=== PATIENT | male | born 1945 | race Hispanic/Latino ===

== ENCOUNTER 2016-08-10 09:06 | Inpatient (IN) | payer MEDICARE ==
[2016-08-10 09:44] VITALS: BMI 25.2
[2016-08-10] MEDS ORDERED: Oxycodone/Acetaminophen 5/325 mg Tab PO STA (09:53)
--- NOTE | 2016-08-10 10:01 | ED PDOC ---
Arrival/HPI <Melyssa Germaniy - Last Filed: 08/10/16 16:17> - General Historian: Patient <Valerie Benitez - Last Filed: 08/10/16 16:22> - General Chief Complaint: Abdominal Pain Time Seen by Provider: 08/10/16 09:45 - History of Present Illness Narrative History of Present Illness (Text): 08/10/16 09:58 71-year-old male presents today with epigastric right sided chest pain that has been worsening over the past 6 months. Patient states he was seen by his primary care physician on the and was told to get a CAT scan of the chest. Patient states he couldn't wait any longer for the CAT scan. Patient states he' s been taking Tylenol with codeine for pain with improvement. Patient states he ran out of his medication and he cannot wait any longer for the CAT scan due to the severe pain. Patient states the pain starts epigastric and radiates towards the right side. He denies radiation of pain to the back. Patient states he feels as if he broke his rib. Patient denies any recent trauma or injury. Denies rectal bleeding. Patient states he has had 20+ pound weight loss over the past 3 months. Patient states he has decreased appetite as the pain worsens with eating. Denies nausea or vomiting. No constipation or diarrhea. No other complaints (Valerie Benitez) Past Medical History - Provider Review Nursing Documentation Reviewed: Yes - Travel History Have you recently traveled outside [place] w/in the past 3 mons?: No - Tetanus Immunization Tetanus Immunization: Unknown - Cardiac Hx Congestive Heart Failure: Yes Hx Internal Defibrillator: Yes Hx Mitral Valve Prolapse: Yes (mitral valve replaced) Hx Pacemaker: Yes (LEFT CHEST WALL) - Pulmonary Hx Respiratory Disorders: No - Neurological HX Cerebrovascular Accident: Yes - HEENT Hx HEENT Disorder: Yes (WEARS RX GLASSES) Hx Deafness: Yes (bilateral hearing aids) - Renal Hx Renal Disorder: No - Endocrine/Metabolic Hx Endocrine Disorders: No - Hematological/Oncological Hx Anemia: Yes - Integumentary Hx Dermatological Disorder: No - Musculoskeletal/Rheumatological Hx Musculoskeletal Disorders: No Hx Falls: No - Gastrointestinal Hx Gastrointestinal Disorders: No - Genitourinary/Gynecological Hx Genitourinary Disorders: Yes (OVERACTIVE BLADDER) - Psychiatric Hx Depression: No Hx Emotional Abuse: No Hx Physical Abuse: No Hx Substance Use: No - Surgical History Hx Coronary Stent: Yes (9) Hx Open Heart Surgery: Yes Hx Vascular Surgery: Yes (mitral) - Anesthesia Hx Anesthesia: Yes Hx Anesthesia Reactions: No Hx Malignant Hyperthermia: No - Suicidal Assessment Feels Threatened In Home Enviroment: No <Valerie Benitez - Last Filed: 08/10/16 16:22> Family/Social History - Physician Review Nursing Documentation Reviewed: Yes Family/Social History: Unknown Family HX Smoking Status: Former Smoker Hx Alcohol Use: No Hx Substance Use: No Hx Substance Use Treatment: No <Valerie Benitez - Last Filed: 08/10/16 16:22> Allergies/Home Meds <Baljinder German - Last Filed: 08/10/16 16:17> <Valerie Benitez - Last Filed: 08/10/16 16:22> Allergies/Adverse Reactions: Allergies No Known Allergies Allergy (Verified 08/10/16 09:44) Home Medications: Home Meds Medication Instructions Recorded Confirmed Carvedilol [Coreg] 25 mg PO BID 03/12/13 08/10/16 Nortriptyline [Nortriptyline] 25 mg HS 03/12/13 08/10/16 [id number] Meq Bid 20 meq PO DAILY 03/12/13 08/10/16 Apixaban [Eliquis] 5 mg PO BID 09/22/13 08/10/16 Digoxin [Digitek] 125 mcg PO HS 08/10/16 08/10/16 Furosemide [Lasix] 40 mg PO DAILY 08/10/16 08/10/16 Losartan [Cozaar] 50 mg PO DAILY 08/10/16 08/10/16 Pravastatin Sodium [Pravachol] 40 mg PO HS 08/10/16 08/10/16 Review of Systems - Review of Systems Constitutional: absent: Fatigue, Fevers ENT: absent: Sinus Congestion Respiratory: absent: SOB, Cough Cardiovascular: Chest Pain. absent: Palpitations Gastrointestinal: Abdominal Pain, Appetite Changes. absent: Constipation, Diarrhea, Nausea, Vomiting Genitourinary Male: absent: Dysuria, Frequency Musculoskeletal: absent: Back Pain, Neck Pain Skin: absent: Rash, Pruritis Neurological: absent: Headache, Dizziness Psychiatric: absent: Anxiety, Depression <Valerie Benitez - Last Filed: 08/10/16 16:22> Physical Exam Vital Signs Reviewed: Yes Temperature: Afebrile Blood Pressure: Normal Pulse: Regular Respiratory Rate: Normal Appearance: Positive for: Well-Appearing, Non-Toxic, Uncomfortable Pain Distress: None Mental Status: Positive for: Alert and Oriented X 3 - Systems Exam Head: Present: Atraumatic Mouth: Present: Moist Mucous Membranes Neck: Present: Normal Range of Motion Respiratory/Chest: Present: Clear to Auscultation, Good Air Exchange, Tender to Palpation (minimal tenderness over right anterior and lateral ribs. ). No: Respiratory Distress, Accessory Muscle Use Cardiovascular: Present: Regular Rate and Rhythm Abdomen: Present: Tenderness (+ epigastric tenderness, + ruq tenderness. no lower abdominal tenderness. ), Normal Bowel Sounds, Guarding. No: Distention, Rebound, McBurney's Point Tender Upper Extremity: Present: Normal ROM Lower Extremity: Present: Edema (+ minimal lower ) Neurological: Present: GCS=15, Speech Normal Skin: Present: Warm, Dry, Normal Color. No: Rashes Psychiatric: Present: Alert, Oriented x 3 <Valerie Benitez T - Last Filed: 08/10/16 16:22> Vital Signs Temp Pulse Resp BP Pulse Ox 08/10/16 13:43 64 18 141/68 96 08/10/16 12:07 61 18 143/71 96 08/10/16 10:57 63 18 145/75 96 08/10/16 09:46 97.4 F L 61 22 149/77 96 Medical Decision Making <Baljinder German - Last Filed: 08/10/16 16:17> <Valerie Benitez - Last Filed: 08/10/16 16:22> ED Course and Treatment: 08/10/16 10:07 pt with chest pain and right-sided abdominal pain 6 months. Patient presents with referral for CT of the chest noncontrast. cbc; wbc; 11.5 cmp; bun; 22 ast, alt and alk phos; elevated amylase: wnl lipase: wnl BNP; 2730 trop: 0.09; unchanged from prior. cxr: wnl CT; Moderate emphysematous changes predominant in the upper lobes. No CT evidence of acute pathology or suspicious mass in the lungs. Cardiomegaly. [id number] enlarged main pulmonary artery. Interval appearance of small ascites in the abdomen and pelvis since the previous exam of uncertain etiology. Distended gallbladder contains gallstones without definite CT evidence of acute cholecystitis. Colonic diverticulosis without evidence of diverticulitis. Mild splenomegaly measures 13.3 centimeter. Mildly enlarged retroperitoneal and para-aortic lymph nodes. pt reassessment; pt feeling better after percocet; discussed results with patient in depth; pt to be admitted. case discussed with ; will admit with surgery consult for abdominal pain with case discussed with dr. riley; impression; abdominal pain, distended gallbladder. Admit med/surg with surgery consult (Valerie Benitez) - Lab Interpretations Lab Results: 08/10/16 10:00 08/10/16 10:00 Lab Results 08/10/16 10:00: WBC 11.5 H, RBC 4.69, Hgb 15.2, Hct 44.6, MCV 95.1, MCH 32.4, MCHC 34.1, RDW 14.8 H, Plt Count 202, MPV 12.4 H, Gran % 82.0 H, Lymph % (Auto) 8.9 L, Orange % (Auto) 5.0, Eos % (Auto) 3.8, Baso % (Auto) 0.3, Gran # 9.40 H, Lymph # 1.0 L, Orange # 0.6, Eos # 0.4, Baso # 0.03, Sodium 142, Potassium 4.1, Chloride 104, Carbon Dioxide 28, Anion Gap 14, BUN 22 H, Creatinine 0.9, Est GFR ( Amer) > 60, Est GFR (Non-Af Amer) > 60, Random Glucose 93, Calcium 8.9, Total Bilirubin 0.9, AST 132 H, ALT 88 H, Alkaline Phosphatase 219 H, Lactate Dehydrogenase 465, Total Creatine Kinase 36, Troponin I 0.09, NT-Pro-B Natriuret Pep 2730 H, Total Protein 6.6, Albumin 3.2, Globulin 3.4, Albumin/ Globulin Ratio 0.9 L, Amylase 55, Lipase 238 - RAD Interpretation Radiology Orders: 08/10/16 09:52 CHEST PORTABLE [RAD] Stat 08/10/16 09:55 CHEST,ABD,PEL W/IV CONT ONLY [CT] Stat - Medication Orders Current Medication Orders: Discontinued Medications Iohexol (Omnipaque 350 100 Ml) Confirm Administered Dose 350 mg .ROUTE .STK-MED ONE Stop: 08/10/16 10:38 Oxycodone/Acetaminophen (Percocet 5/325 Mg Tab) 1 tab PO STAT STA Stop: 08/10/16 09:54 Last Admin: 08/10/16 10:17 Dose: 1 TAB - PA / [employer] / Resident Statement /DO has reviewed & agrees with the documentation as recorded. <Baljinder German - Last Filed: 08/10/16 16:17> Disposition/Present on Arrival <Baljinder German - Last Filed: 08/10/16 16:17> - Present on Arrival Any Indicators Present on Arrival: No History of DVT/PE: No History of Uncontrolled Diabetes: No Urinary Catheter: No History of Decub. Ulcer: No History Surgical Site Infection Following: None - Disposition Have Diagnosis and Disposition been Completed?: Yes Disposition Time: 12:30 Patient Plan: Admission <Valerie Benitez - Last Filed: 08/10/16 16:22> - Disposition Diagnosis: Abdominal pain, Gallstones Disposition: HOSPITALIZED Patient Problems: Current Active Problems Problem Status Diagnosed Abdominal pain Acute Gallstones Acute Condition: FAIR
[2016-08-10 10:07] LABS: ADD MANUAL DIFF? NO
[2016-08-10 10:20] LABS: ALB/GLOB RATIO 0.9 (1.1-1.8); ALKALINE PHOSPHATASE 219 U/L (38-133); ALT/SGPT 88 U/L (7-56); AMYLASE 55 U/L (35-125); AST/SGOT 132 U/L (15-59); BILIRUBIN,TOTAL 0.9 mg/dL (0.2-1.3); BLOOD UREA NITROGEN 22 mg/dL (7-21); CALCIUM 8.9 mg/dL (8.4-10.5); CARBON DIOXIDE 28 mmol/L (21-33); CHLORIDE 104 mmol/L (98-107); GFR AFRICAN-AMERICAN > 60; GLUCOSE,RANDOM 93 mg/dL (70-110); LIPASE 238 U/L (23-300); POTASSIUM 4.1 mmol/L (3.6-5.0); SODIUM 142 mmol/L (132-148); TOTAL PROTEIN 6.6 g/dL (5.8-8.3)
[2016-08-10 10:31] LABS: TROPONIN I 0.09 ng/mL
[2016-08-10 10:34] LABS: BASO # 0.03 K/mm3 (0.0-2.0); BASO % 0.3 % (0.0-3.0); EOS # 0.4 (0.0-0.7); EOS % 3.8 % (1.5-5.0); HEMATOCRIT 44.6 % (42.0-52.0); LYMPH % 8.9 % (22.0-35.0); MEAN CELL VOLUME 95.1 fL (80.0-105.0); MEAN CORPUSCULAR HEMOGLOBIN 32.4 pg (25.0-35.0); MEAN CORPUSCULAR HGB CONC 34.1 g/dl (31.0-37.0); MEAN PLATELET VOLUME 12.4 fl (7.0-11.0); MONO # 0.6 (0.1-0.6); PLATELET COUNT 202 10^3/uL (120.0-450.0); RED CELL DISTRIBUTION WIDTH 14.8 % (11.5-14.5); WHITE BLOOD COUNT 11.5 10^3/ul (4.5-11.0)
--- NOTE | 2016-08-10 10:34 | RAD ---
HISTORY: epigastric pain/chest pain COMPARISON: 09/11/2013 FINDINGS: LUNGS: No active pulmonary disease. PLEURA: No significant pleural effusion identified, no pneumothorax apparent. CARDIOVASCULAR: AICD. Cardiac valvular prosthesis. OSSEOUS STRUCTURES: No significant abnormalities. VISUALIZED UPPER ABDOMEN: Normal. OTHER FINDINGS: None. IMPRESSION: No active disease.
[2016-08-10] MEDS ORDERED: Iohexol 350 MG/100 ML VIAL ONE (10:37)
--- NOTE | 2016-08-10 12:23 | CT ---
PROCEDURE: CT Chest, Abdomen and Pelvis with intravenous contrast HISTORY: ruq abd pain COMPARISON: Comparison is made to the previous CT of the abdomen and pelvis dated 09/11/2013. TECHNIQUE: IV dose administered: 100 mL Omnipaque 350 Radiation dose: Total exam DLP = 507.95 mGy-cm. FINDINGS: CT CHEST WITH CONTRAST: LUNGS: Moderate to mildly severe diffuse emphysema predominant in the upper lobes. Again seen are pleural thickening and or pleural base linear opacity at the left lower chest. MEDIASTINUM: The main pulmonary artery is moderately enlarged. The thoracic aorta is ectatic and tortuous. Postsurgical changes are again seen in the mediastinal suggestive of prior cardiac surgery. Pacemaker wires seen extending to the heart. The heart is moderately enlarged. LYMPH NODES: Mildly enlarged 1.5 centimeter precarinal lymph node is seen. PLEURA: Trace left pleural effusion is seen. BONES: Unremarkable. OTHER FINDINGS: None. CT ABDOMEN AND PELVIS: LIVER: Again seen is low-attenuation lesion at the right liver lobe likely represent benign cyst or hemangioma. Also again seen are small sub centimeter right liver lobe low-attenuation lesion. The portal vein is patent. Mild periportal edema is also noted. GALLBLADDER AND BILE DUCTS: The gallbladder is mildly distended contains gallstone. PANCREAS: Unremarkable. No gross lesion or ductal dilatation. SPLEEN: Spleen is mildly enlarged measures 13.3 centimeter P ADRENALS: Unremarkable. No mass. KIDNEYS AND URETERS: The kidneys enhance symmetrically. Again seen is small focal defect in the left renal cortex likely due to old infarct or injury. VASCULATURE: Unremarkable. No aortic aneurysm. BOWEL: Descending and sigmoid colon diverticulosis are again seen without evidence of diverticulitis. No evidence of small bowel obstruction. APPENDIX: No evidence of appendicitis. PERITONEUM: Interval appearance of small ascites in the abdomen and pelvis since the previous exam. LYMPH NODES: There are prominent retroperitoneal and para-aortic lymph nodes seen at the mid and lower abdomen appear larger compared to the previous exam. BLADDER: Mild urinary bladder wall thickening is seen. REPRODUCTIVE: Prostate is mildly enlarged. BONES: No acute fracture. OTHER FINDINGS: None. IMPRESSION: Moderate emphysematous changes predominant in the upper lobes. No CT evidence of acute pathology or suspicious mass in the lungs. Cardiomegaly. [id number] enlarged main pulmonary artery. Interval appearance of small ascites in the abdomen and pelvis since the previous exam of uncertain etiology. Distended gallbladder contains gallstones without definite CT evidence of acute cholecystitis. Colonic diverticulosis without evidence of diverticulitis. Mild splenomegaly measures 13.3 centimeter. Mildly enlarged retroperitoneal and para-aortic lymph nodes.
--- NOTE | 2016-08-10 12:51 | CARD ---
APPROVED REPORT EKG Measurement Heart [id number] AL 144P [id number] <Conclusion> AV sequential or dual chamber electronic pacemaker
--- NOTE | 2016-08-10 15:29 | CP.PCM.CON ---
History of Present Illness - History of Present Illness History of Present Illness: SURGERY CONSULT NOTE FOR DR. WHEELER 71M presents to [facility] with abdominal pain. Patient states pain started two months ago and has been increasing in intensity since. Patient states the pain is located in the epigastric region and radiates to the right upper quadrant. Originally thought the pain was due to a broken rib and was self treating with pain medications at home which have now stopped working. Pain gets worse with food. He denies fevers, chills, nausea, vomiting, diarrhea and constipation. He has not had this pain before in the past. 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 Social: Denies tobacco, alcohol and illicit drugs Allergies: NKDA Past Patient History - Tetanus Immunizations Tetanus Immunization: Unknown - Past Social History Smoking Status: Former Smoker - CARDIAC Hx Congestive Heart Failure: Yes Hx Internal Defibrillator: Yes Hx Mitral Valve Prolapse: Yes (mitral valve replaced) Hx Pacemaker: Yes (LEFT CHEST WALL) - PULMONARY Hx Respiratory Disorders: No - NEUROLOGICAL HX Cerebrovascular Accident: Yes - HEENT Hx HEENT Problems: Yes (WEARS RX GLASSES) Hx Deafness: Yes (bilateral hearing aids) - RENAL Hx Chronic Kidney Disease: No - ENDOCRINE/METABOLIC Hx Endocrine Disorders: No - HEMATOLOGICAL/ONCOLOGICAL Hx Anemia: Yes - INTEGUMENTARY Hx Dermatological Problems: No - MUSCULOSKELETAL/RHEUMATOLOGICAL Hx Musculoskeletal Disorders: No Hx Falls: No - GASTROINTESTINAL Hx Gastrointestinal Disorders: No - GENITOURINARY/GYNECOLOGICAL Hx Genitourinary Disorders: Yes (OVERACTIVE BLADDER) - PSYCHIATRIC Hx Depression: No Hx Emotional Abuse: No Hx Physical Abuse: No Hx Substance Use: No - SURGICAL HISTORY Hx Coronary Stent: Yes (9) Hx Open Heart Surgery: Yes Hx Vascular Surgery: Yes (mitral) - ANESTHESIA Hx Anesthesia: Yes Hx Anesthesia Reactions: No Hx Malignant Hyperthermia: No Meds Allergies/Adverse Reactions: Allergies Allergy/AdvReac Type Severity Reaction Status Date / Time No Known Allergies Allergy Verified 08/10/16 09:44 Physical Exam - Constitutional Appears: Non-toxic, No Acute Distress - Head Exam Head Exam: ATRAUMATIC - ENT Exam ENT Exam: Mucous Membranes Moist - Respiratory Exam Respiratory Exam: Clear to Auscultation Bilateral, NORMAL BREATHING PATTERN - Cardiovascular Exam Cardiovascular Exam: REGULAR RHYTHM, +S1, +S2 - GI/Abdominal Exam GI & Abdominal Exam: Soft, Tenderness. absent: Distended, Firm, Guarding, Rebound, Rigid Additional comments: epigastric pain, RUQ pain, positive chan's sign - Extremities Exam Extremities exam: Positive for: normal inspection. Negative for: tenderness - Neurological Exam Neurological exam: Alert, Oriented x3 - Psychiatric Exam Psychiatric exam: Normal Affect, Normal Mood - Skin Skin Exam: Dry, Intact, Normal Color, Warm Results - Vital Signs Recent Vital Signs: Last Vital Signs Temp 97.4 F L 08/10/16 09:46 Pulse 64 08/10/16 13:43 Resp 18 08/10/16 13:43 BP 141/68 08/10/16 13:43 Pulse Ox 96 08/10/16 13:43 - Labs Result Diagrams: 08/10/16 10:00 08/10/16 10:00 Assessment & Plan - Assessment and Plan (Free Text) Assessment: 71M presents with RUQ pain likely 2/2 cholelithiasis/biliary colic CT: Distended gallbladder, cholelithiasis, no evidence of cholecystitis Plan: - NPO, IVF, Abx - Pain control, anti-emetic, anti-pyretics PRN - F/u US results - F/u HIDA Discussed with Dr. Seble Ellis, PGY1
[2016-08-10] MEDS ORDERED: Sodium Chloride 0.9% 1,000 ML IV SCH (17:15)
[2016-08-10] MEDS: cefTRIAXone 1 gm 100 ML IVPB SCH (19:17)
[2016-08-10] MEDS ORDERED: Pneumococcal 23-Valent Vaccine IM ONE (22:54)
[2016-08-10] MEDS ORDERED: Influenza Vaccine 45 MCG/0.5 ml IM ONE (22:54)
[2016-08-11] MEDS ORDERED: Digoxin 125 mcg (0.125 mg) Tab PO STA (00:51)
--- NOTE | 2016-08-11 00:59 | CP.PCM.PN ---
Subjective - Date & Time of Evaluation Date of Evaluation: 08/11/16 Time of Evaluation: 00:55 - Subjective Subjective: S:Seen at bedside. Has no acute symptoms. Wants home meds that he did not have all day yesterday. Pertinent medical record was reviewed. O: Last Vital Signs 3 Temp 97.5 F L 08/10/16 22:32 Pulse 58 L 08/10/16 22:32 Resp 18 08/10/16 22:32 BP 125/75 08/10/16 22:32 Pulse Ox 94 L 08/10/16 16:00 Awake, alert, not in distress. LUNGS:Normal breathing pattern. A:Abdominal pain-epigastric. HTN. P:Stat dose of Amiodarone,Cozzar, Digitek and Coreg each was ordered. Objective - Vital Signs/Intake and Output Vital Signs (last 24 hours): Temp Pulse Resp BP Pulse Ox 97.5 F L 58 L 18 125/75 94 L 08/10/16 22:32 08/10/16 22:32 08/10/16 22:32 08/10/16 22:32 08/10/16 16:00 Intake and Output: 08/10/16 08/11/16 18:59 06:59 Intake Total 240 Balance 240 - Medications Medications: Current Medications Acetaminophen (Tylenol 325mg Tab) 650 mg PO Q6H PRN PRN Reason: Fever >100.4 F Carvedilol (Coreg) 25 mg PO STAT STA Stop: 08/11/16 00:51 Digoxin (Lanoxin) 0.125 mg PO STAT STA Stop: 08/11/16 00:52 Ceftriaxone Sodium (Rocephin 1 Gram Ivpb) 100 mls @ 100 mls/hr IVPB DAILY [facility] PRN Reason: Protocol Last Admin: 08/10/16 19:17 Dose: 100 mls/hr Sodium Chloride (Sodium Chloride 0.9%) 1,000 mls @ 100 mls/hr IV .Q10H [facility] Last Admin: 08/10/16 19:17 Dose: 100 mls/hr Ketorolac Tromethamine (Toradol) 5 mg IVP Q6 PRN PRN Reason: Pain, moderate (4-7) Ondansetron HCl (Zofran Inj) 4 mg IVP Q6H PRN PRN Reason: Nausea/Vomiting
--- NOTE | 2016-08-11 07:12 | CP.PCM.PN ---
Subjective - Date & Time of Evaluation Date of Evaluation: 08/11/16 Time of Evaluation: 06:40 - Subjective Subjective: Pt seen and evaluated at the bedside. Pt denies abdominal pain, n/v/fever/ chills. Objective - Vital Signs/Intake and Output Vital Signs (last 24 hours): Temp Pulse Resp BP Pulse Ox 97.5 F L 60 18 126/78 94 L 08/10/16 22:32 08/11/16 01:07 08/10/16 22:32 08/11/16 01:07 08/10/16 16:00 Intake and Output: 08/11/16 08/11/16 06:59 18:59 Intake Total 1680 Balance 1680 - Medications Medications: Current Medications Acetaminophen (Tylenol 325mg Tab) 650 mg PO Q6H PRN PRN Reason: Fever >100.4 F Amiodarone HCl (Cordarone) 200 mg PO BID [facility] Apixaban (Eliquis) 5 mg PO BID [facility] PRN Reason: Protocol Carvedilol (Coreg) 25 mg PO BID [facility] Digoxin (Lanoxin) 0.125 mg PO 1400 [facility] Ceftriaxone Sodium (Rocephin 1 Gram Ivpb) 100 mls @ 100 mls/hr IVPB DAILY [facility] PRN Reason: Protocol Last Admin: 08/10/16 19:17 Dose: 100 mls/hr Sodium Chloride (Sodium Chloride 0.9%) 1,000 mls @ 100 mls/hr IV .Q10H [facility] Last Admin: 08/10/16 19:17 Dose: 100 mls/hr Ketorolac Tromethamine (Toradol) 5 mg IVP Q6 PRN PRN Reason: Pain, moderate (4-7) Losartan Potassium (Cozaar) 50 mg PO DAILY [facility] Nortriptyline HCl (Pamelor) 25 mg PO HS [facility] Ondansetron HCl (Zofran Inj) 4 mg IVP Q6H PRN PRN Reason: Nausea/Vomiting - Additional Findings Additional findings: - Constitutional Appears: Non-toxic, No Acute Distress - Head Exam Head Exam: ATRAUMATIC - ENT Exam ENT Exam: Mucous Membranes Moist - Respiratory Exam Respiratory Exam: Clear to Auscultation Bilateral, NORMAL BREATHING PATTERN - Cardiovascular Exam Cardiovascular Exam: REGULAR RHYTHM, +S1, +S2 - GI/Abdominal Exam GI & Abdominal Exam: Soft, Tenderness of epigastric region. absent: Distended, Firm, Guarding, Rebound, Rigid Additional comments: epigastric pain - Extremities Exam Extremities exam: Positive for: normal inspection. Negative for: tenderness - Neurological Exam Neurological exam: Alert, Oriented x3 - Psychiatric Exam Psychiatric exam: Normal Affect, Normal Mood - Skin Skin Exam: Dry, Intact, Normal Color, Warm Assessment and Plan - Assessment and Plan (Free Text) Plan: 71M presents with RUQ pain likely 2/2 cholelithiasis/biliary colic CT: Distended gallbladder, cholelithiasis, no evidence of cholecystitis Plan: - HHD, IVF, Abx -Tentative cholecystectomy on - Pain control, anti-emetic, anti-pyretics PRN - US ABD: gallbladder sludge and gallstones w/o ultrasound evidence of acute cholecystitis - HIDA: gallbladder at 15 minutes, CBD at 5 minutes Further recs as per Dr. Artem Dozier, PGY1
--- NOTE | 2016-08-11 07:35 | US ---
HISTORY: RUQ pain, possible cholecystitis on CT COMPARISON: Comparison is made to the previous CT dated 08/10/2016 TECHNIQUE: Sonographic evaluation of the abdomen. FINDINGS: LIVER: Measures 15.6 cm. Mild heterogeneous increased echogenicity of the liver parenchyma. No mass. No intrahepatic bile duct dilatation. GALLBLADDER: There are small gallstones seen. There is also small amount of sludge. No evidence of significant gallbladder wall thickening. COMMON BILE DUCT: Measures 5.7 mm. No stones. No dilatation. PANCREAS: Unremarkable as visualized. No mass. No ductal dilatation. RIGHT KIDNEY: Measures 11 x 3.98 x 5.7cm. Normal echogenicity. No calculus, mass, or hydronephrosis. LEFT KIDNEY: Measures 12.4 x 4.8 x 5.1cm. Normal echogenicity. No calculus, mass, or hydronephrosis. SPLEEN: Spleen is mildly enlarged measures 13.3 centimeter. AORTA: No aneurysmal dilatation. IVC: Unremarkable. OTHER FINDINGS: There is a trace ascites in the abdomen. IMPRESSION: Gallbladder sludge and gallstones without definite ultrasound evidence of acute cholecystitis. Mild splenomegaly measures 13.3 centimeter. Trace ascites in the upper abdomen. Mildly echogenic liver suggestive of fatty liver.
[2016-08-11 08:14] LABS: HEMATOCRIT 40.2 % (42.0-52.0); MEAN CORPUSCULAR HEMOGLOBIN 32.2 pg (25.0-35.0); MEAN CORPUSCULAR HGB CONC 33.8 g/dl (31.0-37.0); MEAN PLATELET VOLUME 11.9 fl (7.0-11.0); RED CELL DISTRIBUTION WIDTH 15.1 % (11.5-14.5); WHITE BLOOD COUNT 9.6 10^3/ul (4.5-11.0)
[2016-08-11 08:45] LABS: ALB/GLOB RATIO 0.9 (1.1-1.8); ALKALINE PHOSPHATASE 190 U/L (38-133); ALT/SGPT 82 U/L (7-56); AST/SGOT 120 U/L (15-59); BILIRUBIN,TOTAL 1.1 mg/dL (0.2-1.3); BLOOD UREA NITROGEN 14 mg/dL (7-21); CALCIUM 8.5 mg/dL (8.4-10.5); CARBON DIOXIDE 29 mmol/L (21-33); CHLORIDE 104 mmol/L (98-107); GFR AFRICAN-AMERICAN > 60; GLUCOSE,RANDOM 81 mg/dL (70-110); POTASSIUM 4.3 mmol/L (3.6-5.0); SODIUM 140 mmol/L (132-148); TOTAL PROTEIN 5.7 g/dL (5.8-8.3)
[2016-08-11] MEDS: cefTRIAXone 1 gm 100 ML IVPB SCH (09:52)
[2016-08-11] MEDS ORDERED: Sodium Chloride 0.9% 1,000 ML IV SCH (10:00)
[2016-08-11] MEDS: Enoxaparin 60 mg Syringe SC SCH ×2 (10:45→21:06)
--- NOTE | 2016-08-11 10:58 | PN ---
DATE: 08/11/2016 The patient was seen at the request of the patient and family. Will discuss with Dr. Dong. Will discuss with Dr. Pruett and Dr. Moon. Francisco Mcgill MD cc: [phone] TT: 08/11/2016 10:58:09 Confirmation # [id number] Dictation # [id number] cn
--- NOTE | 2016-08-11 14:01 | NM ---
PROCEDURE: Nuclear Medicine Hepatobiliary Scan HISTORY: RUQ pain COMPARISON: August 11, 2016. Abdominal ultrasound. Summary of findings on the comparison examination: Gallbladder sludge and gallstones without definite ultrasound evidence of acute cholecystitis. TECHNIQUE: 5.2 mCi of technetium 99m Mebrofenin was administered intravenously. Planar images of the abdomen were obtained at 5 min intervals to 60 mins. Delayed images were also obtained. FINDINGS: LIVER: Timely and homogenous uptake. COMMON BILE DUCT: identified at 5 mins. GALLBLADDER: identified at 15 mins. SMALL BOWEL: Identified at 15 mins. IMPRESSION: Normal Hepatobiliary Scan. The cystic duct is patent.
[2016-08-11 14:17] LABS: INR 1.31 (0.93-1.08); PARTIAL THROMBOPLASTIN TIME 33.1 Seconds (23.7-30.8)
[2016-08-11] MEDS: Digoxin 125 mcg (0.125 mg) Tab PO SCH (14:34)
--- NOTE | 2016-08-11 21:21 | HP ---
CHIEF COMPLAINT AND HISTORY OF PRESENT ILLNESS: This is a 71-year-old male who is [facility] complaining of epigastric pain. He said that the pain has been worsening over the past 6 camryn hs. He had seen his primary care physician and was waiting to get a CAT scan of his chest. The patie nt said he has been taking Tylenol with codeine with some improvement. He had run out of his medicat ions. The patient says he has been losing weight as well. He has lost about 20 pounds. He denies a ny bleeding. He denies any nausea or vomiting. He has no constipation. He has no fever or chills, no headaches. He says he has been trying to eat a good appetite, but has been losing weight. He has no fevers or chills. REVIEW OF SYSTEMS: All other review of symptoms are within normal limits except as mentioned. ALLERGIES: No known drug allergies. PAST MEDICAL HISTORY: Coronary artery disease, hypertension, dyslipidemia. PAST SURGICAL HISTORY: AICD, CABG, giant cell tumor of right elbow. SOCIAL HISTORY: Denies smoking, drinking alcohol. ALLERGIES: No known drug allergies. MEDICATIONS: No active medications. PHYSICAL EXAMINATION: VITAL SIGNS: He has a temperature of 97.7, pulse of 60, blood pressure 137/71, respirations 18, O2 saturation 92%. Height is 5 feet 4, weight is 147 pounds, BMI is 25.2. GENERAL: Patient lying in bed, flat, and in no apparent distress. HEAD AND NECK EXAM: Atraumatic, normocephalic. Conjunctivae are pink. Throat clear and mouth with moist mucosa. Oropharynx benign. EYES: Extraocular movements are intact. PERRLA. NECK: Supple. No JVD, thyromegaly, or adenopathy. No bruits. HEART: S1 and S2 regular rate and rhythm. No murmurs, rubs, or gallops. LUNGS: Clear to auscultation bilaterally. No wheezing rales or rhonchi appreciated. No retraction s on exam. ABDOMEN: Soft, nontender, nondistended. Bowel sounds are positive in all quadrants. No rebound. No hepatosplenomegaly. EXTREMITIES: No cyanosis, clubbing, or edema. NEURO: No facial asymmetry, tongue is midline, no uvula deviation. Power is 5/5 in upper extremity and 5/5 in lower extremity. Sensation is normal in upper extremity and lower extremity. PSYCH: Awake, alert, oriented x3. No anxiety or depression symptoms. Good insight. Normal affec t. : No CVA tenderness VASCULAR: 2+ pulses in carotid and pedal pulses. SKIN: No erythema or abnormal nodules noted. SPINE: Normal curvature. LYMPHADENOPATHY: No anterior cervical or posterior cervical adenopathy. No inguinal adenopathy. LABORATORY DATA: CT of the abdomen and pelvis shows enlarged liver. There are low attenuation lesio ns that are present. There are moderate emphysematous changes in the upper lobes, distended gallblad sidney, gallstones without evidence of acute cholecystitis, mild splenomegaly. Chest x-ray shows no act patrice disease. EKG shows a heart rate of 60, it is AV paced. Ultrasound done shows gallbladder sludge and gallstones without evidence of acute cholecystitis. The re is a fatty liver. Biliary HIDA scan shows normal hepatobiliary scan. The cystic duct is patent. ASSESSMENT: 1. Abdominal pain. 2. Hepatomegaly. 3. Splenomegaly. 4. Liver lesions, possibly benign cyst versus hemangioma. 5. Weight loss. PLAN: The patient is currently comfortable. He is currently on amiodarone. This will be continued. The patient is on Coreg. This will be continued for his coronary disease. He is on losartan for h is blood pressure. He is on Lovenox for anticoagulation because his Eliquis has been on hold for pos sible surgical intervention. The patient is on digoxin. He is receiving Rocephin for antibiotic. H e is on IV fluids with normal saline. I will discontinue the patient's IV fluids at this point becau se he is eating. The patient is on Tylenol as needed. He is on Zofran. I did speak to Dr. Mcgill from surgery who is on the case and also Dr. Smith about the case. He may need endoscopy to look at those liver lesions closely. Silvino Dong MD cc: [id number] TT: 08/11/2016 21:20:55 dina
[2016-08-11] MEDS: Oxycodone/Acetaminophen 5/325 mg Tab PO PRN (23:32)
--- NOTE | 2016-08-12 08:28 | CON ---
DATE: 08/11/2016 This patient was seen and evaluated earlier, discussed with Dr. Dong. This 71-year-old patient w ith a past medical history of coronary artery disease, hypertension, dyslipidemia, status post AICD p lacement presented to the hospital with complaints of intermittent episodes of progressive pain in th e epigastric area. At times, he feels the pain radiate to the right side. Complains of pain ____ af ter p.o. intake. No fever, no vomiting. History of weight loss, more than 10 pounds with a period o f 3-4 months. OTHER PAST MEDICAL HISTORY: Significant as above, history of colonic polyp, gastric ulceration, GI b leeding in the past. PAST SURGICAL HISTORY: Significant for excision of the tumor right elbow, CABG. SOCIAL HISTORY: Denied smoking, no alcohol. ALLERGIES: No known drug allergy. REVIEW OF SYSTEMS: Positive as above. All the 10-point systems reviewed. PHYSICAL EXAMINATION: GENERAL: The patient is lying on the bed, not in acute distress. VITAL SIGNS: Temperature is 97.7, pulse 66, blood pressure 137/71. HEENT: Atraumatic, anicteric. NECK: Supple. HEART: S1, S2 heard. LUNGS: Bilateral air entry present. EXTREMITIES: No cyanosis, no clubbing, mild edema present. NEUROLOGIC: Moves all the extremities. LABORATORY DATA: Hemoglobin 13.6, hematocrit 40.2, WBCs 9.6, platelets 189. BUN 14, creatinine 0.8. LFTs showed albumin 2.7, AST 120, ALT 82, alkaline phosphatase 190. The CT scan of the abdomen and pelvis was reviewed, which showed gallstones, small ascites and hepato megaly. Ultrasound scan of the abdomen showed multiple small gallstones. No wall thickening, CBD me asured 5.7 mm, normal, pancreas normal. Subsequent CT was also reviewed. IMPRESSION: This 71-year-old patient admitted with progressive weight loss of nearly close to 20 jairo nds in the last 3 months, history of chronic abdominal pain, has abdominal pain in the epigastric are a, has a history of loss of appetite, abdominal symptoms. PHYSICAL EXAMINATION: GENERAL: The patient is lying on the bed, not in acute distress. ABDOMEN: Soft. There is no mass palpable, no tenderness. VITAL SIGNS: Temperature is 97.7, blood pressure 131/71, pulse 60, respirations ____, O2 saturation is ____. IMPRESSION: This 79-year-old patient initially presented because of the worsening of the epigastric abdominal discomfort, history of loss of weight. Would recommend hepatomegaly. A small liver lesion is noticed. This CAT scan was compared with the one done ____. REVIEW OF SYSTEMS: A 10-point system reviewed, negative. PHYSICAL EXAMINATION: VITAL SIGNS: Temperature 97.7, blood pressure 137/71, pulse 60, respiration is 18. HEENT: Atraumatic, anicteric. NECK: Supple. HEART: S1, S2 heard. LUNGS: Bilateral air entry present. ABDOMEN: Soft. There is no tenderness. EXTREMITIES: No cyanosis, no clubbing. ____. LABORATORY DATA: LFTs mildly elevated, AST is 120, ALT is 62 and alkaline phosphatase 190, shows mil d improvement compared to the abdominal x-ray done yesterday, of the ultrasound ____. The CAT scan w as also reviewed. Hepatic lesion appears to be stable. IMPRESSION: A 71-year-old patient admitted with significant weight loss of nearly 20 pounds, worseni ng of the abdominal pain, especially epigastric pain, history of coronary artery disease. The patien t does have a large ____. The patient had HIDA scan done, which was negative, history of gallstones. Would recommend upper gastrointestinal endoscopy to rule out any peptic ulcer disease, rule out neopl chago. Discussed with Dr. Dong. The patient is scheduled for the procedure in a.m. Kiana Smith MD cc: [id number] TT: 08/12/2016 08:23:07 Confirmation # [id number] Dictation # [id number]
--- NOTE | 2016-08-12 08:31 | CP.PCM.PN ---
Subjective - Date & Time of Evaluation Date of Evaluation: 08/12/16 Time of Evaluation: 07:40 - Subjective Subjective: Pt seen and evaluated at the bedside. Pt denies N/V overnight. Afebrile. Abdominal pain has been improved today. Objective - Vital Signs/Intake and Output Vital Signs (last 24 hours): Temp Pulse Resp BP Pulse Ox 97.7 F 66 18 137/71 92 L 08/11/16 16:32 08/11/16 17:26 08/11/16 16:32 08/11/16 17:26 08/11/16 16:32 Intake and Output: 08/12/16 08/12/16 06:59 18:59 Intake Total 840 Balance 840 - Medications Medications: Current Medications Acetaminophen (Tylenol 325mg Tab) 650 mg PO Q6H PRN PRN Reason: Fever >100.4 F Amiodarone HCl (Cordarone) 200 mg PO BID [facility] Last Admin: 08/11/16 17:25 Dose: 200 mg Carvedilol (Coreg) 25 mg PO BID [facility] Last Admin: 08/11/16 17:26 Dose: 25 mg Digoxin (Lanoxin) 0.125 mg PO 1400 [facility] Last Admin: 08/11/16 14:34 Dose: Not Given Enoxaparin Sodium (Lovenox) 60 mg SC Q12H [facility] PRN Reason: Protocol Last Admin: 08/11/16 21:06 Dose: 60 mg Ceftriaxone Sodium (Rocephin 1 Gram Ivpb) 100 mls @ 100 mls/hr IVPB DAILY [facility] PRN Reason: Protocol Last Admin: 08/11/16 09:52 Dose: 100 mls/hr Ketorolac Tromethamine (Toradol) 5 mg IVP Q6 PRN PRN Reason: Pain, moderate (4-7) Last Admin: 08/11/16 20:59 Dose: 5 mg Losartan Potassium (Cozaar) 50 mg PO DAILY [facility] Last Admin: 08/11/16 09:52 Dose: Not Given Nortriptyline HCl (Pamelor) 25 mg PO HS [facility] Last Admin: 08/11/16 22:26 Dose: Not Given Ondansetron HCl (Zofran Inj) 4 mg IVP Q6H PRN PRN Reason: Nausea/Vomiting Oxycodone/Acetaminophen (Percocet 5/325 Mg Tab) 1 tab PO Q4H PRN PRN Reason: Pain, moderate (4-7) Stop: 08/14/16 22:42 Last Admin: 08/11/16 23:32 Dose: 1 tab - Labs Labs: 08/11/16 08:00 08/11/16 08:00 PT 14.1 Seconds (9.9-11.8) H 08/11/16 14:01 INR 1.31 (0.93-1.08) H 08/11/16 14:01 APTT 33.1 Seconds (23.7-30.8) H 08/11/16 14:01 - Additional Findings Additional findings: - Constitutional Appears: Non-toxic, No Acute Distress - Head Exam Head Exam: ATRAUMATIC - ENT Exam ENT Exam: Mucous Membranes Moist - Respiratory Exam Respiratory Exam: Clear to Auscultation Bilateral, NORMAL BREATHING PATTERN - Cardiovascular Exam Cardiovascular Exam: REGULAR RHYTHM, +S1, +S2 - GI/Abdominal Exam GI & Abdominal Exam: Soft, Tenderness of epigastric region. absent: Distended, Firm, Guarding, Rebound, Rigid - Extremities Exam Extremities exam: Positive for: normal inspection. Negative for: tenderness - Neurological Exam Neurological exam: Alert, Oriented x3 - Psychiatric Exam Psychiatric exam: Normal Affect, Normal Mood - Skin Skin Exam: Dry, Intact, Normal Color, Warm Assessment and Plan - Assessment and Plan (Free Text) Plan: 71M presents with RUQ pain likely 2/2 cholelithiasis/biliary colic CT: Distended gallbladder, cholelithiasis, no evidence of cholecystitis US ABD: gallbladder sludge and gallstones w/o ultrasound evidence of acute cholecystitis HIDA: gallbladder at 15 minutes, CBD at 5 minutes Cardiac consultation: Plan: - IVF, Abx -Tentative OR on , NPO - Pain control, anti-emetic, anti-pyretics PRN Further recs as per Dr. Artem Dozier, PGY1
--- NOTE | 2016-08-12 08:46 | PN ---
DATE: 08/12/2016 SUBJECTIVE: The patient says he was having abdominal pain yesterday after he had a meal. He has no complaints of any chest pain or shortness of breath, no headaches. PHYSICAL EXAMINATION: VITAL SIGNS: Temperature is 97.7, pulse of 66, blood pressure is 137/71, respirations 18. GENERAL: The patient comfortable, in no acute distress. HEENT: Anicteric sclerae. Moist mucosa. NECK: No JVD or adenopathy. CARDIAC: S1/S2. No murmurs. No rubs. Regular. RESPIRATORY: Clear to auscultation bilaterally. No wheezes, rales, or rhonchi. Good air entry. ABDOMEN: Bowel sounds are positive, soft, nontender, and nondistended. EXTREMITIES: No edema. Has 1+ pulses. LABORATORY DATA: White count of 9.6, hemoglobin 13.6, creatinine 0.8. The patient's HIDA scan that was done is a normal hepatobiliary scan, the cystic duct is normal. ASSESSMENT: 1. Abdominal pain. 2. Hepatosplenomegaly. 3. Liver lesions, probably benign cyst versus hemangioma. 4. Weight loss. 5. Coronary artery disease, status post coronary artery bypass graft. 6. Cholelithiasis. 7. Atrial fibrillation, on anticoagulation. PLAN: The patient is currently on amiodarone, so he will continue. He is on Coreg. The patient is receiving losartan for high blood pressure. His is on Lovenox. Awaiting decision about surgery. Th e patient is on . The patient is on Tylenol. He is currently on a liquid diet. I did speak to Dr. Smith regarding the case yesterday. I am not sure if the patient has an acute need for surgi xochitl intervention. He may be having abdominal discomfort after eating secondary to the hepatosplenome mary. I am not sure of the etiology of hepatosplenomegaly. I will await further input from the [facility]. Silvino Dong MD cc: [id number] TT: 08/12/2016 08:46:13 Confirmation # [id number] Dictation # [id number] mn
[2016-08-12] MEDS: cefTRIAXone 1 gm 100 ML IVPB SCH (10:09)
[2016-08-12] MEDS: Enoxaparin 60 mg Syringe SC SCH (10:13)
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
[2016-08-12] MEDS: Digoxin 125 mcg (0.125 mg) Tab PO SCH (12:59)
[2016-08-12] MEDS ORDERED: Propofol 10 mg/ml Inj (20 ML) ONE ×3 (18:07→18:49)
[2016-08-12] MEDS ORDERED: Lidocaine 2% Inj (20ml) ONE (18:07)
[2016-08-12] MEDS ORDERED: Lactated Ringer's 1,000 ML IV SCH (18:30)
[2016-08-12] MEDS ORDERED: Sodium Chloride 0.9% 1,000 ML IV SCH (23:15)
[2016-08-13 07:19] LABS: ADD MANUAL DIFF? NO
[2016-08-13 07:25] LABS: BASO # 0.02 K/mm3 (0.0-2.0); BASO % 0.2 % (0.0-3.0); EOS # 0.3 (0.0-0.7); EOS % 2.8 % (1.5-5.0); GRAN # 9.53 (1.4-6.5); GRAN % 81.5 % (50.0-68.0); HEMATOCRIT 43.9 % (42.0-52.0); LYMPH # 1.2 (1.2-3.4); LYMPH % 9.8 % (22.0-35.0); MEAN CORPUSCULAR HEMOGLOBIN 31.4 pg (25.0-35.0); MEAN PLATELET VOLUME 12.1 fl (7.0-11.0); MONO # 0.7 (0.1-0.6); MONO % 5.7 % (1.0-6.0); PLATELET COUNT 214 10^3/uL (120.0-450.0); RED CELL DISTRIBUTION WIDTH 15.2 % (11.5-14.5); WHITE BLOOD COUNT 11.7 10^3/ul (4.5-11.0)
[2016-08-13 07:36] LABS: INR 1.25 (0.93-1.08); PARTIAL THROMBOPLASTIN TIME 32.5 Seconds (23.7-30.8)
--- NOTE | 2016-08-13 07:40 | CP.PCM.PN ---
Subjective - Date & Time of Evaluation Date of Evaluation: 08/13/16 Time of Evaluation: 06:40 - Subjective Subjective: General Surgery Dr. Mcgill Pt S&E @bedside. pt upset that surgery today was cancelled. denies F/C, N/ V. Objective - Vital Signs/Intake and Output Vital Signs (last 24 hours): Temp Pulse Resp BP Pulse Ox 98.1 F 63 20 128/76 98 08/12/16 18:50 08/12/16 18:50 08/12/16 18:50 08/12/16 18:50 08/12/16 18:50 Intake and Output: 08/13/16 08/13/16 06:59 18:59 Intake Total 0 Balance 0 - Medications Medications: Current Medications Acetaminophen (Tylenol 325mg Tab) 650 mg PO Q6H PRN PRN Reason: Fever >100.4 F Amiodarone HCl (Cordarone) 200 mg PO BID [facility] Last Admin: 08/12/16 10:10 Dose: 200 mg Carvedilol (Coreg) 25 mg PO BID [facility] Last Admin: 08/12/16 10:10 Dose: 25 mg Digoxin (Lanoxin) 0.125 mg PO 1400 [facility] Last Admin: 08/12/16 12:59 Dose: 0.125 mg Enoxaparin Sodium (Lovenox) 60 mg SC Q12H [facility] PRN Reason: Protocol Last Admin: 08/12/16 10:13 Dose: 60 mg Sodium Chloride (Sodium Chloride 0.9%) 1,000 mls @ 100 mls/hr IV .Q10H [facility] Ketorolac Tromethamine (Toradol) 5 mg IVP Q6 PRN PRN Reason: Pain, moderate (4-7) Last Admin: 08/11/16 20:59 Dose: 5 mg Losartan Potassium (Cozaar) 50 mg PO DAILY [facility] Last Admin: 08/12/16 10:10 Dose: 50 mg Nortriptyline HCl (Pamelor) 25 mg PO HS [facility] Last Admin: 08/12/16 21:56 Dose: 25 mg Ondansetron HCl (Zofran Inj) 4 mg IVP Q6H PRN PRN Reason: Nausea/Vomiting Oxycodone/Acetaminophen (Percocet 5/325 Mg Tab) 1 tab PO Q4H PRN PRN Reason: Pain, moderate (4-7) Stop: 03/24/17 22:42 Last Admin: 08/11/16 23:32 Dose: 1 tab - Labs Labs: 08/13/16 06:45 labs pending - Constitutional Appears: Non-toxic, No Acute Distress - Head Exam Head Exam: NORMAL INSPECTION - Eye Exam Eye Exam: Normal appearance - ENT Exam ENT Exam: Mucous Membranes Moist - Respiratory Exam Respiratory Exam: NORMAL BREATHING PATTERN. absent: Accessory Muscle Use, Respiratory Distress - GI/Abdominal Exam GI & Abdominal Exam: Soft. absent: Distended, Guarding, Rebound - Neurological Exam Neurological Exam: Alert, Awake, Oriented x3 - Psychiatric Exam Psychiatric exam: Normal Affect, Normal Mood - Skin Skin Exam: Dry, Intact, Normal Color, Warm Assessment and Plan - Assessment and Plan (Free Text) Assessment: 71 y/o M presents w/ RUQ pain likely 2/2 cholelithiasis/biliary colic - OR cancelled - per Cards pt moderate risk for surgery; limit IVF - cont Abx - Pain control, anti-emetic, anti-pyretics PRN Pt discussed w/ Dr. Artem Hoskins DO PGY1
[2016-08-13 08:15] LABS: ALB/GLOB RATIO 0.9 (1.1-1.8); ALKALINE PHOSPHATASE 212 U/L (38-133); ALT/SGPT 79 U/L (7-56); AST/SGOT 120 U/L (15-59); BILIRUBIN,TOTAL 1.2 mg/dL (0.2-1.3); BLOOD UREA NITROGEN 10 mg/dL (7-21); CARBON DIOXIDE 30 mmol/L (21-33); CHLORIDE 103 mmol/L (98-107); GFR AFRICAN-AMERICAN > 60; GLUCOSE,RANDOM 79 mg/dL (70-110); POTASSIUM 4.8 mmol/L (3.6-5.0); SODIUM 140 mmol/L (132-148); TOTAL PROTEIN 6.4 g/dL (5.8-8.3)
[2016-08-13] MEDS ORDERED: Sodium Chloride 0.9% 1,000 ML IV SCH ×2 (08:30→23:22)
--- NOTE | 2016-08-13 08:30 | CP.PCM.PN ---
Subjective - Date & Time of Evaluation Date of Evaluation: 08/13/16 Time of Evaluation: 08:00 - Subjective Subjective: Stable on 5R. + abd. sxs. No CP or SOB. Surgery has been cancelled today. V/S noted. PE Lungs: clear Cor.: S1S2 Abd.: soft Ext.: no edema Neuro.: alert Objective - Vital Signs/Intake and Output Vital Signs (last 24 hours): Temp Pulse Resp BP Pulse Ox 98.1 F 63 20 128/76 98 08/12/16 18:50 08/12/16 18:50 08/12/16 18:50 08/12/16 18:50 08/12/16 18:50 Intake and Output: 08/13/16 08/13/16 06:59 18:59 Intake Total 0 Balance 0 - Medications Medications: Current Medications Acetaminophen (Tylenol 325mg Tab) 650 mg PO Q6H PRN PRN Reason: Fever >100.4 F Amiodarone HCl (Cordarone) 200 mg PO BID [facility] Last Admin: 08/12/16 10:10 Dose: 200 mg Carvedilol (Coreg) 25 mg PO BID [facility] Last Admin: 08/12/16 10:10 Dose: 25 mg Digoxin (Lanoxin) 0.125 mg PO 1400 [facility] Last Admin: 08/12/16 12:59 Dose: 0.125 mg Enoxaparin Sodium (Lovenox) 60 mg SC Q12H [facility] PRN Reason: Protocol Last Admin: 08/12/16 10:13 Dose: 60 mg Sodium Chloride (Sodium Chloride 0.9%) 1,000 mls @ 100 mls/hr IV .Q10H [facility] Ketorolac Tromethamine (Toradol) 5 mg IVP Q6 PRN PRN Reason: Pain, moderate (4-7) Last Admin: 08/11/16 20:59 Dose: 5 mg Losartan Potassium (Cozaar) 50 mg PO DAILY [facility] Last Admin: 08/12/16 10:10 Dose: 50 mg Nortriptyline HCl (Pamelor) 25 mg PO HS [facility] Last Admin: 08/12/16 21:56 Dose: 25 mg Ondansetron HCl (Zofran Inj) 4 mg IVP Q6H PRN PRN Reason: Nausea/Vomiting Oxycodone/Acetaminophen (Percocet 5/325 Mg Tab) 1 tab PO Q4H PRN PRN Reason: Pain, moderate (4-7) Stop: 08/14/16 22:42 Last Admin: 08/11/16 23:32 Dose: 1 tab - Labs Labs: 08/13/16 06:45 08/13/16 06:45 PT 13.5 Seconds (9.9-11.8) H 08/13/16 06:45 INR 1.25 (0.93-1.08) H 08/13/16 06:45 APTT 32.5 Seconds (23.7-30.8) H 08/13/16 06:45 Assessment and Plan - Assessment and Plan (Free Text) Plan: Assessment: Abd. pain/acute cholecystitis CAD/CABG/PCIs Severe LVD, EF ~ 15% ICD COPD Plan: As per GI and surgery and Dr. Dong.. Moderate/severe cardiac risk. Cautious with IVF, high risk for CHF Will follow.
--- NOTE | 2016-08-13 08:58 | PN ---
DATE: 08/13/2016 SUBJECTIVE: The patient has no complaints of any chest pain, no shortness of breath, no headaches. PHYSICAL EXAMINATION: VITAL SIGNS: Temperature is 98.1, pulse of 63, blood pressure is 128/76, respirations 20. GENERAL: The patient comfortable, in no acute distress. HEENT: Anicteric sclerae. Moist mucosa. NECK: No JVD or adenopathy. CARDIAC: S1/S2. No murmurs. No rubs. Regular. RESPIRATORY: Clear to auscultation bilaterally. No wheezes, rales, or rhonchi. Good air entry. ABDOMEN: Bowel sounds are positive, soft, nontender, and nondistended. EXTREMITIES: No edema. Has 1+ pulses. LABORATORIES: White count of 9.6, hemoglobin 13.6. Creatinine 0.8. ASSESSMENT: 1. Abdominal pain. 2. Hepatosplenomegaly. 3. Liver lesions, cysts/hemangioma. 4. Weight loss. 5. Coronary artery disease, status post coronary artery bypass graft. 6. Cholelithiasis. 7. Atrial fibrillation, on anticoagulation. PLAN: The patient had an endoscopy yesterday. I did speak to Dr. Smith. The patient was found t o have esophagitis, antral erosion. He is being followed by Dr. Montero as well from cardiology. T he patient is getting further evaluation by surgery for possible cholecystectomy. He has an enlarged spleen and liver. I am not sure of the etiology. I will get evaluation by . The patient is o n Lovenox for anticoagulation. He is on IV fluids. The patient is on losartan for his hypertension. The patient is on Rocephin for antibiotics. I did speak to Dr. Smith yesterday. The patient is currently n.p.o. Silvino Dong MD cc: [id number] TT: 08/13/2016 08:58:12 Confirmation # [id number] Dictation # [id number] en
[2016-08-13] MEDS: Digoxin 125 mcg (0.125 mg) Tab PO SCH (15:29)
[2016-08-13] MEDS: Oxycodone/Acetaminophen 5/325 mg Tab PO PRN ×2 (15:30→22:43)
[2016-08-13] MEDS ORDERED: Enoxaparin 40 mg Syringe SC SCH (23:30)
[2016-08-14 07:47] LABS: ADD MANUAL DIFF? NO
[2016-08-14 07:50] LABS: BASO # 0.02 K/mm3 (0.0-2.0); BASO % 0.2 % (0.0-3.0); EOS # 0.5 (0.0-0.7); EOS % 4.2 % (1.5-5.0); GRAN # 9.14 (1.4-6.5); HEMATOCRIT 43.3 % (42.0-52.0); LYMPH # 1.1 (1.2-3.4); LYMPH % 9.4 % (22.0-35.0); MEAN CORPUSCULAR HEMOGLOBIN 31.8 pg (25.0-35.0); MEAN CORPUSCULAR HGB CONC 33.5 g/dl (31.0-37.0); MEAN PLATELET VOLUME 11.9 fl (7.0-11.0); MONO # 0.6 (0.1-0.6); MONO % 5.2 % (1.0-6.0); PLATELET COUNT 191 10^3/uL (120.0-450.0); RED CELL DISTRIBUTION WIDTH 15.1 % (11.5-14.5); WHITE BLOOD COUNT 11.3 10^3/ul (4.5-11.0)
--- NOTE | 2016-08-14 08:03 | CP.PCM.PN ---
Subjective - Date & Time of Evaluation Date of Evaluation: 08/14/16 Time of Evaluation: 08:00 - Subjective Subjective: Stable on 5R. + abd. pain, mild today. A liver bx. is planned. V/S noted. PE Lungs: clear Cor.: S1S2 Abd.: soft Ext.: no edema Neuro.: alert Labs noted Objective - Vital Signs/Intake and Output Vital Signs (last 24 hours): Temp Pulse Resp BP Pulse Ox 97.5 F L 60 18 113/67 94 L 08/13/16 16:00 08/13/16 17:22 08/13/16 16:00 08/13/16 17:22 08/13/16 16:00 Intake and Output: 08/14/16 08/14/16 06:59 18:59 Intake Total 1480 Balance 1480 - Medications Medications: Current Medications Acetaminophen (Tylenol 325mg Tab) 650 mg PO Q6H PRN PRN Reason: Fever >100.4 F Amiodarone HCl (Cordarone) 200 mg PO BID [facility] Last Admin: 08/13/16 17:21 Dose: 200 mg Carvedilol (Coreg) 25 mg PO BID [facility] Last Admin: 08/13/16 17:22 Dose: 25 mg Digoxin (Lanoxin) 0.125 mg PO 1400 [facility] Last Admin: 08/13/16 15:29 Dose: 0.125 mg Enoxaparin Sodium (Lovenox) 40 mg SC Q12H [facility] PRN Reason: Protocol Last Admin: 08/14/16 03:31 Dose: Not Given Famotidine (Pepcid) 20 mg PO DAILY [facility] Sodium Chloride (Sodium Chloride 0.9%) 1,000 mls @ 75 mls/hr IV .[id number] [facility] Losartan Potassium (Cozaar) 50 mg PO DAILY [facility] Last Admin: 08/13/16 09:02 Dose: 50 mg Nortriptyline HCl (Pamelor) 25 mg PO HS [facility] Last Admin: 08/13/16 21:33 Dose: 25 mg Ondansetron HCl (Zofran Inj) 4 mg IVP Q6H PRN PRN Reason: Nausea/Vomiting Oxycodone/Acetaminophen (Percocet 5/325 Mg Tab) 1 tab PO Q4H PRN PRN Reason: Pain, moderate (4-7) Stop: 08/14/16 22:42 Last Admin: 08/13/16 22:43 Dose: 1 tab - Labs Labs: 08/13/16 06:45 08/13/16 06:45 PT 13.5 Seconds (9.9-11.8) H 08/13/16 06:45 INR 1.25 (0.93-1.08) H 08/13/16 06:45 APTT 32.5 Seconds (23.7-30.8) H 08/13/16 06:45 Assessment and Plan - Assessment and Plan (Free Text) Plan: Assessment: Abd. pain/gall stones CAD/CABG/PCIs Severe LVD, EF ~ 15% ICD COPD Plan: As per GI and surgery and Dr. Dong. Moderate/severe cardiac risk. Cautious with IVF, high risk for CHF Patient on amiodarone: related to elevated liver enzymes? Will follow.
--- NOTE | 2016-08-14 08:31 | CON ---
DATE: 08/13/2016 This is the patient's hospital consult on the medical floor. For Dr. Mendez. CHIEF COMPLAINT: Abdominal pain. HISTORY OF PRESENT ILLNESS: The patient is a 71-year-old male, seen sitting up in bed with his daugh ters at the bedside, admitted via the Emergency Room for evaluation of progressive abdominal pain to the mid epigastrium for approximately 3-4 months with weight loss, approximately 10 pounds over that period of time. He is presently resting comfortably, in no acute distress. ALLERGIES: No known allergies. MEDICATIONS: The patient has been taking medications until he ran out of his medications, he reports , with his medications to include Eliquis, losartan, Coreg, amiodarone, digoxin. 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 FAMILY HISTORY AND SOCIAL HISTORY: The patient was a former smoker who quit. Denies significant alc ohol use. Otherwise, noncontributory. Two daughters at the bedside. REVIEW OF SYSTEMS: Essentially negative to questioning except as above. OBJECTIVE AND PHYSICAL EXAMINATION: VITAL SIGNS: Temperature 97.5, pulse 60, respirations 18, blood pressure 113/67, pulse ox 94%. HEENT: Unremarkable. NECK: Supple. HEART: Regular rate with a pacer and defibrillator. LUNGS: Clear. ABDOMEN: Soft with minimal tenderness to gentle palpation of midepigastrium. EXTREMITIES: No edema. SKIN: Warm, dry and clear. NEUROLOGIC: Awake, alert and oriented with decreased hearing. SKIN: Otherwise, warm, dry and clear. LABORATORIES: Were done, white blood cell count of 11.7, hemoglobin of 14.5, hematocrit of 43.9, brina telet count of 214,000 with a chem metabolic panel within normal limits except for an AST of 120, ALT of 79, alkaline phosphatase of 212, amylase 55, lipase 238. Otherwise, normal chem metabolic panel. T-bili of 1.2. His INR was 1.25. The patient did have a chest x-ray done on 08/10, which was read as no active disease. He had an EKG done on 08/10, which was read as AV sequential dual chamber electronic pacer. Other testing for this patient included an ultrasound of his abdomen done on 08/10/2016, which was arielle d as gallbladder sludge, gallstones without definite ultrasound of his acute cholecystitis, mild sple nomegaly measuring 13.3 cm, trace ascites of the upper abdomen, mild echogenic liver suggestive of fa tty liver. His CT scan of the abdomen and pelvis was done on 08/10. It was read as moderate emphysem atous changes predominately to the upper lobes. No CT evidence of acute pathology of suspicious mass in the lungs, cardiomegaly, mild to moderately enlarged main pulmonary artery, interval appearance o f small ascites in the abdomen and pelvis since previous exam, distended gallbladder, it contains gal lstones without definite CT evidence of acute cholecystitis, colonic diverticulosis without evidence of diverticulitis, mild splenomegaly, mildly enlarged retroperitoneal and para-aortic lymph nodes. H e had a nuclear scan done on 08/11, HIDA scan, which was read as normal hepatobiliary scan, cystic maryann t is patent. The patient then had endoscopy done by Dr. Smith. EGD showed antral erosions, esoph agitis, rule out Wisdom's esophagus. ASSESSMENT: Abdominal pain, peptic ulcers, antral erosions, esophagitis, rule out Wisdom's esophagu s, severe cardiomyopathy, status post pacer/defibrillator with poor ejection fraction as per patient, splenomegaly, emphysema, abnormal liver function tests, retroperitoneal and para-aortic lymph node e nlargement, ascites. After conversation with Dr. Mendez, we will continue the present medical regimen as per Dr. Dong , Dr. Smith, Dr. Mcgill and Dr. Crum with continuation of his present medical regimen with Love nox continuing versus Eliquis in the interim with analgesics given for his pain. We will discontinue Toradol as the patient has peptic ulcer disease, with workup to be done including flow cytometric an alysis, serum protein electrophoresis, serum immunoelectrophoresis, smear review, with consult with Faye Bush regarding possible tissue biopsy evaluation with consideration of gastrointestinal pro phylaxis for his antral erosions and esophagitis with consideration for an H2 aron as a proton pum p inhibitor may not be indicated due to his cardiology issues. The patient is currently n.p.o. His diet was advanced to a liquid diet. In the interim, he continues his medications. However, his IV i s normal saline at 40 mL an hour. We will increase this to 75 mL until his clear liquids are tolerat ed and add an H2 aron in the interim. We will monitor clinically and with labs. Titi Aguilar MD cc: [id number] TT: 08/14/2016 08:30:27 Confirmation # [id number] Dictation # [id number] en
[2016-08-14 08:38] LABS: ALB/GLOB RATIO 0.9 (1.1-1.8); ALKALINE PHOSPHATASE 262 U/L (38-133); ALT/SGPT 109 U/L (7-56); AST/SGOT 176 U/L (15-59); BILIRUBIN,TOTAL 1.2 mg/dL (0.2-1.3); BLOOD UREA NITROGEN 12 mg/dL (7-21); CALCIUM 8.7 mg/dL (8.4-10.5); CARBON DIOXIDE 33 mmol/L (21-33); CHLORIDE 102 mmol/L (98-107); GFR AFRICAN-AMERICAN > 60; GLUCOSE,RANDOM 83 mg/dL (70-110); POTASSIUM 4.5 mmol/L (3.6-5.0); SODIUM 140 mmol/L (132-148); TOTAL PROTEIN 6.3 g/dL (5.8-8.3)
--- NOTE | 2016-08-14 09:11 | CP.PCM.PN ---
Subjective - Date & Time of Evaluation Date of Evaluation: 08/14/16 Time of Evaluation: 06:15 - Subjective Subjective: General Surgery Dr. Mcgill Pt S&E @bedside. NAEO. some RUQ pain w/ CLD though improved since admission. denies N/V, F/C. Objective - Vital Signs/Intake and Output Vital Signs (last 24 hours): Temp Pulse Resp BP Pulse Ox 97.5 F L 60 18 113/67 94 L 08/13/16 16:00 08/13/16 17:22 08/13/16 16:00 08/13/16 17:22 08/13/16 16:00 Intake and Output: 08/14/16 08/14/16 06:59 18:59 Intake Total 1480 Balance 1480 - Medications Medications: Current Medications Acetaminophen (Tylenol 325mg Tab) 650 mg PO Q6H PRN PRN Reason: Fever >100.4 F Amiodarone HCl (Cordarone) 200 mg PO BID [facility] Last Admin: 08/13/16 17:21 Dose: 200 mg Carvedilol (Coreg) 25 mg PO BID [facility] Last Admin: 08/13/16 17:22 Dose: 25 mg Digoxin (Lanoxin) 0.125 mg PO 1400 [facility] Last Admin: 08/13/16 15:29 Dose: 0.125 mg Enoxaparin Sodium (Lovenox) 40 mg SC Q12H [facility] PRN Reason: Protocol Last Admin: 08/14/16 03:31 Dose: Not Given Famotidine (Pepcid) 20 mg PO DAILY [facility] Sodium Chloride (Sodium Chloride 0.9%) 1,000 mls @ 75 mls/hr IV .[id number] [facility] Losartan Potassium (Cozaar) 50 mg PO DAILY [facility] Last Admin: 08/13/16 09:02 Dose: 50 mg Nortriptyline HCl (Pamelor) 25 mg PO HS [facility] Last Admin: 08/13/16 21:33 Dose: 25 mg Ondansetron HCl (Zofran Inj) 4 mg IVP Q6H PRN PRN Reason: Nausea/Vomiting Oxycodone/Acetaminophen (Percocet 5/325 Mg Tab) 1 tab PO Q4H PRN PRN Reason: Pain, moderate (4-7) Stop: 08/14/16 22:42 Last Admin: 08/13/16 22:43 Dose: 1 tab - Labs Labs: 08/14/16 07:30 - Constitutional Appears: Non-toxic, No Acute Distress - Head Exam Head Exam: NORMAL INSPECTION - Eye Exam Eye Exam: Normal appearance - ENT Exam ENT Exam: Mucous Membranes Moist - Respiratory Exam Respiratory Exam: NORMAL BREATHING PATTERN. absent: Accessory Muscle Use, Respiratory Distress - GI/Abdominal Exam GI & Abdominal Exam: Soft, Tenderness (minimal TTP RUQ). absent: Distended, Guarding, Rebound - Neurological Exam Neurological Exam: Alert, Awake, Oriented x3 - Psychiatric Exam Psychiatric exam: Normal Affect, Normal Mood - Skin Skin Exam: Dry, Intact, Normal Color, Warm Assessment and Plan - Assessment and Plan (Free Text) Assessment: 71 y/o M presents w/ RUQ pain likely 2/2 cholelithiasis/biliary colic - per Cards, pt moderate/severe risk for surgery; limit IVF - cont Abx - Pain control, anti-emetic, anti-pyretics PRN - f/u GI recs Pt discussed w/ Dr. Artem Hoskins DO PGY1
--- NOTE | 2016-08-14 09:40 | PN ---
DATE: 08/14/2016 SUBJECTIVE: The patient has no complaints of any chest pain, no shortness of breath, no headaches. PHYSICAL EXAMINATION: VITAL SIGNS: Temperature is 97.5, pulse is 60, blood pressure is 113/67, respirations 18. GENERAL: The patient comfortable, in no acute distress. HEENT: Anicteric sclerae. Moist mucosa. NECK: No JVD or adenopathy. CARDIAC: S1/S2. No murmurs. No rubs. Regular. RESPIRATORY: Clear to auscultation bilaterally. No wheezes, rales, or rhonchi. Good air entry. ABDOMEN: Bowel sounds are positive, soft, nontender, and nondistended. EXTREMITIES: No edema. Has 1+ pulses. LABORATORY DATA: White count 11.7, hemoglobin 14.5. Creatinine 0.8. ASSESSMENT: 1. Abdominal pain. 2. Hepatosplenomegaly. 3. Liver lesions, secondary to cyst/hemangioma. 4. Weight loss. 5. Coronary artery disease. 6. Cholelithiasis. 7. Atrial fibrillation, on anticoagulation. 8. Status post coronary artery bypass graft. PLAN: I did speak to Dr. Mendez yesterday about the patient's history. He is seeing the patient fo r hepatosplenomegaly. The patient is on amiodarone. He is going to continue with his losartan. He is on Lovenox, dosage was changed by Dr. Aguilar. The patient is on Pamelor. He is going to con tinue. He is on IV fluids. The patient is on oxygen. He is getting a liquid diet. He is being fol lowed by surgery as well. His liver functions and alkaline phosphatase remain elevated. Silvino Dong MD cc: [id number] TT: 08/14/2016 09:39:20 Confirmation # [id number] Dictation # [id number] en
[2016-08-14] MEDS ORDERED: Midazolam 2 MG/2 ML VIAL ONE (11:50)
--- NOTE | 2016-08-14 13:38 | CT ---
PROCEDURE: CT-guided bone marrow aspiration and biopsy HISTORY: Hepatic splenomegaly. Lymphadenopathy. Needs bone marrow evaluation. PHYSICIAN(S): Burton Bush MD. TECHNIQUE: The relative risks and indications of the procedure were explained to the patient and his daughter and consent obtained. The patient was placed prone on the CT scanner and preliminary images through the pelvis obtained. Conscious sedation and monitoring were provided throughout the procedure by a nurse. The left posterior superior iliac spine was selected for biopsy.. The areas prepped and draped in usual sterile fashion. 1% Xylocaine was used to anesthetize the skin and soft tissues. An Arrow bone biopsy needle was advanced through the cortex posteriorly and a bone marrow aspiration performed. Next a 4 cm core biopsy was performed with the drill attachment The patient tolerated the procedure well. IMPRESSION: 1. CT-guided bone marrow aspiration and biopsy as described above.
--- NOTE | 2016-08-14 15:11 | PN ---
DATE: 08/14/2016 Hospital visit on the medical floor. SUBJECTIVE: The patient is a 71-year-old male seen in the CT scan Department with his daughter, mayo chung bone marrow biopsy by Dr. Mendez as the patient was evaluated by Dr. Burton Bush with his retro peritoneal changes, unable to be biopsied as per Dr. Bush. He is otherwise resting comfortably, rep orting he has continued discomfort to his midepigastrium, 4/10 pain there with an H2 aron started earlier today. He is otherwise known to have had evaluation for possible cholecystectomy, however th is was on hold, with antral erosions and esophagitis diagnosed on EGD. He also has significant cardi ac issues with a pacer defibrillator with poor ejection fraction with splenomegaly recently noted and retroperitoneal enlargement of his nodes with minimal amount of ascites. He is otherwise for bone marrow biopsy today. PHYSICAL EXAMINATION: VITAL SIGNS: Temperature 97.9, pulse 60, respirations 16, blood pressure 127/65, pulse ox 99%. HEENT: Unremarkable. NECK: Supple. HEART: Regular rate, occasional ectopic beat with pacer defibrillator noted. LUNGS: Clear. ABDOMEN: Minimal tenderness to gentle palpation in the mid epigastrium. SKIN: Warm, dry and clear. NEUROLOGIC: Awake, alert, and oriented x 3 with decreased hearing. LABORATORY DATA: The patient's labs were done. White blood cell count 11.3, hemoglobin 14.5, hemato crit 43.3, platelet count of 191,000 with a chem metabolic panel within normal range except for abnor mal liver function tests with an AST of 176, ALT of 109, alkaline phosphatase of 262. His INR was done yesterday at 1.25, as the patient was on Eliquis prior to holding it in favor of Fabricio enox. ASSESSMENT AND PLAN: Abdominal pain, esophagitis, gastric erosions, abnormal LFTs, mild splenomegaly , weight loss, severe arteriosclerotic cardiovascular disease with pacer defibrillator, status post c oronary artery bypass graft. With this, the patient's Lovenox was restarted after being held due to possible procedure. With this, the patient also had other testing including flow cytometric analysis, smear review with o ther testing pending. He will also have his bone marrow biopsy pending as per Dr. Mendez's recommen dations with famotidine begun with consideration for PPI if not contraindicated due to his amiodarone and other cardiac meds. With this, the patient's labs will be monitored and he will be monitored cl inically as indicated. Titi Aguilar MD cc: [id number] TT: 08/14/2016 15:10:18 Confirmation # [id number] Dictation # [id number] rn
[2016-08-14] MEDS: Enoxaparin 40 mg Syringe SC SCH (15:53)
[2016-08-14] MEDS: Digoxin 125 mcg (0.125 mg) Tab PO SCH (15:54)
[2016-08-14] MEDS: Oxycodone/Acetaminophen 5/325 mg Tab PO PRN (22:07)
[2016-08-15 03:50] LABS: TOTAL PROTEIN, SERUM 5.7 g/dL (6.1-8.1)
[2016-08-15] MEDS: Enoxaparin 40 mg Syringe SC SCH ×2 (04:43→16:00)
[2016-08-15 08:06] LABS: ADD MANUAL DIFF? NO
[2016-08-15 08:33] LABS: ALB/GLOB RATIO 0.9 (1.1-1.8); ALKALINE PHOSPHATASE 225 U/L (38-133); ALT/SGPT 88 U/L (7-56); AST/SGOT 131 U/L (15-59); BILIRUBIN,TOTAL 1.1 mg/dL (0.2-1.3); BLOOD UREA NITROGEN 10 mg/dL (7-21); CALCIUM 8.6 mg/dL (8.4-10.5); CARBON DIOXIDE 32 mmol/L (21-33); CHLORIDE 100 mmol/L (95-110); GFR AFRICAN-AMERICAN > 60; GLUCOSE,RANDOM 78 mg/dL (70-110); POTASSIUM 4.3 mmol/L (3.6-5.0); SODIUM 137 mmol/L (132-148); TOTAL PROTEIN 5.6 g/dL (5.8-8.3)
[2016-08-15 08:41] LABS: BASO # 0.02 K/mm3 (0.0-2.0); BASO % 0.2 % (0.0-3.0); EOS # 0.4 (0.0-0.7); EOS % 3.6 % (1.5-5.0); GRAN # 8.21 (1.4-6.5); GRAN % 81.3 % (50.0-68.0); LYMPH % 9.5 % (22.0-35.0); MEAN CELL VOLUME 94.9 fL (80.0-105.0); MEAN CORPUSCULAR HEMOGLOBIN 32.2 pg (25.0-35.0); MEAN CORPUSCULAR HGB CONC 33.9 g/dl (31.0-37.0); MEAN PLATELET VOLUME 12.7 fl (7.0-11.0); MONO # 0.6 (0.1-0.6); MONO % 5.4 % (1.0-6.0); PLATELET COUNT 175 10^3/uL (120.0-450.0); RED CELL DISTRIBUTION WIDTH 15.4 % (11.5-14.5); WHITE BLOOD COUNT 10.1 10^3/ul (4.5-11.0)
--- NOTE | 2016-08-15 09:38 | PN ---
DATE: 08/15/2016 SUBJECTIVE: The patient is seen lying in bed on 5R. He is anxious to go home. A bone marrow biopsy was performed yesterday. Results are pending. His abdominal pain is improved, but persists. CURRENT MEDICATIONS: Include amiodarone 200 mg b.i.d., carvedilol 25 mg b.i.d., Cozaar 50 mg daily, digoxin 0.125 mg daily, subcutaneous Lovenox, nortriptyline 25 mg at bedtime, Pepcid 20 mg daily. OBJECTIVE: GENERAL: He is a thin, middle-aged man. He is comfortable at rest. VITAL SIGNS: Blood pressure is 130/90 with a pulse of 60, respirations are 16. He is afebrile. HEENT: No JVD. CHEST: Clear to auscultation and percussion. HEART: Soft tones noted with a systolic murmur at the left sternal border. ABDOMEN: Soft with mild diffuse tenderness. Bowel sounds are present. EXTREMITIES: No edema. DIAGNOSTIC DATA: Potassium 4.3, BUN and creatinine 10 and 0.7. White count, 10.1, hemoglobin and he matocrit 13.9 and 41.0, platelet count of 175,000. AST and ALT 131 and 88, with alkaline phosphatase of 225. IMPRESSION: 1. Abdominal pain, etiology unclear. 2. Coronary artery disease, status post remote percutaneous coronary intervention and bypass surgery , clinically stable. 3. Severe left ventricular dysfunction. 4. History of ventricular tachycardia status post implantable cardioverter-defibrillator implant. 5. History of chronic obstructive pulmonary disease. 6. Status post bone marrow biopsy, results pending. RECOMMENDATIONS: 1. His current cardiac medications will be continued for now. If his liver enzymes rise further, am iodarone may need to be discontinued, although he has had episodes of ventricular tachycardia requiri ng frequent cardioversion when on a lower dose of amiodarone. 2. We await the results of his bone marrow biopsy. 3. Any surgical intervention poses at least moderate risk given his severe LV dysfunction; however, he does appear stable and optimized to proceed if needed. We will continue to follow and make furthe r recommendations as appropriate. Ankit Montero MD cc: [id number] TT: 08/15/2016 09:37:37 Confirmation # [id number] Dictation # [id number] jn
--- NOTE | 2016-08-15 11:53 | CP.PCM.PN ---
Subjective - Date & Time of Evaluation Date of Evaluation: 08/15/16 Time of Evaluation: 11:49 - Subjective Subjective: SURGERY NOTE FOR DR. BRINK 71M seen and examined at bedside. Complains to have same pain, denies nausea, vomiting, diarrhea. Objective - Vital Signs/Intake and Output Vital Signs (last 24 hours): Temp Pulse Resp BP Pulse Ox 98.5 F 60 20 138/92 H 94 L 08/15/16 08:00 08/15/16 10:16 08/15/16 08:00 08/15/16 10:16 08/15/16 08:00 Intake and Output: 08/15/16 08/15/16 06:59 18:59 Intake Total 600 Balance 600 - Medications Medications: Current Medications Acetaminophen (Tylenol 325mg Tab) 650 mg PO Q6H PRN PRN Reason: Fever >100.4 F Amiodarone HCl (Cordarone) 200 mg PO BID [facility] Last Admin: 08/15/16 10:15 Dose: 200 mg Carvedilol (Coreg) 25 mg PO BID [facility] Last Admin: 08/15/16 10:16 Dose: 25 mg Digoxin (Lanoxin) 0.125 mg PO 1400 [facility] Last Admin: 08/14/16 15:54 Dose: 0.125 mg Enoxaparin Sodium (Lovenox) 40 mg SC Q12H [facility] PRN Reason: Protocol Last Admin: 08/15/16 04:43 Dose: 40 mg Famotidine (Pepcid) 20 mg PO DAILY [facility] Last Admin: 08/15/16 10:15 Dose: 20 mg Losartan Potassium (Cozaar) 50 mg PO DAILY [facility] Last Admin: 08/15/16 10:16 Dose: 50 mg Nortriptyline HCl (Pamelor) 25 mg PO HS [facility] Last Admin: 08/14/16 22:07 Dose: 25 mg Ondansetron HCl (Zofran Inj) 4 mg IVP Q6H PRN PRN Reason: Nausea/Vomiting Oxycodone/Acetaminophen (Percocet 5/325 Mg Tab) 1 tab PO Q4H PRN PRN Reason: Pain, moderate (4-7) Stop: 08/17/16 22:45 - Labs Labs: 08/15/16 08:03 08/15/16 08:03 PT 13.5 Seconds (9.9-11.8) H 08/13/16 06:45 INR 1.25 (0.93-1.08) H 08/13/16 06:45 APTT 32.5 Seconds (23.7-30.8) H 08/13/16 06:45 - Constitutional Appears: Non-toxic, No Acute Distress - Head Exam Head Exam: ATRAUMATIC - Respiratory Exam Respiratory Exam: Clear to Ausculation Bilateral, NORMAL BREATHING PATTERN - Cardiovascular Exam Cardiovascular Exam: REGULAR RHYTHM, +S1, +S2 - GI/Abdominal Exam GI & Abdominal Exam: Soft, Tenderness (RUQ, positive murphys sign). absent: Distended, Firm, Guarding, Rigid, Rebound Additional comments: liver palpable 4 finger breaths below ribs - Neurological Exam Neurological Exam: Alert, Awake - Skin Skin Exam: Dry, Intact, Normal Color, Warm Assessment and Plan - Assessment and Plan (Free Text) Assessment: 71 y/o M presents w/ RUQ pain likely 2/2 cholelithiasis/biliary colic - per Cards, pt moderate/severe risk for surgery; limit IVF - cont Abx - Pain control, anti-emetic, anti-pyretics PRN - f/u GI recs - no surgery at this time. Further recs discuss with Dr. Artem Ellis, PGY1
[2016-08-15] MEDS: Oxycodone/Acetaminophen 5/325 mg Tab PO PRN (12:22)
[2016-08-15] MEDS ORDERED: Morphine 2 mg/ml ISec IVP PRN (12:56)
[2016-08-15] MEDS ORDERED: Potassium Chl 10 mEq in D5-1/2 1,000 ML IV SCH (13:30)
--- NOTE | 2016-08-15 14:16 | PN ---
DATE: 08/15/2016 This is the patient's hospital visit on the medical floor. For Dr. Mendez. SUBJECTIVE: The patient is a 71-year-old male with abdominal pain, reporting it has now worsened wit h the pain in the mid midepigastrium, radiation minimally to the right side, 4/10 going up to 8/10, a t times with Percocet helping his pain. He notices it more after he has his liquid diet. With this, he was recently scoped and evaluated by surgical team for possible gallbladder issues with the patie nt known to have significant cardiac problems with poor ejection fraction, on amiodarone, pacer and d efibrillator. With this, he was evaluated for bone marrow biopsy done with the patient now reporting that the discomfort is subsiding after Percocet was given. OBJECTIVE PHYSICAL EXAMINATION: VITAL SIGNS: Temperature 98.5, pulse 60, respirations 20, blood pressure 138/92 and pulse ox 94%. HEENT: Unremarkable. NECK: Supple. HEART: Regular rate, I-II/ systolic ejection murmur noted. LUNGS: Clear. ABDOMEN: Soft. Minimal tenderness to gentle palpation in the mid epigastrium. EXTREMITIES: No edema. SKIN: Warm, dry and clear. NEUROLOGIC: Awake, alert, and oriented x 3 with decreased hearing. LABORATORY DATA: The patient's labs were done. White blood cell count of 10.1, hemoglobin of 13.9, hematocrit 41.0, platelet count of 175,000 with a chem metabolic panel showing an AST of 131, ALT of 88, alk phos of 225 with a T-bili of 1.1. His INR 1.25 two days ago. ASSESSMENT: Abdominal pain, esophagitis, gastric erosions, abnormal liver function tests, mild splen omegaly, weight loss, severe atherosclerotic cardiovascular disease with pacer, defibrillator, status post coronary artery bypass graft. PLAN: After conversation with Dr. Montero and Dr. Mendez, we will continue his present medical reg imen; however, we will discontinue the Pepcid in favor of Protonix and Carafate with continuation of his present medical regimen with low flow IV fluids of 40 mL an hour for 1 L with morphine sulfate 2 mg IV q. 4 hours for his severe pain. Percocet may continue for his moderate pain and his diet will be strict clear liquids. We will monitor clinically and with labs. Other testing is pending along w ith bone marrow biopsy that was sent as his retroperitoneal nodes were not amenable to biopsy as per Dr. Burton Bush. We will also, as per Dr. Burton Bush's recommendation, check an ultrasound of the a bdomen, celiac, SMA, IOANA for mesenteric ischemic changes to be ruled out. We will also continue Love nox 40 mg subQ versus Eliquis for the time being. Titi Aguilar MD cc: [id number] TT: 08/15/2016 14:15:21 Confirmation # [id number] Dictation # [id number] tn
[2016-08-15] MEDS: Digoxin 125 mcg (0.125 mg) Tab PO SCH (14:55)
[2016-08-15] MEDS: Sucralfate 1 gm/10 ml Oral Susp UD PO SCH ×2 (14:55→18:09)
--- NOTE | 2016-08-15 17:38 | PN ---
DATE: 08/15/2016 SUBJECTIVE: The patient is a 71-year-old. He states he has been losing weight. He has been having abdominal discomfort and he was told he had liver and spleen enlargement. He underwent a bone marrow biopsy, result is not available yet. PHYSICAL EXAMINATION: GENERAL: He seems to be comfortable on liquid diet. VITAL SIGNS: He is afebrile, pulse 60, respirations 20, blood pressure 130/92. LUNGS: Bilateral fair airflow, no rhonchi or crackle. HEART: S1, S2 audible. ABDOMEN: Soft, slightly distended. NEUROLOGIC: He is awake and alert, communicative, moves all extremities. EXTREMITIES: Bilateral leg, no edema. LABORATORY EXAMINATION: WBC is 10.1, hemoglobin 13.9, hematocrit 41, platelet of 175. Chemistry: S odium 137, potassium 4.3, chloride 100, CO2 32, BUN 10, creatinine 0.7, blood sugar 78, AST 131, ALT 88. Alkaline phosphatase is 225. ASSESSMENT: 1. Abdominal pain, etiology unclear, probably secondary to liver capsule distention. 2. Hepatosplenomegaly. Rule out hematological etiology, bone marrow is pending. 3. Significant weight loss. 4. Coronary artery disease, status post angioplasty. 5. Cholelithiasis. PLAN: Currently, the patient is on amiodarone because of her atrial fibrillation. He is on Coreg an d digoxin. He is getting Lovenox, an analgesic as needed. He is getting IV fluid and Protonix. He does not have any nausea. We will advance his diet to full liquids and see the response. Reevaluat e patient in a.m. Princess Lyles MD cc: [phone] TT: 08/15/2016 17:37:32 Confirmation # [id number] Dictation # [id number] ln
[2016-08-15] MEDS: Pantoprazole 40 mg EC Tab PO SCH (18:09)
[2016-08-16] MEDS: Oxycodone/Acetaminophen 5/325 mg Tab PO PRN (00:20)
[2016-08-16] MEDS: Enoxaparin 40 mg Syringe SC SCH ×2 (04:39→17:18)
--- NOTE | 2016-08-16 06:21 | CP.PCM.PN ---
Subjective - Date & Time of Evaluation Date of Evaluation: 08/16/16 Time of Evaluation: 06:19 - Subjective Subjective: SURGERY NOTE FOR DR. BRINK 71M seen and examined at bedside. CLARISSA. Patient tolerating diet, states pain is the same. Objective - Vital Signs/Intake and Output Vital Signs (last 24 hours): Temp Pulse Resp BP Pulse Ox 98.5 F 60 20 112/70 94 L 08/15/16 08:00 08/15/16 18:15 08/15/16 08:00 08/15/16 18:15 08/15/16 08:00 Intake and Output: 08/15/16 08/16/16 18:59 06:59 Intake Total 1020 Balance 1020 - Medications Medications: Current Medications Acetaminophen (Tylenol 325mg Tab) 650 mg PO Q6H PRN PRN Reason: Fever >100.4 F Amiodarone HCl (Cordarone) 200 mg PO BID [facility] Last Admin: 08/15/16 18:15 Dose: 200 mg Carvedilol (Coreg) 25 mg PO BID [facility] Last Admin: 08/15/16 18:13 Dose: 25 mg Digoxin (Lanoxin) 0.125 mg PO 1400 [facility] Last Admin: 08/15/16 14:55 Dose: 0.125 mg Enoxaparin Sodium (Lovenox) 40 mg SC Q12H [facility] PRN Reason: Protocol Last Admin: 08/16/16 04:39 Dose: 40 mg Potassium Chloride/Dextrose/Sod Cl (Potassium Chl 10 Meq In D5-1/2ns) 1,000 mls @ 40 mls/hr IV .Q24H [facility] Stop: 08/16/16 10:00 Last Admin: 08/15/16 22:29 Dose: Not Given Losartan Potassium (Cozaar) 50 mg PO DAILY [facility] Last Admin: 08/15/16 10:16 Dose: 50 mg Morphine Sulfate (Morphine) 2 mg IVP Q4H PRN PRN Reason: Pain, severe (8-10) Nortriptyline HCl (Pamelor) 25 mg PO HS [facility] Last Admin: 08/15/16 22:33 Dose: 25 mg Ondansetron HCl (Zofran Inj) 4 mg IVP Q6H PRN PRN Reason: Nausea/Vomiting Oxycodone/Acetaminophen (Percocet 5/325 Mg Tab) 1 tab PO Q4H PRN PRN Reason: Pain, moderate (4-7) Stop: 08/17/16 22:45 Last Admin: 08/16/16 00:20 Dose: 1 tab Pantoprazole Sodium (Protonix Ec Tab) 40 mg PO ACB [facility] Last Admin: 08/15/16 18:09 Dose: 40 mg Sucralfate (Carafate Oral Susp) 1 gm PO ACBD [facility] Last Admin: 08/15/16 18:09 Dose: Not Given - Labs Labs: 08/15/16 08:03 08/15/16 08:03 PT 13.5 Seconds (9.9-11.8) H 08/13/16 06:45 INR 1.25 (0.93-1.08) H 08/13/16 06:45 APTT 32.5 Seconds (23.7-30.8) H 08/13/16 06:45 - Constitutional Appears: Non-toxic, No Acute Distress - Head Exam Head Exam: ATRAUMATIC - Respiratory Exam Respiratory Exam: Clear to Ausculation Bilateral, NORMAL BREATHING PATTERN - Cardiovascular Exam Cardiovascular Exam: REGULAR RHYTHM, +S1, +S2 - GI/Abdominal Exam GI & Abdominal Exam: Soft, Tenderness (RUQ tenderness). absent: Distended, Firm , Guarding, Rigid, Rebound - Neurological Exam Neurological Exam: Alert, Awake Assessment and Plan - Assessment and Plan (Free Text) Assessment: 71 y/o M presents w/ RUQ pain likely due to Hepatomegaly as per GI. Pt has cholelithiasis also. - cont Abx - Pain control, anti-emetic, anti-pyretics PRN - GI recommendations - no surgery at this time. Further recs discuss with Dr. Artem Ellis, PGY1
[2016-08-16 07:32] LABS: ADD MANUAL DIFF? NO
[2016-08-16 07:34] LABS: BASO # 0.03 K/mm3 (0.0-2.0); BASO % 0.2 % (0.0-3.0); EOS # 0.4 (0.0-0.7); EOS % 3.2 % (1.5-5.0); GRAN # 10.49 (1.4-6.5); GRAN % 81.1 % (50.0-68.0); HEMATOCRIT 46.7 % (42.0-52.0); LYMPH # 1.4 (1.2-3.4); LYMPH % 11.1 % (22.0-35.0); MEAN CELL VOLUME 95.3 fL (80.0-105.0); MEAN CORPUSCULAR HEMOGLOBIN 32.4 pg (25.0-35.0); MEAN PLATELET VOLUME 12.1 fl (7.0-11.0); MONO # 0.6 (0.1-0.6); MONO % 4.4 % (1.0-6.0); PLATELET COUNT 243 10^3/uL (120.0-450.0); RED CELL DISTRIBUTION WIDTH 15.4 % (11.5-14.5); WHITE BLOOD COUNT 12.9 10^3/ul (4.5-11.0)
[2016-08-16 08:09] LABS: ALB/GLOB RATIO 0.9 (1.1-1.8); ALKALINE PHOSPHATASE 298 U/L (38-133); ALT/SGPT 105 U/L (7-56); AST/SGOT 156 U/L (15-59); BILIRUBIN,TOTAL 1.3 mg/dL (0.2-1.3); BLOOD UREA NITROGEN 10 mg/dL (7-21); CALCIUM 9.5 mg/dL (8.4-10.5); CARBON DIOXIDE 30 mmol/L (21-33); CHLORIDE 98 mmol/L (98-107); GFR AFRICAN-AMERICAN > 60; GLUCOSE,RANDOM 90 mg/dL (70-110); POTASSIUM 4.2 mmol/L (3.6-5.0); SODIUM 138 mmol/L (132-148); TOTAL PROTEIN 6.9 g/dL (5.8-8.3)
[2016-08-16] MEDS: Sucralfate 1 gm/10 ml Oral Susp UD PO SCH (09:56)
[2016-08-16] MEDS: Pantoprazole 40 mg EC Tab PO SCH (09:58)
--- NOTE | 2016-08-16 11:14 | PN ---
DATE: 08/16/2016 SUBJECTIVE: The patient is seen lying in bed, on telemetry. He is feeling somewhat better. His t was advanced. He now states that his pain appears localized to a fairly superficial region involvi ng his right lower anterior rib, 11th and 12th rib. He denies any nausea or vomiting. He remains af ebrile. CURRENT MEDICATIONS: Include Carafate, amiodarone 200 mg daily, carvedilol 25 mg b.i.d., Cozaar 50 m g daily, digoxin 0.125 mg daily, subcutaneous Lovenox, morphine p.r.n., Percocet, Protonix. OBJECTIVE: GENERAL: He is a middle-aged man who appears comfortable at rest. VITAL SIGNS: His blood pressure is 130/76 with a pulse of 60, respirations are 16. He is afebrile. HEENT: No JVD. CHEST: A few scattered rhonchi. HEART: PMI displaced laterally with soft tones noted. ABDOMEN: Soft with mild right upper quadrant tenderness. Bowel sounds are present. EXTREMITIES: No edema. DIAGNOSTIC DATA: Potassium 4.2, BUN and creatinine are 10 and 0.8. White count 12.9, hemoglobin and hematocrit are 15.9 and 46.7, platelet count 243,000. AST and ALT 156 and 105 with an alkaline phos phatase of 298. IMPRESSION: 1. Abdominal discomfort, exact etiology not clearly delineated. 2. Coronary artery disease, status post remote percutaneous coronary intervention and bypass surgery , clinically stable at the present time. 3. Chronic systolic heart failure with severe left ventricular dysfunction, compensated at present. 4. History of ventricular tachycardia, status post implantable cardioverter-defibrillator implant. 5. History of chronic obstructive pulmonary disease. RECOMMENDATIONS: 1. For now, his cardiac medications will be continued. 2. If his transaminases continue to rise, consideration may need to be given to withholding his amio darone therapy. 3. Bone marrow biopsy was performed on Wednesday and results are pending. We will continue to follow along and make further recommendations as appropriate. Ankit Montero MD cc: [id number] TT: 08/16/2016 11:13:24 Confirmation # [id number] Dictation # [id number] en
[2016-08-16] MEDS: Digoxin 125 mcg (0.125 mg) Tab PO SCH (14:32)
--- NOTE | 2016-08-16 15:36 | PN ---
DATE: 08/16/2016 SUBJECTIVE: The patient is a 71-year-old, seen and examined; lying in bed, still has right upper anders drant discomfort. He was started on food; he is tolerating. No nausea, vomiting, no diarrhea. PHYSICAL EXAMINATION: VITAL SIGNS: He is afebrile, pulse 60, respirations 20, blood pressure 130/75. LUNGS: Bilateral fair airflow, no rhonchi or crackle. HEART: S1, S2 audible. ABDOMEN: Slightly distended, but no palpable discomfort except right upper quadrant, no rebound or g uarding. NEUROLOGIC: He is awake and alert, communicative, ambulatory. LABORATORY EXAMINATION: WBC is 12.9, hemoglobin 15.9, hematocrit 46.7, platelet of 243. Chemistry: Sodium 138, potassium 4.2, chloride 98, CO2 30, BUN 10, creatinine 0.8, blood sugar of 90, AST 156, ALT 105, and alk phos is 298. ASSESSMENT AND PLAN: 1. Abdominal pain, etiology still undetermined. 2. Hepatosplenomegaly, probably underlying hematological disorder. 3. Significant weight loss. 4. History of coronary artery disease, status post angioplasty. 5. Cholelithiasis. 6. Tachycardic arrhythmia status post pacemaker placement. 7. Abnormal liver function tests. 8. Paroxysmal afib on amiodarone at home. He was on Eliquis that has been on hold for now, probably plan was to have a cholecystectomy done, bu t he is off of anticoagulant for now until a decision is made. Awaiting for a bone marrow biopsy to make further recommendations. Princess Lyles MD cc: [phone] TT: 08/16/2016 15:36:06 Confirmation # [id number] Dictation # [id number] an
[2016-08-16] MEDS: oxyCODONE 5 mg Immediate Release Tab PO PRN (15:46)
--- NOTE | 2016-08-16 16:35 | PN ---
DATE: 08/16/2016 ADDENDUM The patient is a 71-year-old who was complaining of right upper quadrant pain. Workup so far shows c holelithiasis. Today he had spike on his LFTs. His diet was advanced yesterday. I had a discussion with Dr. Smith. He thinks this is because of amiodarone toxicity. Also, he has cardiomyopathy a nd could be right heart failure giving him hepatic congestion. Will cut down his amiodarone to 200 q. daily if it is okay with Dr. Montero or, if his arrhythmia ca n be controlled without amiodarone, he will reach out to Dr. Montero and make that decision. His Pe rcocet has also been changed to oxycodone and to cut down on Tylenol usage. Will follow up his CMP i n the a.m. Dr. Chan also requested to see patient to rule out Jimmy-Cruz infection so serolo gy has been ordered. That will be followed later on. Princess Lyles MD cc: [phone] TT: 08/16/2016 16:34:57 Confirmation # [id number] Dictation # [id number] belle
[2016-08-16 19:00] LABS: URINE BILIRUBIN SMALL (NEGATIVE); URINE BLOOD NEGATIVE (NEGATIVE); URINE GLUCOSE (UA) NEGATIVE (NEGATIVE); URINE KETONE NEGATIVE (NEGATIVE); URINE LEUKOCYTE ESTERASE NEGATIVE Leu/uL (NEGATIVE); URINE UROBILINOGEN >=8.0 E.U./dL (<1 E.U./dL)
[2016-08-16 19:02] LABS: URINE APPEARANCE CLEAR (CLEAR); URINE COLOR YELLOW (YELLOW); URINE PROTEIN NEGATIVE mg/dL (<30 mg/dL)
--- NOTE | 2016-08-16 19:48 | PN ---
DATE: 08/16/2016 Hospital visit on the medical floor. For Dr. Mendez. SUBJECTIVE: The patient is a 71-year-old male with abdominal pain for approximately 6 months' time, getting worse the past 2 months with the pain to the midepigastrium, minimum radiation to the right s gabriela, continues to be at least 4/10 with Percocet now changed to oxycodone alone as per Dr. Smith t o eliminate the acetaminophen component. With this, the patient's diet was changed by Dr. Lyles ye with the patient reporting that the pain after eating has subsided. IV fluids were not given yesterday due to miscommunication. With the patient now seen sitting up in bed with his at the bedside, known to have significant elevations of his LFTs along with significant cardiac history of pacer with defibrillator. He reports that he feels like his liver is swollen and it is pressing agai nst his ribs. With this, the patient did have testing done, bone marrow biopsy results pending, with ultrasound of the abdomen ordered for. He reports that after eating, the pain was not as significan t this time. OBJECTIVE: PHYSICAL EXAMINATION: VITAL SIGNS: Temperature 97, pulse 62, respirations 20, blood pressure 115/70, pulse ox 95%. HEENT: Unremarkable with a hearing aid in. NECK: Supple. HEART: Regular rate, I/ systolic ejection murmur with pacer and defibrillator noted. LUNGS: Rare rhonchi. ABDOMEN: Soft. Minimal tenderness to gentle palpation of the midepigastrium with radiation to the r ight upper quadrant. EXTREMITIES: No edema. SKIN: Warm, dry and clear. NEUROLOGIC: Awake and alert. LABORATORY DATA: The patient's labs were done. White blood cell count of 12.9; hemoglobin 15.9; hem atocrit of 46.7; platelet count of 243,000 with a normal MCV of 95. His chem metabolic panel shows a n AST of 156, ALT of 105, alk phos 298, with an albumin ratio of 0.9, otherwise normal chem metabolic panel. ASSESSMENT: Abdominal pain, abnormal LFTs, history of ventricular tachycardia, ASCVD, status post pa cer and defibrillator, status post CABG, history of COPD, antral erosions, esophagitis, cardiomyopath y, splenomegaly, retroperitoneal periaortic lymph node enlargement, trace ascites. PLAN: The patient is to continue present medical regimen with Tylenol discontinued. Morphine 2 mg I V q.4 hours for severe pain will be given. Brown Sourer with Dr. Smith and Dr. Chan was jessie walker with ultrasound pending, with bone marrow biopsy results pending. The LDH will be checked tomorr ow with consideration for polycythemia vera versus Budd-Chiari syndrome versus mesenteric ischemic ch anges. He continues on his amiodarone, Coreg, Cozaar, Lanoxin, Pamelor. We will continue his oxycod one p.r.n., Zofran p.r.n., Protonix 20 mg once a day, Lovenox versus Eliquis, and lactulose 10 mg amilcar ly as per Dr. Smith with morphine for severe pain if necessary. We will monitor clinically and wi th labs. Check an INR in the morning. Titi Aguilar MD cc: [phone] TT: 08/16/2016 19:48:29 Confirmation # [id number] Dictation # [id number] mn
--- NOTE | 2016-08-16 21:20 | PN ---
DATE: 08/16/2016 SUBJECTIVE: This patient was seen and evaluated earlier. Discussed with Dr. Titi Aguilar and al so with Dr. Lyles. Later on also discussed with Dr. Chan. This 71-year-old patient was admitted with worsening of abdominal pain mainly in the epigastric area. He said it started more than 2 months ago and it progressively got worse to the point it was severe . Initially, he was found to have a gallstone thought to be related to the gallstone related pain. Subsequently, the imaging studies, followup and the clinical course were more suggestive of this bein g related to the large hepatomegaly, and the patient did have a small liver lesions present; most of them are present even on the previous imaging studies that were done in 2013. The real concern is th e large hepatomegaly and also mild splenomegaly lymphadenopathy. The patient was evaluated by the hydraulic repairer and had a bone marrow biopsy done by Dr. Burton Bush. The patient's liver enzymes continue to show a significant increase. The patient's alkaline phosphat ase has gone up from 219-298 and AST has also gone up to 156 from 132. ALT has gone up also from 88 to 105. The patient has been followed by the rn plastics, had poor LV function, . The ejection fractio n is about 15%, status post AICD placement. The patient did have a shock from the AICD about a few m onths ago and had been started on amiodarone in view of that. The likely cause for the differential diagnosis for the large hepatomegaly should include hematologic hepatic congestion to be considered. Also, part of the elevated liver enzymes to be consider would be amiodarone-induced hepatitis. I would recommend: 1. The patient to discontinue the Percocet and will start the patient on oxycodone 2. Will start the patient on a small dose of lactulose in view of this chronic pain medication to pr event bleeding or constipation. 3. Will discuss with the rn plastics regarding reducing or lowering the dose of amiodarone or disco ntinuing. 4. The patient did have an upper GI endoscopy that showed a small ulceration, has been on pantoprazo le 40 mg. Will cut down the dose to 20 mg. Also, we can discontinue the Carafate as this can also c ause constipation and the erosions are smaller and does not need to have dual therapy. 5. Gallstones; the pain symptoms are less likely related to the presentation now. 6. History of colonic polyp. Last colonoscopy 2013, . Would benefit from a colonoscopic evalu ation, but in view of the above condition, the patient needs to be optimized his acute presenta tions now before considering any elective workups. Thank you very much for allowing us to participate in the care of the patient. We will continue to c losely follow up his care and suggest further management based on the clinical course. Kiana Smith MD cc: [phone] TT: 08/16/2016 21:19:49 Confirmation # [id number] Dictation # [id number] dn
--- NOTE | 2016-08-17 00:11 | CON ---
DATE: 08/16/2016 The patient seen earlier today in 568, bed 2. CHIEF COMPLAINT: Abdominal pain times several days. HISTORY OF PRESENT ILLNESS: This is a 71-year-old male with past medical history significant for cor onary artery disease, V-tach, chronic obstructive lung disease, hypertension, who has had a history o f PCI and coronary bypass graft and defibrillator and hard of hearing and who was admitted on 08/10 w ith a diagnosis of abdominal pain, infectious disease consultation requested for rule out infectious etiology. REVIEW OF SYSTEMS: Reveals the patient had low grade fevers. No chills. Abdominal pain is diffuse and associated with nausea and discomfort. No vomiting at this point. No bright red blood per rectu m, no diarrhea or constipation. No dysuria or frequency and no headaches now, but he states he has h eadaches and he has had 25 pound weight loss in the last 3 months and he has back pain, has been sick for several months. His abdominal pain has been going on for several months, or better than 6 month s. PAST MEDICAL HISTORY: Significant for coronary artery disease, V-tach, chronic obstructive lung dise ase, hypertension, hard of hearing. PAST SURGICAL HISTORY: Significant for coronary artery bypass graft and a PCI and defibrillator. ALLERGIES: The patient has no known allergies. MEDICATIONS AT HOME: Included the patient to be on amiodarone and Pravachol, Cozaar, digoxin, Lasix, nortriptyline, Coreg and Eliquis. PHYSICAL EXAMINATION: GENERAL: The patient is in bed with a temperature of 97, blood pressure is 130/70, respiratory rate of 20, heart rate of 60. HEENT: Reveals temporal wasting. NECK: Supple. LUNGS: Have decreased breath sounds. HEART: Normal S1, S2. ABDOMEN: Soft, nontender. There is mild tenderness in the left lower quadrant. No rebound, no guar ding, no masses. LABORATORY EXAMINATION: Reveals a white count of 12,900, hemoglobin is 15.9 with an MCV of 95. The patient has platelets of 243 with 81% granulocytosis. Coagulation reveals an INR of and PT is 13, APTT is 32. Chemistries reveal a BUN of 10, creatinine of 0.8. AST is 156, ALT of 105 and alkal ine phosphatase of 298. Immunology is pending. Microbiology is not done. The patient had a CAT sca n of the abdomen and CAT scan of the chest which revealed extremely large liver and spleen and gallbl adder mildly distended and the portal vein is reported to be patent, mildly enlarged retroperitoneal and periaortic lymph nodes. The patient's CAT scan of the chest is diffuse emphysema prominent in th e upper lobes and pleural thickening, no adenopathy in the chest. The patient also had a HIDA scan w hich was negative, a normal HIDA scan. The cystic duct is patent. The patient had an upper endoscop y. The patient also had a bone marrow biopsy and esophagogastroduodenoscopy which shows antral erosi ons and esophagitis. 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 Must rule ou t polycythemia vera associated with JACK2 mutations. must rule out Budd-Chiari, hepatic vein or vein thrombosis or portal vein thrombosis. Currently, the patient is off of antibiotics. We will order b lood cultures, urine cultures, urinalysis. We will order an HIV and RPR, FTA-ABS, Jimmy-Cruz virus workup, JAK2 mutation and has been ordered by Dr. Aguilar and I doubt this to be amiodarone-rela denise. We will order abdominal Dopplers to rule out Budd-Chiari and pending initial cultures and triston p and specifically waiting for bone marrow results to rule out polycythemia very in this patient who is chronically ill with a 25-pound weight loss in the last 3 months. Will keep the patient off of an tibiotics. No acute infectious process at this time. Ismael Chan MD cc: [phone] TT: 08/17/2016 00:10:38 Confirmation # [id number] Dictation # [id number] mn
[2016-08-17] MEDS: Enoxaparin 40 mg Syringe SC SCH ×2 (05:44→18:05)
[2016-08-17 07:16] LABS: ADD MANUAL DIFF? NO
[2016-08-17 07:21] LABS: BASO # 0.02 K/mm3 (0.0-2.0); BASO % 0.2 % (0.0-3.0); EOS # 0.3 (0.0-0.7); EOS % 2.9 % (1.5-5.0); GRAN # 9.83 (1.4-6.5); HEMATOCRIT 44.5 % (42.0-52.0); LYMPH % 8.8 % (22.0-35.0); MEAN CELL VOLUME 94.7 fL (80.0-105.0); MEAN CORPUSCULAR HEMOGLOBIN 32.1 pg (25.0-35.0); MEAN CORPUSCULAR HGB CONC 33.9 g/dl (31.0-37.0); MEAN PLATELET VOLUME 12.1 fl (7.0-11.0); MONO # 0.6 (0.1-0.6); MONO % 5.1 % (1.0-6.0); PLATELET COUNT 195 10^3/uL (120.0-450.0); RED CELL DISTRIBUTION WIDTH 15.3 % (11.5-14.5); WHITE BLOOD COUNT 11.8 10^3/ul (4.5-11.0)
[2016-08-17 07:32] LABS: INR 1.26 (0.93-1.08)
--- NOTE | 2016-08-17 08:16 | PN ---
DATE: 08/17/2016 SUBJECTIVE: The patient has no complaints of any chest pain, no shortness of breath, no headaches. PHYSICAL EXAMINATION: VITAL SIGNS: Temperature 98, pulse is 62, blood pressure is 115/70, respirations 18. GENERAL: The patient comfortable, in no acute distress. HEENT: Anicteric sclerae. Moist mucosa. NECK: No JVD or adenopathy. CARDIAC: S1/S2. No murmurs. No rubs. Regular. RESPIRATORY: Clear to auscultation bilaterally. No wheezes, rales, or rhonchi. Good air entry. ABDOMEN: Bowel sounds are positive, soft, nontender, and nondistended. EXTREMITIES: No edema. Has 1+ pulses. ASSESSMENT: 1. Abdominal pain. 2. Hepatosplenomegaly. 3. Liver lesions, secondary to cyst/hemangioma. 4. Weight loss. 5. Coronary artery disease. 6. Cholelithiasis. 7. Atrial fibrillation, on anticoagulation. 8. Status post coronary artery bypass graft. PLAN: The patient had a bone marrow biopsy done. He is being followed by Dr. Mendez's group. The patient has transaminitis. It could be related to the patient's amiodarone. The amiodarone is at 20 0 mg b.i.d. Cardiology is following. The patient is on carvedilol. He is going to continue with amandeep beartan. He is receiving Lovenox for deep venous thrombosis prophylaxis. The patient is on Pamelor. He is getting an ultrasound done to rule out portal vein lesions. The patient is currently off anti biotics. He is on a heart healthy diet. Silvino Dong MD cc: [id number] TT: 08/17/2016 08:16:08 Confirmation # [id number] Dictation # [id number] en
--- NOTE | 2016-08-17 08:16 | CP.PCM.PN ---
Subjective - Date & Time of Evaluation Date of Evaluation: 08/17/16 Time of Evaluation: 08:00 - Subjective Subjective: Stable on 5R. Still DIPAK pain. He got opxycodone yesterday with good relief. S/P BM bx.-results pending. V/S noted. PE Lungs: clear Cor.: S1S2 Abd.: soft Ext.: no edema Neuro.: alert Labs noted. Objective - Vital Signs/Intake and Output Vital Signs (last 24 hours): Temp Pulse Resp BP Pulse Ox 97.7 F 60 20 133/70 99 08/17/16 07:30 08/17/16 07:30 08/17/16 07:30 08/17/16 07:30 08/17/16 07:30 Intake and Output: 08/17/16 08/17/16 06:59 18:59 Intake Total 900 Balance 900 - Medications Medications: Current Medications Amiodarone HCl (Cordarone) 200 mg PO BID [facility] Last Admin: 08/16/16 18:01 Dose: 200 mg Carvedilol (Coreg) 25 mg PO BID [facility] Last Admin: 08/16/16 18:00 Dose: 25 mg Digoxin (Lanoxin) 0.125 mg PO 1400 [facility] Last Admin: 08/16/16 14:32 Dose: 0.125 mg Enoxaparin Sodium (Lovenox) 40 mg SC Q12H [facility] PRN Reason: Protocol Stop: 08/21/16 18:01 Last Admin: 08/17/16 05:44 Dose: 40 mg Lactulose (Enulose) 10 gm PO DAILY [facility] Losartan Potassium (Cozaar) 50 mg PO DAILY [facility] Last Admin: 08/16/16 09:56 Dose: 50 mg Morphine Sulfate (Morphine) 2 mg IVP Q4H PRN PRN Reason: Pain, severe (8-10) Nortriptyline HCl (Pamelor) 25 mg PO HS [facility] Last Admin: 08/16/16 21:46 Dose: 25 mg Ondansetron HCl (Zofran Inj) 4 mg IVP Q6H PRN PRN Reason: Nausea/Vomiting Oxycodone HCl (Oxycodone Immediate Release Tab) 5 mg PO Q4H PRN PRN Reason: Pain, moderate (4-7) Last Admin: 08/16/16 15:46 Dose: 5 mg Pantoprazole Sodium (Protonix Ec Tab) 20 mg PO ACB CLEO - Labs Labs: 08/17/16 06:45 08/16/16 07:20 PT 13.6 Seconds (9.9-11.8) H 08/17/16 06:45 INR 1.26 (0.93-1.08) H 08/17/16 06:45 APTT 32.5 Seconds (23.7-30.8) H 08/13/16 06:45 Assessment and Plan - Assessment and Plan (Free Text) Plan: Assessment: Abd. pain/gall stones Abn. LFTs CAD/CABG/PCIs Severe LVD, EF ~ 15% ICD/H/O VT/Shock COPD Plan: As per GI and surgery and Dr. Dong. Patient on amiodarone: related to elevated liver enzymes? Will d/w EP: discontinue amio.? Will follow.
[2016-08-17 08:21] LABS: ALB/GLOB RATIO 0.9 (1.1-1.8); ALKALINE PHOSPHATASE 291 U/L (38-133); ALT/SGPT 98 U/L (7-56); AST/SGOT 137 U/L (15-59); BILIRUBIN,TOTAL 1.4 mg/dL (0.2-1.3); BLOOD UREA NITROGEN 10 mg/dL (7-21); CALCIUM 8.9 mg/dL (8.4-10.5); CARBON DIOXIDE 29 mmol/L (21-33); CHLORIDE 99 mmol/L (95-110); GFR AFRICAN-AMERICAN > 60; GLUCOSE,RANDOM 97 mg/dL (70-110); POTASSIUM 4.6 mmol/L (3.6-5.0); SODIUM 137 mmol/L (132-148); TOTAL PROTEIN 6.6 g/dL (5.8-8.3)
[2016-08-17] MEDS: oxyCODONE 5 mg Immediate Release Tab PO PRN ×2 (08:52→18:05)
--- NOTE | 2016-08-17 10:00 | CP.PCM.PN ---
Subjective - Date & Time of Evaluation Date of Evaluation: 08/17/16 Time of Evaluation: 07:00 - Subjective Subjective: Surgery Note for Dr Mcgill: Pt seen and examined at [facility]. NO acute events overnight. Pt co/o mild abd pain but well controlled at this time. Denies any n/v/d/c. Denies any headaches , dizziness, sob, cp, palpitations, urinary or bm changes. Objective - Vital Signs/Intake and Output Vital Signs (last 24 hours): Temp Pulse Resp BP Pulse Ox 97.7 F 60 20 133/70 99 08/17/16 07:30 08/17/16 07:30 08/17/16 07:30 08/17/16 07:30 08/17/16 07:30 Intake and Output: 08/17/16 08/17/16 06:59 18:59 Intake Total 900 Balance 900 - Medications Medications: Current Medications Amiodarone HCl (Cordarone) 200 mg PO BID [facility] Last Admin: 08/16/16 18:01 Dose: 200 mg Carvedilol (Coreg) 25 mg PO BID [facility] Last Admin: 08/16/16 18:00 Dose: 25 mg Digoxin (Lanoxin) 0.125 mg PO 1400 [facility] Last Admin: 08/16/16 14:32 Dose: 0.125 mg Enoxaparin Sodium (Lovenox) 40 mg SC Q12H [facility] PRN Reason: Protocol Stop: 08/21/16 18:01 Last Admin: 08/17/16 05:44 Dose: 40 mg Lactulose (Enulose) 10 gm PO DAILY [facility] Losartan Potassium (Cozaar) 50 mg PO DAILY [facility] Last Admin: 08/16/16 09:56 Dose: 50 mg Morphine Sulfate (Morphine) 2 mg IVP Q4H PRN PRN Reason: Pain, severe (8-10) Nortriptyline HCl (Pamelor) 25 mg PO HS [facility] Last Admin: 08/16/16 21:46 Dose: 25 mg Ondansetron HCl (Zofran Inj) 4 mg IVP Q6H PRN PRN Reason: Nausea/Vomiting Oxycodone HCl (Oxycodone Immediate Release Tab) 5 mg PO Q4H PRN PRN Reason: Pain, moderate (4-7) Last Admin: 08/17/16 08:52 Dose: 5 mg Pantoprazole Sodium (Protonix Ec Tab) 20 mg PO ACB CLEO - Labs Labs: 08/17/16 06:45 08/17/16 06:45 PT 13.6 Seconds (9.9-11.8) H 08/17/16 06:45 INR 1.26 (0.93-1.08) H 08/17/16 06:45 APTT 32.5 Seconds (23.7-30.8) H 08/13/16 06:45 - Constitutional Appears: No Acute Distress - ENT Exam ENT Exam: Mucous Membranes Moist - Respiratory Exam Respiratory Exam: Clear to Ausculation Bilateral, NORMAL BREATHING PATTERN. absent: Wheezes - Cardiovascular Exam Cardiovascular Exam: REGULAR RHYTHM, RRR, +S1, +S2. absent: Murmur - GI/Abdominal Exam GI & Abdominal Exam: Soft, Tenderness, Normal Bowel Sounds. absent: Distended Additional comments: RUQ - Extremities Exam Extremities Exam: absent: Joint Swelling, Pedal Edema - Neurological Exam Neurological Exam: Alert, Awake, Oriented x3 Assessment and Plan - Assessment and Plan (Free Text) Assessment: 71 y/o M presents w/ RUQ pain likely due to Hepatomegaly as per GI. Pt has cholelithiasis also. - No surgery at this time - F/u GI recommendations - F/u abd US - Cont pain control - Anti-emetic and anti-pyretics PRN - Medical management as per primary Further recs discuss with Dr. Artem Jeffers IM Resident PGY-1
[2016-08-17] MEDS: Digoxin 125 mcg (0.125 mg) Tab PO SCH (13:51)
[2016-08-17] MEDS: Pantoprazole 40 mg EC Tab PO SCH (13:52)
[2016-08-17 14:18] LABS: EPSTEIN-BARR VCA AB IGM <0.91 (<0.91)
--- NOTE | 2016-08-17 15:23 | US ---
PROCEDURE: Portal vein duplex ultrasound. CLINICAL HISTORY: Abnormal liver function tests. Possible cirrhosis. Evaluate for portal vein thrombosis. PHYSICIAN(S): Burton Bush M.D. FINDINGS: The extrahepatic portal vein is patent with hepatopetal flow. No sonographic evidence for thrombus or obstruction is seen. The 3 hepatic veins are visualized centrally and patent. The hepatic artery is is hypertrophied and patent. The spleen is slightly enlarged. There is no fluid in the upper abdomen. IMPRESSION: 1. Patent portal vein with hepatopetal flow. 2. Splenomegaly
--- NOTE | 2016-08-17 16:04 | PN ---
DATE: 08/17/2016 Seen and examined at the bedside this afternoon. Went for abdominal Doppler. The patient does complain of right upper quadrant pain. No complaints of shortness of breath or chest pain. No nausea or vomiting. PHYSICAL EXAMINATION: VITAL SIGNS: Temperature is 97.7, blood pressure 133/70, pulse 60, respirations 20, 99 room air. LABORATORY DATA: WBC is 11.8, H and H are 15.1 and 44.5, platelets are 195. PT 13.6, INR is 1.26. Sodium 137, K 4.6, BUN 10, creatinine 0.7. Total bilirubin is 1.4, AST 137, ALT 98, alkaline phosphatase is 291. There is some improvement noted on LFTs. PHYSICAL EXAMINATION: HEENT: Sclerae anicteric. NECK: Supple. CARDIAC: S1, S2. LUNGS: With decreased breath sounds but clear, good aeration. ABDOMEN: With bowel sounds. Soft, nondistended. He does have some mild tenderness to the ____. No rebound, guarding. ASSESSMENT: The patient with complaints of abdominal pain mostly in the ____ area. He had imaging done which reported cholelithiasis, but also noted to have large hepatomegaly and small liver lesions. He is also noted to have mild splenomegaly and complaints of weight loss, atrial fibrillation, on anticoagulant. He is also status post bone marrow; results are pending. He went for an upper endoscopy; found to have nonbleeding erosive gastropathy and esophageal mucosal changes suspicious for short ____ Wisdom's esophagus. The patient has history of automatic implantable cardioverter-defibrillator. Also continue to monitor LFTs. Consider hepatic congestion or if this could be medication-induced hepatitis in this patient - mainly amiodarone. PLAN: Continue to follow up LFTs. He is being followed by hematology. Follow up the bone marrow biopsy and the Doppler. Continue Protonix 20 mg, and patient is on lactulose. He is also on Lovenox and currently he is on amiodarone 200 mg p.o. b.i.d. as per hematology. Discuss with cardiology. He is also being evaluated by surgery. The patient may benefit from liver biopsy. We will follow closely. The patient was seen and case discussed with Dr. Smith. Inessa SUTHERLAND cc: Donny TT: 08/17/2016 15:58:52 Confirmation # [id number] Dictation # [id number] mn MTDD
--- NOTE | 2016-08-17 16:38 | CP.PCM.PN ---
Subjective - Date & Time of Evaluation Date of Evaluation: 08/17/16 Time of Evaluation: 11:25 - Subjective Subjective: Comfortable, afebrile overnight, not in distress. Objective - Vital Signs/Intake and Output Vital Signs (last 24 hours): Temp Pulse Resp BP Pulse Ox 98.2 F 60 18 125/73 92 L 08/17/16 16:00 08/17/16 16:00 08/17/16 16:00 08/17/16 16:00 08/17/16 16:00 Intake and Output: 08/17/16 08/17/16 06:59 18:59 Intake Total 900 540 Balance 900 540 - Medications Medications: Current Medications Amiodarone HCl (Cordarone) 200 mg PO BID [facility] Last Admin: 08/17/16 13:52 Dose: 200 mg Carvedilol (Coreg) 25 mg PO BID [facility] Last Admin: 08/17/16 13:51 Dose: 25 mg Digoxin (Lanoxin) 0.125 mg PO 1400 [facility] Last Admin: 08/17/16 13:51 Dose: 0.125 mg Enoxaparin Sodium (Lovenox) 40 mg SC Q12H [facility] PRN Reason: Protocol Stop: 08/21/16 18:01 Last Admin: 08/17/16 05:44 Dose: 40 mg Lactulose (Enulose) 10 gm PO DAILY [facility] Last Admin: 08/17/16 13:51 Dose: 10 gm Losartan Potassium (Cozaar) 50 mg PO DAILY [facility] Last Admin: 08/17/16 13:52 Dose: 50 mg Morphine Sulfate (Morphine) 2 mg IVP Q4H PRN PRN Reason: Pain, severe (8-10) Nortriptyline HCl (Pamelor) 25 mg PO HS [facility] Last Admin: 08/16/16 21:46 Dose: 25 mg Ondansetron HCl (Zofran Inj) 4 mg IVP Q6H PRN PRN Reason: Nausea/Vomiting Oxycodone HCl (Oxycodone Immediate Release Tab) 5 mg PO Q4H PRN PRN Reason: Pain, moderate (4-7) Last Admin: 08/17/16 08:52 Dose: 5 mg Pantoprazole Sodium (Protonix Ec Tab) 20 mg PO ACB [facility] Last Admin: 08/17/16 13:52 Dose: 20 mg - Labs Labs: 08/17/16 06:45 08/17/16 06:45 PT 13.6 Seconds (9.9-11.8) H 08/17/16 06:45 INR 1.26 (0.93-1.08) H 08/17/16 06:45 APTT 32.5 Seconds (23.7-30.8) H 08/13/16 06:45 - Constitutional Appears: Non-toxic, No Acute Distress - Head Exam Head Exam: NORMAL INSPECTION - Respiratory Exam Respiratory Exam: Decreased Breath Sounds - Cardiovascular Exam Cardiovascular Exam: +S1, +S2 - GI/Abdominal Exam GI & Abdominal Exam: Soft. absent: Tenderness Assessment and Plan - Assessment and Plan (Free Text) Plan: Assessment Hepatosplenamegaly R/O polycythemia vera, RO Budd chiari malformation CAD history of ventricular tachycardia COPD HTN Plan Follow up bone marrow biopsy results, HIV, RPR, FTA-, EBV tests Will continue to monitor off antibiotics
[2016-08-17 20:05] LABS: BETA 1 GLOBULIN 0.4 g/dL (0.4-0.6); BETA 2 GLOBULIN 0.3 g/dL (0.2-0.5); GAMMA GLOBULIN 0.9 g/dL (0.8-1.7)
[2016-08-17 23:17] LABS: BCR-ABL PRIOR RESULT NOT GIVEN (()); BCR-ABL SOURCE NOT GIVEN (()); P190 BCR-ABL1 NOT DETECTED (()); P210 BCR-ABL1 NOT DETECTED (())
[2016-08-18] MEDS: oxyCODONE 5 mg Immediate Release Tab PO PRN ×2 (00:18→14:43)
--- NOTE | 2016-08-18 00:37 | PN ---
DATE: 08/17/2016 The patient is in room 568, bed 2. SUBJECTIVE: The patient is seen and examined at the bedside. He went for an abdominal Doppler to [facility] for his mesenteric vessels to evaluate intestinal angina. The patient complains of right upper q uadrant pain, which is better than what it has been since he came in, which may have been from the si gnificant hepatomegaly pressing against his ribs, still complains of shortness of breath, chest pain, no nausea, vomiting. The patient is status post bone marrow aspiration biopsy done on Wednesday, the r esults of which are still pending. The patient has a history of significant cardiomyopathy with auto matic cardioverter defibrillator implanted. The patient has significant congestive heart failure wit h right-sided regurgitation also accounting for the congestive hepatomegaly. The patient was recentl y scoped and was found to have a nonbleeding erosive gastropathy, mucosal changes suggestive of Wisdom's esophagus, biopsy is pending. The patient has abnormal LFTs, which are being monitored. His workup on the scans have shown hepatomegaly, borderline splenomegaly. Along with this, there wer e also some enlarged retroperitoneal nodes, raising the question whether we were dealing with a lymph oproliferative disorder, for which he underwent a bone marrow aspiration biopsy. PHYSICAL EXAMINATION: VITAL SIGNS: Today are stable. T-max is 98.4, blood pressure 133/70, pulse 60, respirations 20, O2 sat is 99% on room air. LABORATORY DATA: Reveals a white count of 11.8, hemoglobin is 15, hematocrit 44 and platelet count 1 95,000. PT is 13.6 with an INR of 1.26. Sodium is 137, potassium is 4.6, BUN is 10, creatinine 0.7, total bilirubin is 1.4, AST is 137, ALT is 98, alkaline phosphatase is 290 with some improvement in the LFTs. GENERAL: The patient is awake, alert, and oriented. HEENT: Sclerae are anicteric. The patient is complaining of significant epigastric pain, especially when he takes even small amounts of fluid, but appears to be better than 4 days ago. Head is normoc ephalic, atraumatic. Examination of the oropharynx reveals no oropharyngeal lesions. Tongue is mois t. NECK: Supple. There is no adenopathy. HEART: Reveals S1 and S2 to be normal. LUNGS: Reveals decreased breath sounds at both bases. ABDOMEN: Soft, nondistended. The patient continues to have mild discomfort in the right upper quadr ant where the hepatomegaly is noted. No rebound or guarding is noted. ASSESSMENT NOTES AND PLAN: Etiology of the splenomegaly with hepatomegaly is unclear. Will await ca rdiac causes have to be also obtained to relate. Will await the bone marrow aspiration biopsy to be in by tomorrow afternoon to make sure we are ruling out underlying lymphoproliferative causes. We e reviewed all his medicines. He continues to be on Protonix. The patient is on lactulose. He is a lso on Lovenox. Currently, he is on amiodarone 200 b.i.d. He is also being assessed by surgery to leila solorio sure some of his right upper quadrant discomfort is not related to his cholelithiasis. I discuss ed my findings in detail with Dr. Sandoval. We will, again, after reviewing the biopsy report on bone marrow, will discuss with PMD, Dr. Dong as well. The patient may end up requiring a liver biopsy as well and the answers are not clinically critically obtained from the bone marrow biopsy. Thank you for allowing me to participate in the management of this patient. Sheryl Mendez MD cc: [id number] TT: 08/18/2016 00:36:47 Confirmation # [id number] Dictation # [id number] belle
[2016-08-18] MEDS: Enoxaparin 40 mg Syringe SC SCH ×2 (05:06→17:17)
--- NOTE | 2016-08-18 08:11 | CP.PCM.PN ---
Subjective - Date & Time of Evaluation Date of Evaluation: 08/18/16 Time of Evaluation: 08:00 - Subjective Subjective: Stable on 5R. Still DIPAK pain. He got oxycodone yesterday with good relief. S/P BM bx.-results pending. V/S noted. PE Lungs: clear Cor.: S1S2 Abd.: soft Ext.: no edema Neuro.: alert Labs 08/17 noted. BC x2 NG at 24 hrs. Objective - Vital Signs/Intake and Output Vital Signs (last 24 hours): Temp Pulse Resp BP Pulse Ox 98.2 F 60 18 125/73 92 L 08/17/16 16:00 08/17/16 16:00 08/17/16 16:00 08/17/16 16:00 08/17/16 16:00 Intake and Output: 08/18/16 08/18/16 06:59 18:59 Intake Total 360 Balance 360 - Medications Medications: Current Medications Amiodarone HCl (Cordarone) 200 mg PO BID [facility] Last Admin: 08/17/16 18:06 Dose: 200 mg Carvedilol (Coreg) 25 mg PO BID [facility] Last Admin: 08/17/16 18:06 Dose: 25 mg Digoxin (Lanoxin) 0.125 mg PO 1400 [facility] Last Admin: 08/17/16 13:51 Dose: 0.125 mg Enoxaparin Sodium (Lovenox) 40 mg SC Q12H [facility] PRN Reason: Protocol Stop: 08/21/16 18:01 Last Admin: 08/18/16 05:06 Dose: 40 mg Lactulose (Enulose) 10 gm PO DAILY [facility] Last Admin: 08/17/16 13:51 Dose: 10 gm Losartan Potassium (Cozaar) 50 mg PO DAILY [facility] Last Admin: 08/17/16 13:52 Dose: 50 mg Morphine Sulfate (Morphine) 2 mg IVP Q4H PRN PRN Reason: Pain, severe (8-10) Nortriptyline HCl (Pamelor) 25 mg PO HS [facility] Last Admin: 08/17/16 22:27 Dose: 25 mg Ondansetron HCl (Zofran Inj) 4 mg IVP Q6H PRN PRN Reason: Nausea/Vomiting Oxycodone HCl (Oxycodone Immediate Release Tab) 5 mg PO Q4H PRN PRN Reason: Pain, moderate (4-7) Last Admin: 08/18/16 00:18 Dose: 5 mg Pantoprazole Sodium (Protonix Ec Tab) 20 mg PO ACB [facility] Last Admin: 08/17/16 13:52 Dose: 20 mg - Labs Labs: 08/17/16 06:45 08/17/16 06:45 PT 13.6 Seconds (9.9-11.8) H 08/17/16 06:45 INR 1.26 (0.93-1.08) H 08/17/16 06:45 APTT 32.5 Seconds (23.7-30.8) H 08/13/16 06:45 Assessment and Plan - Assessment and Plan (Free Text) Plan: Assessment: Abd. pain/gall stones Hepatosplenomegaly/Abn. LFTs CAD/CABG/PCIs Severe LVD, EF ~ 15% ICD/H/O VT/Shock COPD Plan: As per GI and surgery, Heme/Onc., ID, and Dr. Dong. Patient on amiodarone: related to elevated liver enzymes? Will hold amiodarone for now. Will check echo for LVD and TR Will follow.
--- NOTE | 2016-08-18 09:31 | US ---
PROCEDURE: Duplex Doppler examination of the abdomen HISTORY: celiac SMA IOANA. ?mesenteric ischemia COMPARISON: None available. TECHNIQUE: Duplex Doppler examination of the celiac axis and SMA were performed. FINDINGS: There is normal color flow, direction of flow and spectral waveform in the celiac trunk and superior mesenteric artery. IMPRESSION: Normal duplicate Doppler examination of the celiac trunk and superior mesenteric artery.
--- NOTE | 2016-08-18 09:45 | CP.PCM.PN ---
Subjective - Date & Time of Evaluation Date of Evaluation: 08/18/16 Time of Evaluation: 06:30 - Subjective Subjective: Surgery Note for Dr Mcgill: Pt seen and examined at bedside. No acute events overnight. He c/o of mild obdominal pain. Tolerating diet. Ambulating. He denies any fevers or chills. Denies any n/v/d/c. Denies any headaches, dizziness, sob, cp, palpitations, urinary or bm changes. Objective - Vital Signs/Intake and Output Vital Signs (last 24 hours): Temp Pulse Resp BP Pulse Ox 98.2 F 61 20 105/62 94 L 08/18/16 07:30 08/18/16 07:30 08/18/16 07:30 08/18/16 07:30 08/18/16 07:30 Intake and Output: 08/18/16 08/18/16 06:59 18:59 Intake Total 360 Balance 360 - Medications Medications: Current Medications Amiodarone HCl (Cordarone) 200 mg PO BID [facility] Last Admin: 08/17/16 18:06 Dose: 200 mg Carvedilol (Coreg) 25 mg PO BID [facility] Last Admin: 08/17/16 18:06 Dose: 25 mg Digoxin (Lanoxin) 0.125 mg PO 1400 [facility] Last Admin: 08/17/16 13:51 Dose: 0.125 mg Enoxaparin Sodium (Lovenox) 40 mg SC Q12H [facility] PRN Reason: Protocol Stop: 08/21/16 18:01 Last Admin: 08/18/16 05:06 Dose: 40 mg Lactulose (Enulose) 10 gm PO DAILY [facility] Last Admin: 08/17/16 13:51 Dose: 10 gm Losartan Potassium (Cozaar) 50 mg PO DAILY [facility] Last Admin: 08/17/16 13:52 Dose: 50 mg Morphine Sulfate (Morphine) 2 mg IVP Q4H PRN PRN Reason: Pain, severe (8-10) Nortriptyline HCl (Pamelor) 25 mg PO HS [facility] Last Admin: 08/17/16 22:27 Dose: 25 mg Ondansetron HCl (Zofran Inj) 4 mg IVP Q6H PRN PRN Reason: Nausea/Vomiting Oxycodone HCl (Oxycodone Immediate Release Tab) 5 mg PO Q4H PRN PRN Reason: Pain, moderate (4-7) Last Admin: 08/18/16 00:18 Dose: 5 mg Pantoprazole Sodium (Protonix Ec Tab) 20 mg PO ACB [facility] Last Admin: 08/17/16 13:52 Dose: 20 mg - Labs Labs: 08/17/16 06:45 08/17/16 06:45 PT 13.6 Seconds (9.9-11.8) H 08/17/16 06:45 INR 1.26 (0.93-1.08) H 08/17/16 06:45 APTT 32.5 Seconds (23.7-30.8) H 08/13/16 06:45 - Constitutional Appears: No Acute Distress - ENT Exam ENT Exam: Mucous Membranes Moist - Respiratory Exam Respiratory Exam: Clear to Ausculation Bilateral, NORMAL BREATHING PATTERN - Cardiovascular Exam Cardiovascular Exam: REGULAR RHYTHM, RRR, +S1, +S2. absent: Murmur - GI/Abdominal Exam GI & Abdominal Exam: Soft, Normal Bowel Sounds. absent: Tenderness - Neurological Exam Neurological Exam: Alert, Awake, Oriented x3 Assessment and Plan - Assessment and Plan (Free Text) Assessment: 71 y/o M presents w/ RUQ pain likely 2/2 hepatomegaly and small liver lesions being worked up. Pt also has cholelithiasis. - No surgery at this time f/u further GI recommendations - F/u heme/Onc recs - Abd US -normal celiac trunk and SMA; Patent portal vein and hepatopetal flow - Cont pain control - Anti-emetic and anti-pyretics PRN - Medical management as per primary Further recs discuss with Dr. Artem Jeffers IM Resident PGY-1
[2016-08-18] MEDS: Pantoprazole 40 mg EC Tab PO SCH (11:53)
--- NOTE | 2016-08-18 13:42 | PN ---
DATE: 08/18/2016 SUBJECTIVE: Seen and examined at the bedside earlier today. He just returned from echo. He is stil l having the pain to his epigastric right upper quadrant, ranges from about 3-4. He is in no distres s. He reports having a bowel movement, but 2 days ago, they were like odessa and then he had a yesica l movement today that was soft. No reports of any bleeding per rectum. No nausea or vomiting. VITAL SIGNS: Temperature is 98.2, blood pressure is 105/62, pulse 61, respirations 20, 94 on room ai r. LABORATORY DATA: No new labs are noted for today. Echo report is still pending. PHYSICAL EXAMINATION: HEENT: Sclerae are anicteric. NECK: Supple. CARDIAC: S1, S2. LUNGS: With decreased breath sounds, but good aeration, no rales or wheeze. ABDOMEN: With bowel sounds, soft, mild tenderness on palpation. No rebound or guarding. Bone marrow pathology: There is no evidence of narrow involved by B cell lymphoma, normal cellular m arrow for age, but with maturing trilineage hematopoiesis and there is also on the flow cytometry inderjit lysis the aspirate no evidence for abnormal myeloid maturation or increased blast population, no evid ence of lymphoproliferative disorder ASSESSMENT: This is a 71-year-old male who came with complaints of abdominal pain,, mostly in epigas tric right upper quadrant area. He had ultrasound done, found to have cholelithiasis and also noted to have hepatomegaly and small liver lesion as well as splenomegaly. The patient also did complain o f weight loss. Bone marrow was done. It was negative for lymphoma. The patient had an upper endosc opy to rule out any peptic ulcer disease. He was found to have nonbleeding erosive gastropathy and e sophageal mucosal changes suspicious for Wisdom's esophagus. He was noted to have elevated LFTs whi ch may be secondary to congestion or possibly medication-induced hepatitis. He is on amiodarone, but this is now on hold. Thank you for cardiology input. The patient did go for abdominal Doppler yest erday and that showed splenomegaly, but patent portal vein, went for a Doppler scan yesterday and the celiac trunk and superior mesenteric artery are normal. PLAN: The patient complained of pebble-like stools. He does take oxycodone p.r.n. for the pain. We will start him on stool softeners b.i.d. Continue GI prophylaxis. He is on Protonix. The patient is also on lactulose and also on Lovenox q. 12. Continue his diet as tolerated. The patient is bein g followed by oncology/hematology as well as surgery and cardiology. The patient was seen and case d iscussed with Dr. Smith. Inessa SUTHERLAND cc: [id number] TT: 08/18/2016 13:42:04 Confirmation # [id number] Dictation # [id number] tn
--- NOTE | 2016-08-18 14:19 | PN ---
DATE: 08/18/2016 The patient has no complaints of any chest pain, no shortness of breath, no headaches. Temperature is 98.2, pulse is 60, blood pressure 125/73, respirations 18. GENERAL: The patient comfortable, in no acute distress. HEENT: Anicteric sclerae. Moist mucosa. NECK: No JVD or adenopathy. CARDIAC: S1/S2. No murmurs. No rubs. Regular. RESPIRATORY: Clear to auscultation bilaterally. No wheezes, rales, or rhonchi. Good air entry. ABDOMEN: Bowel sounds are positive, soft, nontender, and nondistended. EXTREMITIES: No edema. Has 1+ pulses. LABS: White count 11.8, hemoglobin 15.1, 0.7. ASSESSMENT: 1. Abdominal pain. 2. Hepatomegaly. 3. Liver lesions secondary to a cyst/hemangioma. 4. Weight loss. 5. Coronary artery disease. 6. Cholelithiasis. 7. Atrial fibrillation, on anticoagulation. 8. Status post coronary artery bypass graft. PLAN: The patient's bone marrow aspiration and biopsy is pending. The etiology of the hepatosplenom egaly is still unclear. The patient is going to continue on amiodarone. The liver functions remain elevated. The patient is being followed by cardiology. There is no surgical intervention that is pl anned at this time. The patient's EF is about 50%. The patient is on Lovenox for DVT prophylaxis. He is on Protonix, is on Zofran. He is ambulating well. He is on losartan. He has an abdominal ult rasound that is pending to rule out mesenteric ischemia. He does have a patent portal vein with good flow. Etiology of his abdominal pain remains unclear. Silvino Dong MD cc: [id number] TT: 08/18/2016 09:52:13 Confirmation # [id number] Dictation # [id number] jn
[2016-08-18] MEDS: Digoxin 125 mcg (0.125 mg) Tab PO SCH (14:43)
--- NOTE | 2016-08-18 23:38 | PN ---
DATE: 08/18/2016 The patient is in room 563, bed 2. SUBJECTIVE: We were asked to see the patient for hepatosplenomegaly and retroperitoneal nodes, for w blash he underwent bone marrow aspiration and biopsy on Wednesday, which was reviewed by me today with hussain hall pathologist, and the results are already on the EMR. The details will be discussed in my findings below. The patient says that his epigastric pain and right upper quadrant pain is on a scale of 0-10, at melissa st 3 or 4. He is in no acute distress. He is moving his bowels. No reports of any active bleeding at this time either by mouth, or from the rectum. No history of nausea or vomiting. VITAL SIGNS: Stable. T-max is 98.4, blood pressure is 105/62, pulse 61, respirations 20, and O2 sat is 94% on room air. No new labs for today were ordered. The patient had an echo done today; report is pending. PHYSICAL EXAMINATION: The patient is awake, alert, and oriented. He is anicteric, and the examination of the oropharynx reveals no oropharyngeal lesions. Tongue is m oist. NECK: Supple. There is no adenopathy. No jugular venous distention noted. LUNGS: Relatively clear to percussion and auscultation. Decreased breath sounds at the bases. EXAMINATION OF THE HEART: Reveals PMI to be in the 5th intercostal space. S1 and S2 are noted. The patient has a systolic murmur heard. ABDOMEN: Soft with mild tenderness on palpation in the right upper quadrant and epigastrium without any rebound or any evidence of guarding. EXTREMITIES: Reveals minimal ankle edema. Bone marrow pathology reveals no evidence of marrow involvement by B cell lymphoma, normal marrow reina lularity for the patient's age with maturing trilineage hematopoiesis, and flow cytometric analysis o f the aspirate shows no evidence of any abnormal myeloid maturation or increase in blast population, and no evidence of lymphoproliferative disorder. ASSESSMENT NOTES AND PLAN: A 71-year-old white male with complaints of abdominal pain, mostly in the epigastric and right upper quadrant area. An ultrasound done; found to have cholelithiasis. Also n oted to have hepatomegaly and splenomegaly, along with small lesions in the liver. The patient also did complain of weight loss. Bone marrow was done, negative for lymphoma, and upper endoscopy showed peptic ulcer disease, nonerosive gastropathy, and esophageal mucosa changes suspicious for Bar rett's esophagus. The patient was noted to have elevated LFTs which was thought to be secondary to congestion, or possi gary medication-induced hepatitis. He is on amiodarone, which is on hold. The patient went for an abdominal ultrasound yesterday that showed splenomegaly, but patent portal ve in. Went for Doppler scan yesterday and the celiac and superior mesenteric artery are normal without any blockage. RECOMMENDATIONS: The patient is on oxycodone p.r.n. He is on stool softeners. He is on GI prophyla xis with Protonix. He is on lactulose. He is on Lovenox q. 12 hours. The patient is continuing his diet as tolerated, and will discuss with both GI and cardiology in which direction we should progres s. The question about doing a liver biopsy was raised. Will check with GI if that will be of any va lue. It is very likely that the liver dysfunction may be related to medication versus chronic passiv e congestion. I will discuss my findings and the marrow reports with the patient's family as well. Sheryl Mendez MD cc: [id number] TT: 08/18/2016 23:38:12 Confirmation # [id number] Dictation # [id number] charla
[2016-08-19] MEDS: oxyCODONE 5 mg Immediate Release Tab PO PRN ×5 (00:28→20:21)
[2016-08-19] MEDS: Enoxaparin 40 mg Syringe SC SCH ×2 (05:13→17:26)
[2016-08-19 06:39] LABS: ADD MANUAL DIFF? NO
[2016-08-19 06:57] LABS: ALB/GLOB RATIO 0.8 (1.1-1.8); ALKALINE PHOSPHATASE 277 U/L (38-133); ALT/SGPT 80 U/L (7-56); AST/SGOT 124 U/L (15-59); BILIRUBIN,TOTAL 1.1 mg/dL (0.2-1.3); BLOOD UREA NITROGEN 17 mg/dL (7-21); CALCIUM 8.5 mg/dL (8.4-10.5); CARBON DIOXIDE 28 mmol/L (21-33); CHLORIDE 101 mmol/L (98-107); GFR AFRICAN-AMERICAN > 60; GLUCOSE,RANDOM 86 mg/dL (70-110); POTASSIUM 4.2 mmol/L (3.6-5.0); SODIUM 136 mmol/L (132-148); TOTAL PROTEIN 5.8 g/dL (5.8-8.3)
[2016-08-19 07:12] LABS: BASO # 0.02 K/mm3 (0.0-2.0); BASO % 0.2 % (0.0-3.0); EOS # 0.4 (0.0-0.7); EOS % 4.2 % (1.5-5.0); GRAN # 6.84 (1.4-6.5); GRAN % 78.9 % (50.0-68.0); HEMATOCRIT 40.2 % (42.0-52.0); LYMPH # 0.9 (1.2-3.4); LYMPH % 10.3 % (22.0-35.0); MEAN CELL VOLUME 95.3 fL (80.0-105.0); MEAN CORPUSCULAR HEMOGLOBIN 32.2 pg (25.0-35.0); MEAN CORPUSCULAR HGB CONC 33.8 g/dl (31.0-37.0); MONO # 0.6 (0.1-0.6); MONO % 6.4 % (1.0-6.0); PLATELET COUNT 155 10^3/uL (120.0-450.0); RED CELL DISTRIBUTION WIDTH 15.7 % (11.5-14.5); WHITE BLOOD COUNT 8.7 10^3/ul (4.5-11.0)
--- NOTE | 2016-08-19 07:38 | PN ---
DATE: 08/19/2016 SUBJECTIVE: The patient says he has pain when he eats his meals. There are no complaints of any hea daches, no dizziness. PHYSICAL EXAMINATION: VITAL SIGNS: Temperature is 98.2, pulse of 61, blood pressure is 105/62, respirations 20. GENERAL: The patient comfortable, in no acute distress. HEENT: Anicteric sclerae. Moist mucosa. NECK: No JVD or adenopathy. CARDIAC: S1/S2. No murmurs. No rubs. Regular. RESPIRATORY: Clear to auscultation bilaterally. No wheezes, rales, or rhonchi. Good air entry. ABDOMEN: Bowel sounds are positive, soft, nontender, and nondistended. EXTREMITIES: No edema. Has 1+ pulses. LABORATORY DATA: White count of 11.8, hemoglobin 15.1. Creatinine 0.7. ASSESSMENT: 1. Abdominal pain, unclear etiology. 2. Hepatomegaly. 3. Liver lesion, secondary to cyst/hemangioma. 4. Weight loss. 5. Coronary artery disease. 6. Cholelithiasis. 7. Atrial fibrillation, on anticoagulation. 8. Status post coronary artery bypass graft. The patient is being followed by Dr. Smith, who believes that this is secondary to his liver issue s and hepatosplenomegaly. The hepatosplenomegaly cause is also unclear. The patient was being follo wed by Dr. Mendez. For the etiology of his hepatosplenomegaly, workup is in progress. He may need a liver biopsy. Dr. Smith did speak to the patient about the possible etiology with hepatosplenom egaly as a cause. Another possibility is mesenteric ischemia. I will await for further input from c ardiology. I also spoke with the patient and he does understand the possible differential in the cau se of his abdominal pain. I did offer him possibility of having a kidney biopsy and also going to a tertiary care center for further evaluation. I did speak to Dr. Smith yesterday about the patient 's diagnosis and plan of care. Silvino Dong MD cc: [id number] TT: 08/19/2016 07:37:21 Confirmation # [id number] Dictation # [id number] en
--- NOTE | 2016-08-19 08:08 | PN ---
DATE: 08/18/2016 ADDENDUM This patient was seen and evaluated earlier. This is an addendum to the GI progress report dictated by Inessa Potts NP. The patient still continues to complain of constant discomfort in the epigastric area. His p.o. inta ke also remains poor. On examination still has a large hepatomegaly and tenderness present. The patient's bone marrow repo rt was reviewed; it was negative. The etiology for the large hepatomegaly remains unclear. He also has splenomegaly and lymphadenopathy. The patient had repeat echocardiogram done; results pending. The concern is the patient has very low EF of 15%, and the patient was also on amiodarone. He mentioned to me about . The likeli agrawal of epigastric upper abdominal pain is probably secondary to large hepatomegaly with a capsular d istention. Hepatic condition with amiodarone-induced hepatitis combination could be a possible diffe rential diagnosis to be considered in this patient. At this point, the liver biopsy could be a reasonable option to further evaluate these symptoms. Cornel justice follow up . We will discuss with Dr. Crum regarding this. I have discussed with Dr. Mj amador earlier today. I will also discuss with the patient, and also request interventional radiology ev aluation for liver biopsy after further discussion, and if he is agreeable. Will consider interventi onal radiological evaluation after further discussion with . We will get a family medicine chair, and also with Dr. Dong, and the patient. Will continue to closely fo llow up. Thank you very much for allowing us to participate in the care of the patient. Will continue to clos mercedes follow up his care, and suggest further management based on the clinical course. Kiana Smith MD cc: [id number] TT: 08/18/2016 22:51:13 Confirmation # [id number] Dictation # [id number] charla
[2016-08-19] MEDS: Pantoprazole 40 mg EC Tab PO SCH (08:23)
--- NOTE | 2016-08-19 09:09 | CARD ---
APPROVED REPORT EXAM: Two-dimensional and M-mode echocardiogram with Doppler and color Doppler. INDICATION Cardiomyopathy 2D DIMENSIONS Left Atrium (2D)5.2 (1.6-4.0cm)IVSd1.1 (0.7-1.1cm) LVDd6.0 (3.9-5.9cm)LVOT Diameter2.1 (1.8-2.4cm) PWd1.5 (0.7-1.1cm)LVDs5.3 (2.5-4.0cm) FS (%) 11.7 %LVEF (%)24.7 (>50%) M-Mode DIMENSIONS Aortic Root3.60 (2.2-3.7cm)Aortic Cusp Exc.1.30 (1.5-2.0cm) Aortic Valve AoV Peak Jogacmis099.0cm/sAoV VTI32.3cmAO Peak GR.17mmHg LVOT Peak Bzctbyjt292.0cm/sLVOT VTI14.80cmAO Mean GR.8mmHg ALFIE (VMAX)1.75cm2 Mitral Valve MV E Ticlowvn83.8cm/sMV E Peak Gr.6mmHgMV A Sjctxtgu078.0cm/s MV E Mean Gr.2mmHgMV PJJ014apA/A ratio0.9 MVA (PHT)1.37cm2 TDI Lateral E' Peak V5.26cm/sMedial E' Peak V3.12cm/sE/Lateral E'17.1 E/Medial E'28.8 Pulmonary Valve PV Peak Trtnyfmo397.0cm/sPV Peak Grad.5mmHg Tricuspid Valve TR Peak Ahtqygpb573xp/sRAP OLLIXVPW32siKvRT Peak Gr.29mmHg [id number] LEFT VENTRICLE The Left Ventricle is moderately dilated. There is mild concentric left ventricular hypertrophy. The ejection fraction is severely impaired. There is dyskinesis in the anteroseptal wall. There is severe hypokinesis in the inferoseptal wall. RIGHT VENTRICLE The right ventricle is normal size. There is an ICD lead in the right ventricle. ATRIA The left atrium is severely dilated. The right atrium is moderately dilated. The interatrial septum is intact with no evidence for an atrial septal defect. AORTIC VALVE The aortic valve is moderately sclerotic. No aortic regurgitation is present. There is no aortic valvular stenosis. MITRAL VALVE Mitral regurgitation is mild. There is an annuloplasty ring present. TRICUSPID VALVE The tricuspid valve is normal in structure. There is mild tricuspid regurgitation. PULMONIC VALVE The pulmonary valve is normal in structure. GREAT VESSELS The aortic root is normal in size. The IVC is normal in size and collapses >50% with inspiration. PERICARDIAL EFFUSION There is no pleural effusion. There is no pericardial effusion. <Conclusion> Dilaterd LA and LV. Severely reduced LV systolic function with anteroseptal dyskinesis and inferoseptal hypokinesis. Overall EF of 15-20%. Mitral annuloplasty ring present. Mild LVH. Mild MR and TR. Aortic sclerosis seen.
--- NOTE | 2016-08-19 11:02 | PN ---
DATE: 08/19/2016 SUBJECTIVE: The patient is seen lying in bed on 5R. He continues to have right upper quadrant pain. Plans are being made for a possible liver biopsy tomorrow. CURRENT MEDICATIONS: Include carvedilol 25 mg b.i.d., Cozaar, digoxin 0.125 mg daily, Lovenox, Pamel or, and Protonix. OBJECTIVE: GENERAL: He is a middle-aged man who appears comfortable at rest. VITAL SIGNS: His blood pressure is 114/60 with a pulse of 60. Respirations are 16. He is afebrile. HEENT: No JVD. CHEST: A few scattered rhonchi. HEART: PMI displaced laterally with soft tones noted. ABDOMEN: Soft with right upper quadrant tenderness. Bowel sounds present. EXTREMITIES: No edema. DIAGNOSTIC DATA: Potassium 4.2. BUN and creatinine are 17 and 0.8. Hemoglobin and hematocrit 13.6 and 40.2 with a white count 8.7, platelet count 155,000. AST and ALT 124/80 with an alkaline phospha tase of 277. IMPRESSION: 1. Persistent abdominal pain felt secondary to hepatomegaly and capsular distention, had been on sta tin therapy as well as amiodarone. Both have been placed on hold. 2. Severe left ventricular dysfunction. 3. Coronary artery disease, status post prior bypass surgery. 4. The rest of the problems as noted. RECOMMENDATIONS: Amiodarone will continue to be withheld at the present time. The rest of his cardi ac medications will continue unchanged. He is stable from a cardiac standpoint to proceed with liver biopsy as planned. Resumption of anticoagulation following this would be appropriate. His statin w ill be withheld indefinitely for now as well. We will continue to follow along and make further recommendations as appropriate. Ankit Montero MD cc: [id number] TT: 08/19/2016 11:01:43 Confirmation # [id number] Dictation # [id number] charla
[2016-08-19 12:13] LABS: JAK2 V617F NOT DETECTED (())
--- NOTE | 2016-08-19 12:16 | PN ---
DATE: 08/19/2016 GI FOLLOWUP NOTE SUBJECTIVE: Seen and examined at the bedside earlier today. He still has pain on the right side. No acute distress. Denies nausea, vomiting, fever or chills , shortness of breath or chest pain. He had a bowel movement today. It was soft and formed, did not notice any melena or bright red blood. VITAL SIGNS: Temperature is 97.6. Blood pressure is 114/60, pulse 61, respirations 18, 96 on room air. LABORATORY DATA: WBC is 8.7. H and H are 13.6 and 40.2. Platelets are 155. His sodium is 136. K is 4.2. BUN 17, creatinine is 0.8. LFTs: Total bilirubin is 1.1, AST 124, ALT 80. Alkaline phosphatase is 277. This continues to improve. PHYSICAL EXAMINATION: HEENT: Sclera is anicteric. NECK: Supple. CARDIAC: S1, S2. LUNGS: Lungs sound clear. ABDOMEN: With bowel sounds, soft, nondistended, nontender at this time, but he does have some hepatomegaly. EXTREMITIES: No edema. NEUROLOGIC: Awake, alert, and oriented. ASSESSMENT: The patient with abdominal pain. The patient does have hepatosplenomegaly. He is also, on CT, noted to have some enlarged lymph nodes and low attenuation lesions in the right liver, which may be a benign cyst or hemangioma. The patient underwent endoscopy to rule out any peptic ulcer disease since originally he was having epigastric pain, and also weight loss, and he was found to have nonbleeding erosive gastropathy and esophagitis, and changes that appear like Wisdom's esophagus. He also underwent a bone marrow to rule out lymphoma that was negative, and he was noted to have elevated liver function tests, which was thought to be secondary maybe to congestion or medication-induced hepatitis. Amiodarone induced hepatitis, this is on hold. PLAN: Liver biopsy planned for tomorrow, Lovenox am dose to be held. He is being seen by cardiology, and appreciate cardiac input. Amiodarone on hold. He is currently on bowel regimen. He is on stool softeners, and also he is on lactulose. We will continue him on the Protonix 20 daily. He is on Lovenox and gets oxycodone p.r.n., and is on digoxin. We will continue to follow closely. As per hematology, cardiology, and ID. The patient was seen and case discussed with Dr. Smith. Inessa SUTHERLAND cc: [id number] TT: 08/19/2016 12:16:18 Confirmation # [id number] Dictation # [id number] jn MTDFaye
--- NOTE | 2016-08-19 13:01 | CP.PCM.PN ---
Subjective - Date & Time of Evaluation Date of Evaluation: 08/19/16 Time of Evaluation: 06:45 - Subjective Subjective: Surgery Note for Dr Mcgill: Pt seen and examined at bedside. No acute events overnight. Pt denies any abdominal pain. She is tolerating diet and ambulating. He denies any fevers, chills n/v/d/c. Denies any headaches, dizziness, sob, cp, palpitations, urinary or bm changes. Objective - Vital Signs/Intake and Output Vital Signs (last 24 hours): Temp Pulse Resp BP Pulse Ox 97.6 F 61 18 114/60 96 08/19/16 07:27 08/19/16 09:14 08/19/16 07:27 08/19/16 09:14 08/19/16 07:27 Intake and Output: 08/19/16 08/19/16 06:59 18:59 Intake Total 120 Output Total 0 Balance 120 - Medications Medications: Current Medications Amiodarone HCl (Cordarone) 200 mg PO BID [facility] Last Admin: 08/17/16 18:06 Dose: 200 mg Carvedilol (Coreg) 25 mg PO BID [facility] Last Admin: 08/19/16 09:14 Dose: 25 mg Digoxin (Lanoxin) 0.125 mg PO 1400 [facility] Last Admin: 08/18/16 14:43 Dose: 0.125 mg Docusate Sodium (Colace) 100 mg PO BID [facility] Last Admin: 08/19/16 09:14 Dose: 100 mg Enoxaparin Sodium (Lovenox) 40 mg SC Q12H [facility] PRN Reason: Protocol Stop: 08/21/16 18:01 Last Admin: 08/19/16 05:13 Dose: 40 mg Lactulose (Enulose) 10 gm PO DAILY [facility] Last Admin: 08/19/16 09:14 Dose: 10 gm Losartan Potassium (Cozaar) 50 mg PO DAILY [facility] Last Admin: 08/19/16 09:14 Dose: 50 mg Nortriptyline HCl (Pamelor) 25 mg PO HS [facility] Last Admin: 08/18/16 21:10 Dose: 25 mg Ondansetron HCl (Zofran Inj) 4 mg IVP Q6H PRN PRN Reason: Nausea/Vomiting Oxycodone HCl (Oxycodone Immediate Release Tab) 5 mg PO Q4H PRN PRN Reason: Pain, moderate (4-7) Last Admin: 08/19/16 12:00 Dose: 5 mg Pantoprazole Sodium (Protonix Ec Tab) 20 mg PO ACB [facility] Last Admin: 08/19/16 08:23 Dose: 20 mg - Labs Labs: 08/19/16 06:30 08/19/16 06:30 PT 13.6 Seconds (9.9-11.8) H 08/17/16 06:45 INR 1.26 (0.93-1.08) H 08/17/16 06:45 APTT 32.5 Seconds (23.7-30.8) H 08/13/16 06:45 - Constitutional Appears: No Acute Distress - ENT Exam ENT Exam: Mucous Membranes Moist - Respiratory Exam Respiratory Exam: Clear to Ausculation Bilateral, NORMAL BREATHING PATTERN - Cardiovascular Exam Cardiovascular Exam: REGULAR RHYTHM, +S1, +S2. absent: Murmur - GI/Abdominal Exam GI & Abdominal Exam: Soft, Tenderness (mild), Normal Bowel Sounds - Neurological Exam Neurological Exam: Alert, Awake, Oriented x3 Assessment and Plan - Assessment and Plan (Free Text) Assessment: 71 y/o M presents w/ RUQ pain likely 2/2 hepatomegaly and small liver lesions being worked up. Pt also has cholelithiasis. - Plan for possible liver biopsy - No surgery at this time - f/u GI recommendations - F/u heme/Onc recs regarding liver biopsy - Abd US -normal celiac trunk and SMA; Patent portal vein and hepatopetal flow - Pain control - Medical management as per primary Further recs discuss with Dr. Artem Jeffers IM Resident PGY-1
[2016-08-19] MEDS: Digoxin 125 mcg (0.125 mg) Tab PO SCH (14:43)
[2016-08-19 17:53] LABS: EBV EA (D) AB IgG <=0.90 (<=0.90)
--- NOTE | 2016-08-19 19:00 | PN ---
DATE: 08/19/2016 ADDENDUM This is an addendum to the GI progress report dictated by Inessa Potts NP. I discussed this case wit h Dr. Dong and also with Dr. Montero, stonemason supervisor. The patient was seen and evaluated earlier. This is an addendum to the GI progress report dictated by Inessa Potts NP. The patient still compl ains of the same chronic epigastric discomfort. The patient is scheduled for a liver biopsy tomorrow . The patient was on Lovenox and it will be on hold tomorrow for the biopsy. Statins also are going to be on hold. Continue to follow up the LFTs. Thank you very much for allowing us to participate in the care of the patient. Kiana Smith MD cc: [id number] TT: 08/19/2016 19:00:07 Confirmation # [id number] Dictation # [id number] dina
[2016-08-19] MEDS ORDERED: Morphine 2 mg/ml ISec IVP STA (23:02)
[2016-08-20] MEDS: Enoxaparin 40 mg Syringe SC SCH ×2 (06:00→19:10)
--- NOTE | 2016-08-20 07:57 | PN ---
DATE: 08/20/2016 SUBJECTIVE: The patient has no complaints of any chest pain or shortness of breath. He is ready to go for his liver biopsy. PHYSICAL EXAMINATION: VITAL SIGNS: Temperature is 97.7, pulse of 60, blood pressure 121/69, respirations 20. GENERAL: The patient comfortable, in no acute distress. HEENT: Anicteric sclerae. Moist mucosa. NECK: No JVD or adenopathy. CARDIAC: S1/S2. No murmurs. No rubs. Regular. RESPIRATORY: Clear to auscultation bilaterally. No wheezes, rales, or rhonchi. Good air entry. ABDOMEN: Bowel sounds are positive, soft, nontender, and nondistended. EXTREMITIES: No edema. Has 1+ pulses. ASSESSMENT: 1. Abdominal pain, unclear etiology. 2. Hepatomegaly. 3. Liver lesion secondary to a cyst and hemangioma. 4. Weight loss. 5. Coronary artery disease. 6. Cholelithiasis. 7. Atrial fibrillation, on anticoagulation. 8. Status post coronary artery bypass graft. 9. Cardiomyopathy with an ejection fraction of 15-20%. 10. Transaminitis. PLAN: The patient is going to undergo a liver biopsy today. I tried to get the liver biopsy done by speaking with Dr. Burton Bush, but the patient had received Lovenox. The patient does have severe LV dysfunction. The patient's amiodarone is on hold because of the elevated LFTs. He is going to continue with lactulose. He is on losartan for his cardiomyopathy as well as blood pressure. He is on Colace for constipation. He is on Protonix. The patient is scheduled for a liver biopsy. His Lovenox is currently on hold. Will await liver biopsy results. Spoke to Dr Crum and Dr Burton Bush about Mesenteric ischemia. Dr Bush states less likely according to his evaluation. SMA look good. Will need to consider angiogram if bx of liver does not show any sig abnormalities. He does have hx of CAD and CABG. Will also order serology to work up for autoimmune diseases ex Polyarteritis Nodosa etc. Silvino Dong MD cc: [id number] TT: 08/20/2016 07:57:00 Confirmation # [id number] Dictation # [id number] belle GRANDE
--- NOTE | 2016-08-20 08:05 | CP.PCM.PN ---
Subjective - Date & Time of Evaluation Date of Evaluation: 08/20/16 Time of Evaluation: 08:00 - Subjective Subjective: Stable on 5R. Still DIPAK pain. He got IV MS yesterday with good relief, slept well. V/S noted. PE Lungs: clear Cor.: S1S2 Abd.: soft Ext.: no edema Neuro.: alert Labs 08/19 noted. ALT and AST trending down BC x2 NG at 3 days BM bx. noted. Echo 08/18 noted: Severe LVD, Mild MR and TR. See Report. Objective - Vital Signs/Intake and Output Vital Signs (last 24 hours): Temp Pulse Resp BP Pulse Ox 98.1 F 61 20 117/74 94 L 08/20/16 07:30 08/20/16 07:30 08/20/16 07:30 08/20/16 07:30 08/20/16 07:30 Intake and Output: 08/20/16 08/20/16 06:59 18:59 Intake Total 480 Balance 480 - Medications Medications: Current Medications Amiodarone HCl (Cordarone) 200 mg PO BID [facility] Last Admin: 08/17/16 18:06 Dose: 200 mg Carvedilol (Coreg) 25 mg PO BID [facility] Last Admin: 08/19/16 17:24 Dose: 25 mg Digoxin (Lanoxin) 0.125 mg PO 1400 [facility] Last Admin: 08/19/16 14:43 Dose: 0.125 mg Docusate Sodium (Colace) 100 mg PO BID [facility] Last Admin: 08/19/16 17:25 Dose: 100 mg Enoxaparin Sodium (Lovenox) 40 mg SC Q12H [facility] PRN Reason: Protocol Stop: 08/21/16 18:01 Last Admin: 08/19/16 17:26 Dose: 40 mg Lactulose (Enulose) 10 gm PO DAILY [facility] Last Admin: 08/19/16 09:14 Dose: 10 gm Losartan Potassium (Cozaar) 50 mg PO DAILY [facility] Last Admin: 08/19/16 09:14 Dose: 50 mg Nortriptyline HCl (Pamelor) 25 mg PO HS [facility] Last Admin: 08/19/16 22:46 Dose: 25 mg Ondansetron HCl (Zofran Inj) 4 mg IVP Q6H PRN PRN Reason: Nausea/Vomiting Oxycodone HCl (Oxycodone Immediate Release Tab) 5 mg PO Q4H PRN PRN Reason: Pain, moderate (4-7) Last Admin: 08/19/16 20:21 Dose: 5 mg Pantoprazole Sodium (Protonix Ec Tab) 20 mg PO ACB [facility] Last Admin: 08/19/16 08:23 Dose: 20 mg - Labs Labs: 08/19/16 06:30 08/19/16 06:30 PT 13.6 Seconds (9.9-11.8) H 08/17/16 06:45 INR 1.26 (0.93-1.08) H 08/17/16 06:45 APTT 32.5 Seconds (23.7-30.8) H 08/13/16 06:45 Assessment and Plan - Assessment and Plan (Free Text) Plan: Assessment: Abd. pain/gall stones Hepatosplenomegaly/Abn. LFTs CAD/CABG/PCIs Severe LVD, EF ~ 15% ICD/H/O VT/Shock/amiodarone tx. COPD Plan: As per GI and surgery, Heme/Onc., ID, and Dr. Dong. Hold amiodarone and statin for now. Liver bx. scheduled for today. Consider mesenteric ischemia as well. Follow LFTs.
--- NOTE | 2016-08-20 08:22 | CP.PCM.PN ---
Subjective - Date & Time of Evaluation Date of Evaluation: 08/20/16 Time of Evaluation: 06:30 - Subjective Subjective: Surgery Note for Dr Mcgill: Pt seen and examined at bedside. No acute events overnight. Pt c/o abdominal pain well controlled with pain meds. He is tolerating diet. Ambulating. He denies any fevers, chills n/v/d/c. Denies any headaches, dizziness, sob, cp, palpitations, urinary or bm changes. Objective - Vital Signs/Intake and Output Vital Signs (last 24 hours): Temp Pulse Resp BP Pulse Ox 98.1 F 61 20 117/74 94 L 08/20/16 07:30 08/20/16 07:30 08/20/16 07:30 08/20/16 07:30 08/20/16 07:30 Intake and Output: 08/20/16 08/20/16 06:59 18:59 Intake Total 480 Balance 480 - Medications Medications: Current Medications Amiodarone HCl (Cordarone) 200 mg PO BID [facility] Last Admin: 08/17/16 18:06 Dose: 200 mg Carvedilol (Coreg) 25 mg PO BID [facility] Last Admin: 08/19/16 17:24 Dose: 25 mg Digoxin (Lanoxin) 0.125 mg PO 1400 [facility] Last Admin: 08/19/16 14:43 Dose: 0.125 mg Docusate Sodium (Colace) 100 mg PO BID [facility] Last Admin: 08/19/16 17:25 Dose: 100 mg Enoxaparin Sodium (Lovenox) 40 mg SC Q12H [facility] PRN Reason: Protocol Stop: 08/21/16 18:01 Last Admin: 08/19/16 17:26 Dose: 40 mg Lactulose (Enulose) 10 gm PO DAILY [facility] Last Admin: 08/19/16 09:14 Dose: 10 gm Losartan Potassium (Cozaar) 50 mg PO DAILY [facility] Last Admin: 08/19/16 09:14 Dose: 50 mg Nortriptyline HCl (Pamelor) 25 mg PO HS [facility] Last Admin: 08/19/16 22:46 Dose: 25 mg Ondansetron HCl (Zofran Inj) 4 mg IVP Q6H PRN PRN Reason: Nausea/Vomiting Oxycodone HCl (Oxycodone Immediate Release Tab) 5 mg PO Q4H PRN PRN Reason: Pain, moderate (4-7) Last Admin: 08/19/16 20:21 Dose: 5 mg Pantoprazole Sodium (Protonix Ec Tab) 20 mg PO ACB [facility] Last Admin: 08/19/16 08:23 Dose: 20 mg - Labs Labs: 08/19/16 06:30 08/19/16 06:30 PT 13.6 Seconds (9.9-11.8) H 08/17/16 06:45 INR 1.26 (0.93-1.08) H 08/17/16 06:45 APTT 32.5 Seconds (23.7-30.8) H 08/13/16 06:45 - Constitutional Appears: No Acute Distress - ENT Exam ENT Exam: Mucous Membranes Moist - Respiratory Exam Respiratory Exam: Clear to Ausculation Bilateral, NORMAL BREATHING PATTERN - Cardiovascular Exam Cardiovascular Exam: REGULAR RHYTHM, +S1, +S2. absent: Murmur - GI/Abdominal Exam GI & Abdominal Exam: Soft, Tenderness (mild), Normal Bowel Sounds, Organomegaly. absent: Distended - Neurological Exam Neurological Exam: Alert, Awake, Oriented x3 Assessment and Plan - Assessment and Plan (Free Text) Assessment: 71 y/o M presents w/ RUQ pain likely 2/2 hepatomegaly and small liver lesions being worked up. Pt also has cholelithiasis. - Plan for CT guided liver biopsy today - No surgery at this time - Cont f/u GI recommendations - F/u heme/Onc recs - Pain control - Medical management as per primary Further recs discuss with Dr. Artem Jeffers IM Resident PGY-1
[2016-08-20] MEDS ORDERED: Midazolam 2 MG/2 ML VIAL ONE (08:40)
[2016-08-20] MEDS ORDERED: Oxycodone/Acetaminophen 5/325 mg Tab PO PRN (09:27)
[2016-08-20] MEDS ORDERED: Sodium Chloride 0.45% 1,000 ML IV SCH (09:30)
[2016-08-20] MEDS ORDERED: oxyCODONE 10 mg Immediate Release Tab PO PRN (13:15)
[2016-08-20] MEDS: Pantoprazole 40 mg EC Tab PO SCH (13:30)
--- NOTE | 2016-08-20 15:46 | PN ---
DATE: 08/20/2016 SUBJECTIVE: The patient was seen and examined earlier today. Status post liver biopsy. No reports of acute distress. No nausea, vomiting, or complaints of abdominal pain or any upper GI bleed. VITAL SIGNS: Temperature is 98.1, blood pressure is 112/65, pulse 60, respirations 15, 96 on room ai r. LABORATORY DATA: No new labs are noted for today. PHYSICAL EXAMINATION: HEENT: Sclera is anicteric. NECK: Supple. CARDIAC: S1, S2. LUNGS: With decreased breath sounds but good aeration, no rales or wheeze. ABDOMEN: With bowel sounds, soft, nontender at this time. He has right-sided dressing. No rebound or guarding. ASSESSMENT: This is a 71-year-old male, came with abdominal pain of unclear etiology. He has hepato splenomegaly. Complains of weight loss. Liver lesion secondary to a cyst and hemangioma. He also h as transaminitis, which is improving. May be medication induced, such as amiodarone, this is on hold . Status post coronary artery bypass graft, cardiomyopathy with an ejection fraction of 15%, history of colon polyp. PLAN: Continue the clear liquids. He is going to get prepped for colonoscopy tomorrow. He will sta rt GoLYTELY at 4 this afternoon. N.p.o. after 12 midnight and request to hold the a.m. dose of Loven ox. Hold stool softener for 6:00 p.m. Followup liver biopsy. Discussed with the patient who agrees to have procedure done. The patient was seen and case discussed with Dr. Smith. Inessa SUTHERLAND cc: [id number] TT: 08/20/2016 15:45:37 Confirmation # [id number] Dictation # [id number]
[2016-08-20] MEDS ORDERED: Peg-Electrolyte Oral Soln 4L (Golytely) PO ONE (16:00)
[2016-08-20] MEDS: Digoxin 125 mcg (0.125 mg) Tab PO SCH (16:08)
--- NOTE | 2016-08-20 17:09 | CT ---
PROCEDURE: CT guided liver biopsy. HISTORY: Hepatic splenomegaly. Abnormal LFTs. Evaluate for amiodarone toxicity PHYSICIAN(S): Burton Bush MD. TECHNIQUE: The relative risks and indications of the procedure were explained to the patient and consent obtained. The patient was placed supine on the CT scanner and preliminary images through the liver obtained. Conscious sedation and monitoring were provided throughout the procedure by a nurse. A trace amount of ascites is noted in the upper abdomen.. A right subcostal approach was selected and the area prepped and draped in the usual sterile fashion. 1% Xylocaine was used to anesthetize the skin and soft tissues. A 17-gauge guiding needle was advanced into the medial segment of the left lobe of the liver. Its position was confirmed with CT. Using coaxial technique, multiple core biopsies were obtained. The postprocedure images show no evidence of significant hemorrhage. IMPRESSION: 1. CT-guided liver biopsy as described above.
--- NOTE | 2016-08-21 01:01 | PN ---
DATE: 08/20/2016 The patient is in room 563, bed 2. SUBJECTIVE: The patient is examined and seen at the bedside, is sitting out of bed, still had pain i n the right side but he tells me the epigastric and the stomach pain is better. Dr. Montero, the car diologist, and Dr. Smith had gone over his medication list and currently tells me that even though he had to take 1 dose of morphine last night for relief of pain. The patient has been taken off of both the amiodarone and atorvastatin for now and he just had a liver biopsy done today, results of wh ich are still pending. Denies any nausea, vomiting, fevers or chills, shortness of breath or chest p ain. He had a bowel movement today that was formed, did not see any melena or bright red stool. T-max is 98.4, blood pressure is 114/60, pulse is 61, respirations 18, O2 sat is 96% on room air. LABORATORY DATA: Reveals white count is 8.8, hemoglobin and hematocrit 13.6 and 40.2, platelet count 155,000. Electrolytes are unremarkable. Total bilirubin is 1.1, AST and ALT are still elevated, bu t trending down and alkaline phosphatase at 277 and is improving. PHYSICAL EXAMINATION: GENERAL: The patient is awake, alert, and oriented. HEENT: Head is normocephalic, atraumatic. The patient has a pacemaker defibrillator in left chest wall. The examination of the oropharynx reveals no oropharyngeal lesions. NECK: Supple. There is no adenopathy. No jugular venous distention noted. LUNGS: Clear to percussion and auscultation. HEART: Reveals PMI in the 5th intercostal space. S1 and S2 are normal. No gallop or murmur is hear d. ABDOMEN: Soft, nontender. The patient is nontender in the lower abdomen. He still has vague epigast facundo and right upper quadrant tenderness. The patient does have hepatomegaly. No other masses are fel t. There is no evidence of surgical abdomen. EXTREMITIES: Reveal no cyanosis, clubbing or edema. NEUROLOGIC: ____ functions are normal. The patient is awake, alert, and oriented and is definitely hard of hearing. ASSESSMENT NOTES AND PLAN: The patient has abdominal pain, especially in the hepatic area. Etiology of the pain is unclear though he had abnormal LFTs, elevated alkaline phosphatase, along with the med icines he is currently on, one would have to think about interactions with the pill with the liver ca using some of his symptoms. Of course amiodarone and atorvastatin have been on hold. The patient g ot a liver biopsy that will also tell us the etiology for the hepatomegaly. His bone marrow was revi ewed with the pathologist along with a report from [facility]. Does not reveal any evidence of lymphoma, lymphoproliferative disorder, myeloproliferative disorder, and myelodysplastic syndrome. The patient is also scheduled for colonoscopy in the a.m. The CAT scan which shows the enlarged ly mph nodes in the retroperitoneum at this point is unclear whether it is inflammatory, responding to u nderlying process with a true pathologic node. The patient had an endoscopy which showed the patient to have extensive gastropathy and esophagitis and signs and suggestions of Wisdom's esophagus. The biopsy results are still pending. The patient could have hepatitis associated with her other medications though a biopsy was just done. Tres is on hold, was seen by cardiology and once he is cleared after the biopsy tomorrow, he is g zee to get a colonoscopy and hopefully with all this we should have some straightforward answers for the intensity of the pain and what needs to be done. The patient is on stool softeners, he is takin g GoLYTELY and is on Protonix daily. He is on oxycodone p.r.n. He is getting morphine for very karen re episodes of pain. He is on digoxin. Will follow the patient carefully until his issues are resolv ed. I have given copies of the bone marrow reports and [facility] reports to the patient. Sheryl Mendez MD cc: [id number] TT: 08/21/2016 01:00:25 Confirmation # [id number] Dictation # [id number] charla
[2016-08-21] MEDS: Enoxaparin 40 mg Syringe SC SCH ×2 (05:46→18:57)
[2016-08-21 06:46] LABS: HEMATOCRIT 42.4 % (42.0-52.0); MEAN CELL VOLUME 96.1 fL (80.0-105.0); MEAN CORPUSCULAR HEMOGLOBIN 31.7 pg (25.0-35.0); MEAN PLATELET VOLUME 12.2 fl (7.0-11.0); RED CELL DISTRIBUTION WIDTH 15.6 % (11.5-14.5); WHITE BLOOD COUNT 10.4 10^3/ul (4.5-11.0)
[2016-08-21 06:53] LABS: ALB/GLOB RATIO 0.9 (1.1-1.8); ALKALINE PHOSPHATASE 278 U/L (38-133); ALT/SGPT 84 U/L (7-56); AST/SGOT 136 U/L (15-59); BILIRUBIN,TOTAL 1.4 mg/dL (0.2-1.3); BLOOD UREA NITROGEN 21 mg/dL (7-21); CALCIUM 8.7 mg/dL (8.4-10.5); CARBON DIOXIDE 33 mmol/L (21-33); CHLORIDE 98 mmol/L (95-110); GFR AFRICAN-AMERICAN > 60; GLUCOSE,RANDOM 77 mg/dL (70-110); POTASSIUM 5.2 mmol/L (3.6-5.0); SODIUM 141 mmol/L (132-148); TOTAL PROTEIN 6.5 g/dL (5.8-8.3)
--- NOTE | 2016-08-21 08:01 | PN ---
DATE: 08/20/2016 ADDENDUM: This is an addendum to the GI progress report dictated by Inessa Potts NP. The patient was seen and evaluated earlier, status post liver biopsy. The patient is still complaini ng of some epigastric discomfort, appears to be for him slightly better, but the patient did have a h istory of polyps in the past with small hepatic lesions. reasonable to do the repeat colonosco py as the patient is on Lovenox now and the patient was at home on Eliquis. Discussed with the patient at length. In view of the complexity of the case and the history of patie nt needing to be on anticoagulation and small liver lesions, it is reasonable to the colonoscopy and the patient fully agree. He is scheduled for . morning dose of Lovenox. Thank you very much for allowing us to participate in the care of the patient. Kiana Smith MD cc: [id number] TT: 08/20/2016 22:52:16 Confirmation # [id number] Dictation # [id number] dn
--- NOTE | 2016-08-21 08:19 | PN ---
DATE: 08/21/2016 SUBJECTIVE: The patient has no complaints of any chest pain or shortness of breath. He says he has pain when he eats. He says the medications do help his symptoms. OBJECTIVE: VITAL SIGNS: Temperature is 98.2, pulse of 56, blood pressure 86/53, respirations 18. GENERAL: The patient comfortable, in no acute distress. HEENT: Anicteric sclerae. Moist mucosa. NECK: No JVD or adenopathy. CARDIAC: S1/S2. No murmurs. No rubs. Regular. RESPIRATORY: Clear to auscultation bilaterally. No wheezes, rales, or rhonchi. Good air entry. ABDOMEN: Bowel sounds are positive, soft, nontender, and nondistended. EXTREMITIES: No edema. Has 1+ pulses. LABORATORY DATA: White count of 8.7, hemoglobin 13.6, creatinine 0.8. ASSESSMENT: 1. Abdominal pain, unclear etiology -- hepatosplenomegaly, probably secondary to amiodarone. 2. Transaminitis, probable amiodarone toxicity. 3. Status post liver biopsy. 4. Liver lesion secondary to cyst/hemangioma. 5. Weight loss. 6. Coronary artery disease, status post coronary artery bypass graft. 7. Cardiomyopathy with an ejection fraction of 15-20%. 8. Atrial fibrillation, on anticoagulation. 9. Transaminitis. PLAN: The patient is currently comfortable. He is on Colace for constipation. He is on carvedilol. The patient is on losartan for hypertension. The patient is on oxycodone for severe pain. He is g oing for colonoscopy today. I did speak to the patient's daughter yesterday about the patient's disc harge. She is concerned that he is not ready to be discharged. I explained to her that the patient pr efers to go home. He is not a candidate for rehabilitation because he is able to walk. His pain is b eing managed with pain medications. We will reevaluate for discharge after colonoscopy. If the wojciech ent does not wish to stay in the hospital, the patient can be discharged and will get outpatient foll owup by Dr. Smith for the liver biopsy results. I did advise them to take small meals, 5-6 throug hout the day to minimize his abdominal pain that may be secondary to early satiety given that he has hepatosplenomegaly. We will await further input from Dr. Smith after his colonoscopy. Silvino Dong MD cc: [id number] TT: 08/21/2016 08:18:57 Confirmation # [id number] Dictation # [id number] tn
--- NOTE | 2016-08-21 08:35 | CP.PCM.PN ---
Subjective - Date & Time of Evaluation Date of Evaluation: 08/21/16 Time of Evaluation: 06:30 - Subjective Subjective: Surgery Note for Dr Mcgill: Pt seen and examined at bedside. No acute events overnight. Denies any abdominal pain. Tolerating diet. Ambulating. He denies any fevers, chills n/v/d/ c. Denies any headaches, dizziness, sob, cp, palpitations, urinary or bm changes. Objective - Vital Signs/Intake and Output Vital Signs (last 24 hours): Temp Pulse Resp BP Pulse Ox 98.2 F 56 L 18 86/53 L 91 L 08/20/16 16:00 08/20/16 16:00 08/20/16 16:00 08/20/16 19:11 08/20/16 16:00 Intake and Output: 08/21/16 08/21/16 06:59 18:59 Intake Total 360 Balance 360 - Medications Medications: Current Medications Amiodarone HCl (Cordarone) 200 mg PO BID [facility] Last Admin: 08/17/16 18:06 Dose: 200 mg Carvedilol (Coreg) 25 mg PO BID [facility] Last Admin: 08/20/16 19:11 Dose: Not Given Digoxin (Lanoxin) 0.125 mg PO 1400 [facility] Last Admin: 08/20/16 16:08 Dose: 0.125 mg Docusate Sodium (Colace) 100 mg PO BID [facility] Last Admin: 08/20/16 19:12 Dose: Not Given Enoxaparin Sodium (Lovenox) 40 mg SC Q12H [facility] PRN Reason: Protocol Stop: 08/21/16 18:01 Last Admin: 08/21/16 05:46 Dose: Not Given Lactulose (Enulose) 10 gm PO DAILY [facility] Last Admin: 08/20/16 13:29 Dose: 10 gm Losartan Potassium (Cozaar) 50 mg PO DAILY [facility] Last Admin: 08/20/16 13:29 Dose: 50 mg Nortriptyline HCl (Pamelor) 25 mg PO HS [facility] Last Admin: 08/20/16 21:16 Dose: 25 mg Ondansetron HCl (Zofran Inj) 4 mg IVP Q6H PRN PRN Reason: Nausea/Vomiting Oxycodone HCl (Oxycodone Immediate Release Tab) 10 mg PO Q4H PRN PRN Reason: Pain, moderate (4-7) Last Admin: 08/20/16 22:06 Dose: 10 mg Oxycodone/Acetaminophen (Percocet 5/325 Mg Tab) 1 tab PO Q4H PRN PRN Reason: Pain, moderate (4-7) Stop: 08/23/16 09:28 Last Admin: 08/20/16 13:31 Dose: 1 tab Pantoprazole Sodium (Protonix Ec Tab) 20 mg PO ACB [facility] Last Admin: 08/20/16 13:30 Dose: 20 mg - Labs Labs: 08/21/16 05:50 08/21/16 05:50 PT 13.6 Seconds (9.9-11.8) H 08/17/16 06:45 INR 1.26 (0.93-1.08) H 08/17/16 06:45 APTT 32.5 Seconds (23.7-30.8) H 08/13/16 06:45 - Constitutional Appears: No Acute Distress - ENT Exam ENT Exam: Mucous Membranes Moist - Respiratory Exam Respiratory Exam: Clear to Ausculation Bilateral, NORMAL BREATHING PATTERN - Cardiovascular Exam Cardiovascular Exam: REGULAR RHYTHM, +S1, +S2. absent: Murmur - GI/Abdominal Exam GI & Abdominal Exam: Soft, Normal Bowel Sounds. absent: Distended, Tenderness - Neurological Exam Neurological Exam: Alert, Awake, Oriented x3 Assessment and Plan - Assessment and Plan (Free Text) Assessment: 71 y/o M presents w/ RUQ pain likely 2/2 hepatomegaly and small liver lesions being worked up s/p Liver biopsy. Pt also has cholelithiasis. - F/u liver biopsy pathology - No surgery at this time - F/u GI recommendations - F/u heme/Onc recs - Pain control - Medical management as per primary Further recs discuss with Dr. Artem Jeffers IM Resident PGY-1
[2016-08-21] MEDS ORDERED: Propofol 10 mg/ml Inj (20 ML) ONE (13:37)
[2016-08-21] MEDS ORDERED: Etomidate 20 mg/10ml Inj IV ONE (13:38)
[2016-08-21] MEDS ORDERED: Midazolam 2 MG/2 ML VIAL ONE (13:38)
--- NOTE | 2016-08-21 14:40 | CP.PCM.PN ---
Subjective - Date & Time of Evaluation Date of Evaluation: 08/21/16 Time of Evaluation: 10:50 - Subjective Subjective: Comfortable, afebrile, not in distress. Had liver biopsy yesterday and for endoscopy today. Objective - Vital Signs/Intake and Output Vital Signs (last 24 hours): Temp Pulse Resp BP Pulse Ox 98.1 F 61 20 117/74 94 L 08/20/16 07:30 08/20/16 07:30 08/20/16 07:30 08/20/16 07:30 08/20/16 07:30 Intake and Output: 08/20/16 08/20/16 06:59 18:59 Intake Total 480 Balance 480 - Medications Medications: Current Medications Amiodarone HCl (Cordarone) 200 mg PO BID [facility] Last Admin: 08/17/16 18:06 Dose: 200 mg Carvedilol (Coreg) 25 mg PO BID [facility] Last Admin: 08/19/16 17:24 Dose: 25 mg Digoxin (Lanoxin) 0.125 mg PO 1400 [facility] Last Admin: 08/19/16 14:43 Dose: 0.125 mg Docusate Sodium (Colace) 100 mg PO BID [facility] Last Admin: 08/19/16 17:25 Dose: 100 mg Enoxaparin Sodium (Lovenox) 40 mg SC Q12H [facility] PRN Reason: Protocol Stop: 08/21/16 18:01 Last Admin: 08/19/16 17:26 Dose: 40 mg Lactulose (Enulose) 10 gm PO DAILY [facility] Last Admin: 08/19/16 09:14 Dose: 10 gm Losartan Potassium (Cozaar) 50 mg PO DAILY [facility] Last Admin: 08/19/16 09:14 Dose: 50 mg Nortriptyline HCl (Pamelor) 25 mg PO HS [facility] Last Admin: 08/19/16 22:46 Dose: 25 mg Ondansetron HCl (Zofran Inj) 4 mg IVP Q6H PRN PRN Reason: Nausea/Vomiting Oxycodone HCl (Oxycodone Immediate Release Tab) 5 mg PO Q4H PRN PRN Reason: Pain, moderate (4-7) Last Admin: 08/19/16 20:21 Dose: 5 mg Pantoprazole Sodium (Protonix Ec Tab) 20 mg PO ACB [facility] Last Admin: 08/19/16 08:23 Dose: 20 mg - Labs Labs: 08/19/16 06:30 08/19/16 06:30 PT 13.6 Seconds (9.9-11.8) H 08/17/16 06:45 INR 1.26 (0.93-1.08) H 08/17/16 06:45 APTT 32.5 Seconds (23.7-30.8) H 08/13/16 06:45 - Constitutional Appears: Non-toxic, No Acute Distress - Respiratory Exam Respiratory Exam: Decreased Breath Sounds - Cardiovascular Exam Cardiovascular Exam: +S1, +S2 - GI/Abdominal Exam GI & Abdominal Exam: Soft. absent: Tenderness Assessment and Plan - Assessment and Plan (Free Text) Plan: Assessment Hepatosplenamegaly etiology to be determined, S/P liver biopsy CAD history of ventricular tachycardia COPD HTN Plan bone marrow biopsy did not reveal a specific etiology; HIV, RPR, FTA-ABS, EBV tests are negative; follow up results of the liver biopsy Will continue to monitor off antibiotics since he is at risk for nosocomial infections
[2016-08-21 17:29] VITALS: RESP 20; TEMP 97.3; O2SAT 91
[2016-08-21] MEDS: Digoxin 125 mcg (0.125 mg) Tab PO SCH (18:56)
[2016-08-21 18:58] VITALS: BP 117/57; PULSE 73
== END 2016-08-21 20:36 | disposition home or self-care (01) | DRG 442 ==
LOC: ED 09:06 → ERH 13:54 → 5RSO 15:08 → 5RNO 18:05
PROVIDERS: ADMIT Internal Medicine Nephrology; ATTEND Internal Medicine Nephrology
PROC: 0DJ08ZZ Inspection of Upper Intestinal Tract, Via Natural or Artificial Opening Endoscopic (ICD-10-PCS; 2016-08-12)
PROC: 07DR3ZX Extraction of Iliac Bone Marrow, Percutaneous Approach, Diagnostic (ICD-10-PCS; 2016-08-14)
PROC: 0FB23ZX Excision of Left Lobe Liver, Percutaneous Approach, Diagnostic (ICD-10-PCS; principal; 2016-08-20 08:30)
DX: K71.10 Toxic liver disease with hepatic necrosis, without coma (principal); T46.2X5A Adverse effect of other antidysrhythmic drugs, initial encounter; I50.22 Chronic systolic (congestive) heart failure; I47.2 Ventricular tachycardia; I42.9 Cardiomyopathy, unspecified; R16.2 Hepatomegaly with splenomegaly, not elsewhere classified; I11.0 Hypertensive heart disease with heart failure; I48.0 Paroxysmal atrial fibrillation; D18.03 Hemangioma of intra-abdominal structures; J44.9 Chronic obstructive pulmonary disease, unspecified; K80.20 Calculus of gallbladder without cholecystitis without obstruction; E78.5 Hyperlipidemia, unspecified; I25.10 Atherosclerotic heart disease of native coronary artery without angina pectoris; H91.93 Unspecified hearing loss, bilateral; K27.9 Peptic ulcer, site unspecified, unspecified as acute or chronic, without hemorrhage or perforation; K20.9 Esophagitis, unspecified; R59.1 Generalized enlarged lymph nodes; R63.4 Abnormal weight loss; R79.89 Other specified abnormal findings of blood chemistry; K25.9 Gastric ulcer, unspecified as acute or chronic, without hemorrhage or perforation; K31.9 Disease of stomach and duodenum, unspecified; Z86.73 Personal history of transient ischemic attack (TIA), and cerebral infarction without residual deficits; Z95.810 Presence of automatic (implantable) cardiac defibrillator; Z95.1 Presence of aortocoronary bypass graft; Z86.010 Personal history of colon polyps; Z79.01 Long term (current) use of anticoagulants; Z95.5 Presence of coronary angioplasty implant and graft; Z87.891 Personal history of nicotine dependence

== ENCOUNTER 2016-09-17 10:24 | Inpatient (IN) | payer MEDICARE ==
[2016-09-17 10:34] VITALS: BMI 22.8
--- NOTE | 2016-09-17 11:26 | ED PDOC ---
Arrival/HPI - General Chief Complaint: Weakness/Neurological Deficit Time Seen by Provider: 09/17/16 10:42 Historian: Patient - History of Present Illness Narrative History of Present Illness (Text): 09/17/16 11:25 A 71 year old female presents to the emergency department complaining of worsening generalized weakness for the past few days. Patient states he had an appointment today with shank rander for his abdominal pain but felt to weak to make it to his office. Patient reports he fell yesterday at home and states his legs "gave out" which caused him to fall forward. Patient notes head trauma and left hip/leg pain but denies any loss of consciousness, fever, chills , nausea, vomiting, diarrhea, chest pain, shortness of breath or any other complaints. PMD: Dr. Mallorie Crawley Executive Associate: Dr. Moon Inspector Tester Sorter: Dr. Smith Time/Duration: Other (few days) Symptom Course: Worsening Quality: Other Context: Home Past Medical History - Provider Review Nursing Documentation Reviewed: Yes - Infectious Disease Hx of Infectious Diseases: None - Tetanus Immunization Tetanus Immunization: Unknown - Cardiac Hx Pacemaker: Yes (LEFT CHEST WALL) - Pulmonary Hx Respiratory Disorders: No - Neurological Hx Paralysis: No - HEENT Hx HEENT Disorder: Yes (WEARS RX GLASSES) Hx Deafness: Yes (bilateral hearing aids) - Renal Hx Renal Disorder: No - Endocrine/Metabolic Hx Endocrine Disorders: No - Hematological/Oncological Hx Blood Transfusions: Yes (2 YEARS AGO) Hx Blood Transfusion Reaction: No - Integumentary Hx Dermatological Disorder: No - Musculoskeletal/Rheumatological Hx Musculoskeletal Disorders: No - Gastrointestinal Hx Gastrointestinal Disorders: No Hx Gall Bladder Disease: Yes (GALLSTONES) - Genitourinary/Gynecological Hx Genitourinary Disorders: Yes (OVERACTIVE BLADDER) - Psychiatric Hx Emotional Abuse: No Hx Physical Abuse: No Hx Substance Use: No - Surgical History Hx Coronary Stent: Yes (9) Hx Open Heart Surgery: Yes - Anesthesia Hx Anesthesia: Yes Hx Anesthesia Reactions: No Hx Malignant Hyperthermia: No - Suicidal Assessment Feels Threatened In Home Enviroment: No Family/Social History - Physician Review Nursing Documentation Reviewed: Yes Family/Social History: No Known Family HX Smoking Status: Former Smoker Hx Alcohol Use: No Hx Substance Use: No Hx Substance Use Treatment: No Allergies/Home Meds Allergies/Adverse Reactions: Allergies No Known Allergies Allergy (Verified 08/10/16 21:16) Home Medications: Home Meds Medication Instructions Recorded Confirmed Carvedilol [Coreg] 25 mg PO BID 03/12/13 09/17/16 Nortriptyline [Pamelor] 25 mg HS 03/12/13 09/17/16 Apixaban [Eliquis] 5 mg PO BID 09/22/13 09/17/16 Digoxin [Digitek] 125 mcg PO HS 08/10/16 09/17/16 Furosemide [Lasix] 40 mg PO DAILY 08/10/16 09/17/16 Guaifenesin/Pseudoephedrne HCl 30 - 600 mg PO BID 08/10/16 09/17/16 [Mucinex D ER 600-60 mg Tablet] Losartan [Cozaar] 50 mg PO DAILY 08/10/16 09/17/16 Potassium Chloride [K-Dur 20 mEq 20 meq PO DAILY 08/10/16 09/17/16 ER Tab] Nitroglycerin [Nitrostat] 1 tab SL PRN PRN 09/17/16 09/17/16 Review of Systems - Physician Review All systems were reviewed & negative as marked: Yes - Review of Systems Constitutional: Other (Generalized weakness, Head trauma). absent: Fevers, Night Sweats Eyes: absent: Vision Changes ENT: absent: Hearing Changes Respiratory: absent: SOB, Cough Cardiovascular: absent: Chest Pain, Palpitations, Orthopnea Gastrointestinal: Abdominal Pain. absent: Diarrhea, Nausea, Vomiting Musculoskeletal: Other (Left hip/leg pain) Neurological: absent: Headache, Dizziness, Focal Weakness Endocrine: absent: Diaphoresis Hemo/Lymphatic: absent: Adenopathy Psychiatric: absent: Anxiety Physical Exam Vital Signs Reviewed: Yes Vital Signs Temp Pulse Resp BP Pulse Ox 09/17/16 14:59 70 18 109/64 95 09/17/16 13:00 70 18 93/55 L 96 09/17/16 11:32 86 18 98/54 L 98 09/17/16 10:52 97.4 F L 09/17/16 10:40 70/45 L 09/17/16 10:37 70 18 97 Temperature: Afebrile Blood Pressure: Hypotensive Pulse: Regular Respiratory Rate: Normal Appearance: Positive for: Non-Toxic, Comfortable, Other (Pale) Pain Distress: None Mental Status: Positive for: Alert and Oriented X 3 Finger Stick Blood Glucose: 98 - Systems Exam Head: Present: Atraumatic, Normocephalic Pupils: Present: PERRL Extroacular Muscles: Present: EOMI Conjunctiva: Present: Normal Mouth: Present: Moist Mucous Membranes, Other (pallor to mucus membranes) Neck: Present: Normal Range of Motion Respiratory/Chest: Present: Clear to Auscultation, Good Air Exchange. No: Respiratory Distress, Accessory Muscle Use Cardiovascular: Present: Regular Rate and Rhythm, Normal S1, S2. No: Murmurs Abdomen: Present: Normal Bowel Sounds. No: Tenderness, Distention, Peritoneal Signs Back: Present: Normal Inspection Upper Extremity: Present: Normal Inspection. No: Cyanosis, Edema Lower Extremity: Present: Edema (pitting edema bilaterally), NORMAL PULSES, Normal ROM, Tenderness (Bony left hip tenderness, Left mid femur tenderness), Neurovascularly Intact. No: CALF TENDERNESS, Erythema, Deformity, Temperature Abnormalties Neurological: Present: GCS=15, CN II-XII Intact, Speech Normal Skin: Present: Warm, Dry, Pale. No: Rashes Psychiatric: Present: Alert, Oriented x 3, Normal Insight, Normal Concentration Medical Decision Making ED Course and Treatment: 09/17/16 11:37 Impression: A 71 year old male with generalized weakness. Patient notes head trauma and left hip/leg pain after fall yesterday. Patient being evaluated outpatient for nonspecific abdominal pain. Differential Diagnosis included but are not limited to: Plan: -- Head CT -- Chest xray -- Labs -- Urinalysis -- IV fluids -- Reassess and disposition Prior Visits: Notes and results from previous visits were reviewed. Patient last seen in the ED on 08/10/16 and had an extensive abdominal work up done. No clear ideology obtained. Patient scheduled for an exploratory laparotomy. Progress Notes: Patient reports his last tetanus shot was approximately 2-3 weeks ago. EKG shows paced rhythm at [address]-segment elevations, normal intervals. Interpreted by me. Report Date : 09/17/2016 11:43:42 Procedure: Chest xray Dictator : José Miguel Pereyra MD IMPRESSION: No active disease. Report Date : 09/17/2016 12:43:51 PROCEDURE: CT HEAD WITHOUT CONTRAST. Dictator : Burton Buck MD IMPRESSION: No intracranial mass, hemorrhage or evidence of acute infarct. 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 Small old right posterior temporal infarct. 09/17/16 12:48 No acute pathology on CT head. Cxray negative. Labs show worsening liver function. Liver biopsy reviewed and showed ?drug induced injury. 09/17/16 13:35 Worsening liver (elevated bili, inr, and lfts) and acute kindey injury, (? hepatorenal syndrome) with associated electrolyte abnormalities. No ekg changes. IVF infusing. Dr. Owens aware and accepts patient. GI consult placed 09/17/16 13:59 Trop resulted and is 0.22. Patient has a hx of bypass x 5 and reports last stressed test was "bad" and medical mgmt is only remaining option. Elevated trop could also be secondary to renal failure, chf. Patient already anticoagulated on eliquis. Aspirin ordered. Dr. Owens aware. Cardiology consulted placed. Repeat ekg unchanged. - Lab Interpretations Lab Results: 09/17/16 12:03 09/17/16 12:53 Lab Results 09/17/16 12:53: Sodium 133, Chloride 104, Potassium 5.3 H, Carbon Dioxide 24, Anion Gap 10, BUN 63 H, Creatinine 2.0 H, Est GFR ( Amer) 40, Est GFR ( Non-Af Amer) 33, Random Glucose 81, Calcium 7.7 L, Phosphorus 5.0 H, Magnesium 2.7 H, Total Bilirubin 2.4 H, AST 130 H, ALT 107 H, Alkaline Phosphatase 261 H, Total Creatine Kinase 58, Troponin I 0.22 H* D, NT-Pro-B Natriuret Pep 2570 H, Total Protein 5.3 L, Albumin 2.2 L, Globulin 3.1, Albumin/Globulin Ratio 0.7 L 09/17/16 12:17: pO2 32, VBG pH 7.29 L, VBG pCO2 56.0, VBG HCO3 26.9, VBG Total CO2 28.6 H, VBG O2 Sat (Calc) 63.3, VBG Base Excess -0.7 L, VBG Potassium 5.7 H , Sodium 132.0, Chloride 104.0, Glucose 89, Lactate 1.9, FiO2 21.0, Venous Blood Potassium 5.7 H 09/17/16 12:03: PT 15.9 H, INR 1.47 H, APTT 36.9 H 09/17/16 12:03: WBC 13.3 H D, RBC 4.29, Hgb 14.0, Hct 40.9 L, MCV 95.3, MCH 32.6 , MCHC 34.2, RDW 16.7 H, Plt Count 175, MPV 12.1 H, Gran % 85.1 H, Lymph % (Auto ) 7.1 L, [place] % (Auto) 4.4, Eos % (Auto) 3.2, Baso % (Auto) 0.2, Gran # 11.33 H , Lymph # 1.0 L, [place] # 0.6, Eos # 0.4, Baso # 0.02 09/17/16 10:50: POC Glucose (mg/dL) 98 I have reviewed the lab results: Yes - RAD Interpretation Radiology Orders: 09/17/16 11:25 HEAD W/O CONTRAST [CT] Stat CHEST PORTABLE [RAD] Stat 09/17/16 13:24 Hip Left [HIP MIN 2V W/ PELVIS LT] [RAD] Stat 09/17/16 13:25 Femur Left [FEMUR MIN 2 VIEWS LT] [RAD] Stat - Medication Orders Current Medication Orders: Discontinued Medications Aspirin (Aspirin Chewable) 324 mg PO STAT STA Stop: 09/17/16 13:57 Last Admin: 09/17/16 14:03 Dose: 324 mg Sodium Chloride (Sodium Chloride 0.9%) 500 mls @ 999 mls/hr IV .Q31M STA Stop: 09/17/16 11:59 Last Admin: 09/17/16 12:22 Dose: 999 mls/hr Sodium Chloride (Sodium Chloride 0.9%) 1,000 mls @ 999 mls/hr IV .Q1H1M STA Stop: 09/17/16 14:25 Last Admin: 09/17/16 14:06 Dose: 999 mls/hr - Scribe Statement The provider has reviewed the documentation as recorded by the Tanya Montes Provider Scribe Attestation: All medical record entries made by the Scribe were at my direction and personally dictated by me. I have reviewed the chart and agree that the record accurately reflects my personal performance of the history, physical exam, medical decision making, and the department course for this patient. I have also personally directed, reviewed, and agree with the discharge instructions and disposition. Disposition/Present on Arrival - Present on Arrival Any Indicators Present on Arrival: No History of DVT/PE: No History of Uncontrolled Diabetes: No Urinary Catheter: No History of Decub. Ulcer: No History Surgical Site Infection Following: None - Disposition Have Diagnosis and Disposition been Completed?: Yes Diagnosis: Renal failure, Liver failure Disposition: HOSPITALIZED Disposition Time: 13:39 Patient Problems: Current Active Problems Problem Status Onset Renal failure Acute Liver failure Acute Condition: FAIR
[2016-09-17] MEDS ORDERED: Sodium Chloride 0.9% 500 ML IV STA (11:29)
--- NOTE | 2016-09-17 11:45 | RAD ---
HISTORY: Weakness COMPARISON: No prior. FINDINGS: LUNGS: No active pulmonary disease. PLEURA: No significant pleural effusion identified, no pneumothorax apparent. CARDIOVASCULAR: Mild cardiomegaly OSSEOUS STRUCTURES: No significant abnormalities. VISUALIZED UPPER ABDOMEN: Normal. OTHER FINDINGS: Dual lead pacemaker IMPRESSION: No active disease.
[2016-09-17 12:14] LABS: ADD MANUAL DIFF? NO
[2016-09-17 12:29] LABS: BASO # 0.02 K/mm3 (0.0-2.0); BASO % 0.2 % (0.0-3.0); EOS # 0.4 (0.0-0.7); EOS % 3.2 % (1.5-5.0); GRAN # 11.33 (1.4-6.5); GRAN % 85.1 % (50.0-68.0); HEMATOCRIT 40.9 % (42.0-52.0); LYMPH % 7.1 % (22.0-35.0); MEAN CELL VOLUME 95.3 fL (80.0-105.0); MEAN CORPUSCULAR HEMOGLOBIN 32.6 pg (25.0-35.0); MEAN CORPUSCULAR HGB CONC 34.2 g/dl (31.0-37.0); MEAN PLATELET VOLUME 12.1 fl (7.0-11.0); MONO # 0.6 (0.1-0.6); MONO % 4.4 % (1.0-6.0); PLATELET COUNT 175 10^3/uL (120.0-450.0); RED CELL DISTRIBUTION WIDTH 16.7 % (11.5-14.5); WHITE BLOOD COUNT 13.3 10^3/ul (4.5-11.0)
[2016-09-17 12:34] LABS: VENOUS BLOOD GAS BASE EXCESS -0.7 mmol/L (0.0-2.0); VENOUS BLOOD PH 7.29 (7.32-7.43)
[2016-09-17 12:36] LABS: INR 1.47 (0.93-1.08); PARTIAL THROMBOPLASTIN TIME 36.9 Seconds (23.7-30.8)
--- NOTE | 2016-09-17 12:45 | CT ---
PROCEDURE: CT HEAD WITHOUT CONTRAST. HISTORY: head injury COMPARISON: 03/13/2013 TECHNIQUE: Axial computed tomography images were obtained through the head/brain without intravenous contrast. Radiation dose: Total exam DLP = 774.23 mGy-cm. This CT exam was performed using one or more of the following dose reduction techniques: Automated exposure control, adjustment of the mA and/or kV according to patient size, and/or use of iterative reconstruction technique. FINDINGS: HEMORRHAGE: No intracranial hemorrhage. BRAIN: No intracranial mass. There is increase in extent of an old right parietal infarct. This now involves the right occipital lobe. There is a separate small right posterior temporal infarct. This was not evident on prior examination. No evidence of acute infarct. Mild chronic periventricular white matter ischemic change. VENTRICLES: Unremarkable. No hydrocephalus. CALVARIUM: Unremarkable. PARANASAL SINUSES: Unremarkable as visualized. No significant inflammatory changes. MASTOID AIR CELLS: Unremarkable as visualized. No inflammatory changes. OTHER FINDINGS: None. IMPRESSION: No intracranial mass, hemorrhage or evidence of acute infarct. 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 Small old right posterior temporal infarct.
[2016-09-17 13:23] LABS: ALB/GLOB RATIO 0.7 (1.1-1.8); BILIRUBIN,TOTAL 2.4 mg/dL (0.2-1.3); CALCIUM 7.7 mg/dL (8.4-10.5); MAGNESIUM 2.7 mg/dL (1.7-2.2); TOTAL PROTEIN 5.3 g/dL (5.8-8.3)
[2016-09-17] MEDS ORDERED: Sodium Chloride 0.9% 1,000 ML IV STA (13:25)
[2016-09-17 13:26] LABS: POTASSIUM 5.3 mmol/L (3.6-5.0)
[2016-09-17 13:54] LABS: TROPONIN I 0.22 ng/mL
--- NOTE | 2016-09-17 14:17 | RAD ---
PROCEDURE: Left Femur Radiographs. HISTORY: left femur pain after fall COMPARISON: None. TECHNIQUE: AP and Lateral Radiographs of the left femur. FINDINGS: FEMUR: Normal. No fracture. SOFT TISSUES: Normal. OTHER FINDINGS: None. IMPRESSION: Unremarkable radiographs of the left femur.
--- NOTE | 2016-09-17 14:18 | RAD ---
PROCEDURE: Left Hip and pelvis X-ray Radiographs. HISTORY: L hip pain after fall COMPARISON: None. FINDINGS: BONES: Normal. No fracture. JOINTS: Normal. SOFT TISSUES: Normal. OTHER FINDINGS: None. IMPRESSION: Negative study
[2016-09-17 15:04] LABS: URINE BILIRUBIN NEGATIVE (NEGATIVE); URINE BLOOD NEGATIVE (NEGATIVE); URINE GLUCOSE (UA) NEGATIVE (NEGATIVE); URINE KETONE TRACE mg/dL (NEGATIVE); URINE LEUKOCYTE ESTERASE NEGATIVE Leu/uL (NEGATIVE); URINE PROTEIN TRACE mg/dL (<30 mg/dL)
[2016-09-17 15:05] LABS: URINE APPEARANCE CLEAR (CLEAR); URINE COLOR YELLOW (YELLOW)
[2016-09-17 15:14] LABS: URINE BACTERIA FEW (NEG); URINE RBC NEGATIVE /hpf (0-2); URINE WBC 0 - 2 /hpf (0-6)
--- NOTE | 2016-09-17 15:20 | CARD ---
APPROVED REPORT EKG Measurement Heart [id number] <Conclusion> AV sequential or dual chamber electronic pacemaker
[2016-09-17] MEDS ORDERED: Sodium Chloride 0.9% 1,000 ML IV SCH (17:15)
[2016-09-17] MEDS: Dextrose 5%/0.9% NS 1,000 ML IV SCH (17:33)
[2016-09-17] MEDS ORDERED: Pneumococcal 23-Valent Vaccine IM ONE (17:42)
--- NOTE | 2016-09-17 18:05 | CARD ---
APPROVED REPORT EKG Measurement Heart [id number] <Conclusion> AV sequential or dual chamber electronic pacemaker
[2016-09-18] MEDS: Dextrose 5%/0.9% NS 1,000 ML IV SCH (04:39)
--- NOTE | 2016-09-18 05:12 | CON ---
DATE: 09/17/2016 SUBJECTIVE: This patient was seen and evaluated earlier and discussed with nursing staff. This 71-year-old patient with a past medical history of coronary artery disease status post bypass, severe left ventricular dysfunction , admitted with the epigastric and right upper quadrant discomfort, more pronounced. The patient was hospitalized last month. We had an extensive workup done. The patient has a history of coronary artery disease status post PCI, status post defibrillator placement . On this admission The patient has been having the same chronic pain, however, he described the worsening recently than he was discharged from the hospital. The patient has a history of status post AICD placement. His main complaint is pain in the epigastric and right upper quadrant pain and ever since discharge the symptoms are also getting worse. The patient did have elevated liver enzymes, has a small gallstone. The other past medical history significant for the patient had a history of fall , no bleeding per rectum. No vomiting blood. Other past medical history is significant for previous history of LV dysfunction. The patient is status post defibrillator placement in 2012. 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 PAST MEDICAL HISTORY: As above, history of COPD, dyslipidemia, history of colonic polyp, last colonoscopy polypectomy site appeared normal, diverticulosis. There is history of atrial fibrillation. FAMILY HISTORY: Noncontributory. SOCIAL HISTORY: Was a smoker, 1 pack per day, quit in 2007. REVIEW OF SYSTEMS: The 10-point systems reviewed. Positive as above. PHYSICAL EXAMINATION: GENERAL: The patient is lying on the bed, not in acute distress. VITAL SIGNS: Temperature is 97.9, blood pressure is 93/58, pulse 70, respirations 19. HEENT: Atraumatic, anicteric. NECK: Supple. LUNGS: Bilateral ae present HEART: S1, S2 heard. LUNGS: Bilateral air entry present. ABDOMEN: Soft, without hepatomegaly. Tenderness in the epigastric and right upper quadrant area. EXTREMITIES: Bilateral edema present. NEUROLOGIC: Alert, oriented. Moves all the extremities. LABORATORY DATA: [id number], hematocrit 40.9, WBC 13.3, platelet count 175. Chemistry showed his troponin is elevated to 0.22. Total bilirubin is 2.4, AST 130, ALT is 107, alkaline phosphatase 261. ASSESSMENT AND PLAN: This 71-year-old patient with a history of congestive heart failure, atrial fibrillation, on Eliquis. Recently discharged from the hospital following treatment for right upper quadrant pain, epigastric pain, similar presentation, status post liver bx. Multiple workup done including MRI workup done. The patient had a liver biopsy done on 08/20. Biopsies showed hepatitis, probably drug induced. The patient was on amiodarone and since then has been discontinued. The likely cause of epigastric and right upper quadrant symptoms, may represent his hepatic condition plus slowly improving drug induced hepatitis.Less likely due to gallstones Followup of the LFTs. We will request for ultrasound scan of the abdomen to further reevaluate. The patient had small gall stones and normal common bile duct. His other comorbidities include congestive heart failure, atrial fibrillation. Thank you for allowing us to participate in the care of the patient. We will continue to closely follow his care and suggest further management based on the clinical course. Kiana Smith MD cc: [id number] TT: 09/18/2016 05:11:54 Confirmation # [id number] Dictation # [id number]
[2016-09-18] MEDS: oxyCODONE 5 mg Immediate Release Tab PO STA ×2 (05:49→06:29)
[2016-09-18 07:41] LABS: HEMATOCRIT 38.8 % (42.0-52.0); MEAN CELL VOLUME 95.1 fL (80.0-105.0); MEAN CORPUSCULAR HEMOGLOBIN 31.9 pg (25.0-35.0); MEAN CORPUSCULAR HGB CONC 33.5 g/dl (31.0-37.0); MEAN PLATELET VOLUME 11.5 fl (7.0-11.0); RED CELL DISTRIBUTION WIDTH 16.9 % (11.5-14.5); WHITE BLOOD COUNT 12.2 10^3/ul (4.5-11.0)
[2016-09-18 08:02] LABS: ALB/GLOB RATIO 0.7 (1.1-1.8); CALCIUM 7.7 mg/dL (8.4-10.5); MAGNESIUM 2.8 mg/dL (1.7-2.2); PHOSPHOROUS 3.9 mg/dL (2.5-4.5); TOTAL PROTEIN 5.4 g/dL (5.8-8.3)
--- NOTE | 2016-09-18 08:06 | US ---
HISTORY: As per MD order COMPARISON: Abdominal ultrasound performed 08/10/16 TECHNIQUE: Sonographic evaluation of the abdomen. FINDINGS: LIVER: Measures 18.9 cm in sagittal dimension. Echogenic liver may be seen in setting of hepatic parenchymal disease or fatty infiltration. No focal hepatic mass identified. Evidence of thrombosed portal vein without demonstrated flow. No intrahepatic bile duct dilatation. GALLBLADDER: Gallstones. Gallbladder sludge. Gallbladder wall appears mildly thickened measuring approximately 4 mm and there is evidence of slight pericholecystic edema. Positive sonographic Delacruz's sign as assessed by the underpresser hand. Ascites, perihepatic. COMMON BILE DUCT: Measures 6 mm. PANCREAS: Not well visualized. RIGHT KIDNEY: Measures 11.0 x 4.6 x 5.2cm. No obstructing calculus or hydronephrosis identified. LEFT KIDNEY: Measures 10.9 x 4.7 x 4.7cm. No obstructing calculus or hydronephrosis identified. SPLEEN: Measures approximately 14.9 cm. AORTA: Limited views appear unremarkable. IVC: Limited views appear unremarkable. OTHER FINDINGS: None. IMPRESSION: Perihepatic ascites. Echogenic liver may be seen in setting of hepatic parenchymal disease or fatty infiltration. Evidence of thrombosed portal vein. Cholelithiasis. Gallbladder sludge. Gallbladder wall appears mildly thickened/pericholecystic edema. Positive sonographic Delacruz's sign as assessed by the underpresser hand. Correlate clinically for acute cholecystitis. Splenomegaly.
[2016-09-18 08:18] LABS: TROPONIN I 0.22 ng/mL
--- NOTE | 2016-09-18 09:59 | HP ---
CHIEF COMPLAINT AND HISTORY OF PRESENT ILLNESS: This is a 71-year-old male who is coming into the [facility] with complaints of abdominal pain. He says that he gets pain every time he eats. He has a hi story of amiodarone-induced hepatitis. The patient says he also had a fall at home and has a bruise on the right side of his temporal area on his head. He has been seeing his speech lang path therapist, Dr. Jenny padron. He says his pain is not improved. He does require pain medications. He denies any fevers or chills, no nausea, no vomiting, no loss of consciousness. He is just complaining of weakness. He has fatigue. He has difficulty in tolerating diet. The pain is about 7/10, especially worse with f ood, nonradiating, mostly epigastric. All other review of symptoms are within normal limits except as mentioned. ALLERGIES: No known drug allergies. HOME MEDICATIONS: Carvedilol, timolol, Eliquis, Digitek, losartan, potassium, nitroglycerin. PAST SURGICAL HISTORY: AICD, CABG, giant cell tumor of right elbow. SOCIAL HISTORY: He denies smoking, drinking alcohol. PAST MEDICAL HISTORY: Coronary artery disease, hypertension, dyslipidemia. PHYSICAL EXAMINATION: VITAL SIGNS: Temperature is 97.8, pulse of 63, blood pressure is 94/60, respirations 19, O2 saturati on 94%. Height is 5 feet 8 inches, weight is 143 pounds, BMI is 21.8. GENERAL: The patient is malnourished. There is bitemporal wasting. The patient lying in bed, flat , and in no apparent distress. HEAD AND NECK EXAM: There is a small hematoma on the right side of his temporal area with ecchymosi s that is healing. Conjunctivae are pink. Throat clear and mouth with moist mucosa. Oropharynx ginger ign. EYES: Extraocular movements are intact. PERRLA. NECK: Supple. No JVD, thyromegaly, or adenopathy. No bruits. HEART: S1 and S2 regular rate and rhythm. No murmurs, rubs, or gallops. LUNGS: Clear to auscultation bilaterally. No wheezing rales or rhonchi appreciated. No retraction s on exam. ABDOMEN: Soft, nontender, nondistended. Bowel sounds are positive in all quadrants. No rebound. No hepatosplenomegaly. EXTREMITIES: No cyanosis, clubbing, or edema. NEUROLOGIC: No facial asymmetry, tongue is midline, no uvula deviation. Power is 5/5 in upper extr emity and 5/5 in lower extremity. Sensation is normal in upper extremity and lower extremity. PSYCHIATRIC: Awake, alert, oriented x 3. No anxiety or depression symptoms. Good insight. Loli l affect. GENITOURINARY: No CVA tenderness VASCULAR: 2+ pulses in carotid and pedal pulses. SKIN: No erythema or abnormal nodules noted. SPINE: Normal curvature. LYMPHADENOPATHY: No anterior cervical or posterior cervical adenopathy. No inguinal adenopathy. LABORATORIES: White count of 13.3, hemoglobin is 14, platelet count is 175. INR is 1.47. PH of 7.2 9 with a pCO2 of 56, PaO2 of 32. Chemistry shows sodium 133, potassium is 5.3. He has AST, ALT is 1 30 and 107. The creatinine is 2.0. Troponin is 0.22. His albumin is 2.2. His urine shows blood is negative, nitrites are negative. The femur x-ray done of the left shows no fractures. His CT of the head done shows no intracranial masses or acute infarct. Chest x-ray done shows no active disease. EKG shows AV sequential pacemaker present at rate of 70. Left hip x-ray is negative for fractures. ASSESSMENT: 1. Abdominal pain. 2. Amiodarone-induced hepatitis. 3. Hepatomegaly. 4. Splenomegaly. 5. Malnutrition, moderate, with an albumin of 2.2. 6. Transaminitis. 7. Coagulopathy. 8. Pacemaker. PLAN: The patient has had an extensive evaluation before. He has had CHUCKIE and ANCA that was done in the past, which was negative. C3, C4 has been negative. His serum immunofixation and serum protein electrophoresis was negative as well. HIV was negative. RPR was negative. He continues to have abd ominal pain. The patient has been off his amiodarone. He had an ultrasound done that showed perihep atic ascites. There was echogenic liver with parenchymal disease. There was mild thickening and per icholecystic edema. The patient continues to decline. Overall prognosis is guarded. He is on IV fl uids. We will continue his IV fluids. He may be going into hepatorenal syndrome. The patient has b een placed on a liquid diet. I am holding his blood pressure medications. He is already coagulopath ic, so I am holding his Eliquis. He is going to be seen by Dr. Smith. I will also have Dr. Westbrook ran evaluate him for his elevated troponin. He is on a liquid diet. We will repeat his blood work t omorrow. Silvino Dong MD cc: [id number] TT: 09/18/2016 09:58:51 en
--- NOTE | 2016-09-18 15:05 | PN ---
DATE: 09/18/2016 Seen and examined at the bedside earlier today. The patient still complains of abdominal pain, mostl y starts in the epigastric area and usually occurs right after eating that radiates to the right uppe r quadrant to his back, not really complaining of any nausea or vomiting. No fever or chills. He we nt for an abdominal ultrasound this morning, positive for portal vein thrombosis. VITAL SIGNS: Temperature is 97.8, blood pressure is 100/53, pulse is 63, respirations 19, 94 on room air. LABORATORY DATA: WBC is 12.2, H and H is 13.0 and 38.8. Sodium 134, K is 5.0, BUN 59, creatinine is 1.8. Total bilirubin is 2.0. AST 120, ALT 107, alkaline phosphatase is 271. Troponin remained at 0.22. Abdominal ultrasound shows gallstones and gallbladder sludge. The common bile duct measures 6 mm. Gallbladder wall appears mildly thickened/pericholecystic edema, positive sonographic Delacruz si gn, splenomegaly, perihepatic ascites and evidence of thrombosed portal vein. PHYSICAL EXAMINATION: HEENT: Sclerae are mildly icteric. NECK: Supple. CARDIAC: S1, S2. LUNGS: Sounds are clear. No rales or wheeze. ABDOMEN: With bowel sounds. It is soft. Positive tenderness to epigastric area. No rebound or gua rding. No hepatosplenomegaly. EXTREMITIES: Positive pedal bilateral lower extremity edema. NEUROLOGIC: Awake, alert, and oriented. ASSESSMENT: Abdominal pain, mostly in the epigastric area, usually after eating. He has amiodarone- induced hepatitis, hepatosplenomegaly, now portal vein thrombosis, transaminitis, history of pacemake r and cholelithiasis. PLAN:. We will request Dr. Burton Bush to evaluate the patient for the portal vein thrombosis and st art the patient on heparin drip per protocol, but with no bolus. Continue to monitor LFTs. He is go ing to start a clear liquid diet. He is on Lasix. Monitor electrolytes and is on oxycodone for pain . As for cardiology, the patient with elevated troponin. We will continue to follow closely. The p gurmeet was seen and case discussed with Dr. Smith, discussed with nursing staff. Inessa SUTHERLAND cc: [id number] TT: 09/18/2016 15:04:52 Confirmation # [id number] Dictation # [id number] tn
[2016-09-18] MEDS: oxyCODONE 5 mg Immediate Release Tab PO PRN (15:19)
[2016-09-18 17:20] LABS: INR 1.37 (0.93-1.08); PARTIAL THROMBOPLASTIN TIME 38.3 Seconds (23.7-30.8)
[2016-09-18] MEDS: Heparin25000 units/250ml 1/2NS 25,000 UNITS/250 ML BAG IV PRN (18:10)
--- NOTE | 2016-09-18 20:01 | CON ---
DATE: 09/18/2016 REQUESTING PHYSICIAN: Dr. Dong. REASON FOR CONSULTATION: Elevated troponin, decompensated congestive heart failure. HISTORY OF PRESENT ILLNESS: This is a 71-year-old man well known to me with a history of coronary ar allison disease and severe ischemic cardiomyopathy who was admitted with increasing abdominal discomfort as well as fatigue and dyspnea. 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 A liver biopsy had been p erformed at that time. He was also noted to have cholelithiasis; however, his pain did not appear co nsistent with biliary colic. Since discharge, he has continued to do poorly with worsening appetite and difficulty eating. He states that his symptoms had worsened after meals. He had been placed on amiodarone because of episodes of ventricular tachycardia, which were not appropriately sensed and we re terminated with his defibrillator. He was offered a revision of his defibrillator; however, he re fused at that time. He does have known coronary disease and underwent coronary bypass surgery in . His ejection fraction remains poor. Catheterization in 2013 revealed patent bypass grafts, but a n ejection fraction of 15%. A recent echocardiogram revealed biatrial enlargement, dilated left vent ricle with severely reduced LV systolic function, aortic sclerosis and mild tricuspid regurgitation. PAST MEDICAL HISTORY: Is notable for the problems mentioned above. He is a former smoker. He has s ignificant COPD as well. He underwent a biventricular pacemaker in 2008 and an upgrade to an ICD in 2012. He also has bilateral severe hearing loss and prior gastrointestinal bleeding. 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 CURRENT MEDICATIONS: Include Eliquis 5 mg b.i.d., carvedilol 25 mg b.i.d., Lasix 40 mg daily, K-Dur 20 mEq daily, nortriptyline 25 mg at bedtime, digoxin 0.125 mg daily and Cozaar 50 mg daily. ALLERGIES: HE DEVELOPED A COUGH WITH KIRT INHIBITOR USE AND GYNECOMASTIA WITH SPIRONOLACTONE USE. FAMILY HISTORY: His father from complications of emphysema at the age of 72. Mother at th e age of 40 from a cerebral aneurysm. One brother from myocardial infarction at the age 56 and 2 other brothers are in good health. SOCIAL HISTORY: He is and lives alone. He is retired. He denies alcohol use. He was a sm oker of 1 pack per day for many years, having quit in 2007. REVIEW OF SYSTEMS: A 10 point review of systems is notable mainly for the problems mentioned above. PHYSICAL EXAMINATION: GENERAL: He is a thin, chronically ill-appearing middle-aged man. VITAL SIGNS: His blood pressure is 94/60 with a pulse of 60 in atrial pacing, respirations are 16. He is afebrile. HEENT: Temporal wasting is noted. Pupils equal and reactive to light and accommodation. NECK: Supple. No JVD present. CHEST: Bilateral scattered rhonchi heard. No rales noted. HEART: PMI displaced laterally with very soft and distant sounds noted. Systolic murmur is present in left sternal border. ABDOMEN: Soft with moderate tenderness of his right upper quadrant and hepatomegaly noted. Bowel so unds are present. EXTREMITIES: Has 2+ leg edema present. SKIN: Warm and dry. PSYCHIATRIC: Moderate anxiety, but otherwise normal mood and affect. NEUROLOGIC: No gross motor or sensory deficits appreciable. DIAGNOSTIC DATA: Sodium is 134, potassium 5.0, BUN and creatinine are 59 and 1.8, glucose is 128 and troponin 0.22. White count 12.2, hemoglobin and hematocrit 13 and 38.8 with a platelet count of 147 ,000. BNP is 2570. AST and ALT of 120 and 107 with an alkaline phosphatase of 271. Albumin is 2.2. Electrocardiogram reveals a dual chamber paced rhythm. Chest x-ray reveals an enlarged cardiac hannah houette with an ICD system in place. Lung krishnan appear relatively clear. Abdominal ultrasound repo rtedly shows evidence of gallbladder sludge, an echogenic liver with evidence of a thrombosed portal vein. IMPRESSION: 1. Abdominal pain suspicious for passive congestion due to severe left ventricular dysfunction as we ll as recent drug-induced hepatitis due to amiodarone use. 2. Severe left ventricular dysfunction secondary to ischemic cardiomyopathy. 3. Coronary artery disease, status post remote bypass surgery. 4. Ventricular tachycardia status post implantable cardioverter defibrillator implant with inadequat e detection and termination of ventricular tachycardia recently. 5. Worsened renal insufficiency. 6. Mildly elevated troponin, possibly due to decreased renal clearance. RECOMMENDATIONS: IV fluids will be discontinued at the present time. Diuretic therapy will be resum ed. A GI evaluation regarding his liver issues as well as portal vein thrombosis is pending. In gen era, the patient appears to be at relatively high risk for any intervention at this time. He has vi gorously expressed the preference to have his gallbladder removed; however, it has been explained to him in detail that this is likely not the cause of his pain will pain likely not relieve his current symptoms and also it would be a fairly risky procedure given his poor left ventricular function and C OPD. Thank you for this consultation. I will be happy to continue to follow along through his hospital co rosita as needed. Ankit Montero MD cc: [id number] TT: 09/18/2016 20:00:32 Confirmation # [id number] Dictation # [id number] selena
--- NOTE | 2016-09-19 05:43 | PN ---
DATE: 09/18/2016 ADDENDUM This is an addendum to the GI progress report dictated by PAULIE Ng. The patient was seen and evaluated earlier. The patient complains of similar discomfort in the epiga stric area, especially postprandially. On a liquid diet now. The patient's sonogram was reviewed an d discussed with Dr. Burton Bush. The concern is portal vein thrombosis. Otherwise, the findings ar e the same. The patient does have gallstones and CBD is normal. The patient has multiple comorbidit ies. The epigastric and upper abdominal pain could be secondary to the hepatic congestion plus amiod arone-induced hepatitis. However, the patient did have problem of portal vein thrombosis, which appe ars to be acute. The patient was on Eliquis before. This has been on hold. We will start the patie nt on IV heparin. Discussed with Dr. Burton Bush the vascular radiologist. The plan is to continue the anticoagulation. Consider repeating the CT. We will also discuss with hematology regarding the hypercoagulable workup for hypercoagulability. The patient was seen and evaluated by Dr. Vanessa alcocer ng the previous admission. Thank you very much for allowing us to participate in the care of the patient. Kiana Smith MD cc: [id number] TT: 09/19/2016 05:43:07 Confirmation # [id number] Dictation # [id number] selena
[2016-09-19 07:50] LABS: HEMATOCRIT 41.8 % (42.0-52.0); MEAN CORPUSCULAR HEMOGLOBIN 32.5 pg (25.0-35.0); MEAN CORPUSCULAR HGB CONC 34.2 g/dl (31.0-37.0); MEAN PLATELET VOLUME 12.4 fl (7.0-11.0); WHITE BLOOD COUNT 15.6 10^3/ul (4.5-11.0)
[2016-09-19 08:09] LABS: ALB/GLOB RATIO 0.7 (1.1-1.8); BILIRUBIN,TOTAL 1.9 mg/dL (0.2-1.3); CALCIUM 7.9 mg/dL (8.4-10.5); MAGNESIUM 2.5 mg/dL (1.7-2.2); PHOSPHOROUS 3.7 mg/dL (2.5-4.5); TOTAL PROTEIN 5.5 g/dL (5.8-8.3)
[2016-09-19] MEDS: oxyCODONE 5 mg Immediate Release Tab PO PRN (08:35)
--- NOTE | 2016-09-19 10:58 | PN ---
DATE: 09/19/2016 SUBJECTIVE: The patient has no complaints of any chest pain or shortness of breath, no headaches. PHYSICAL EXAMINATION: VITAL SIGNS: Temperature is 97.4, pulse of 70, blood pressure 110/61, respirations 18. GENERAL: The patient comfortable, in no acute distress. HEENT: Anicteric sclerae. Moist mucosa. NECK: No JVD or adenopathy. CARDIAC: S1/S2. No murmurs. No rubs. Regular. RESPIRATORY: Clear to auscultation bilaterally. No wheezes, rales, or rhonchi. Good air entry. ABDOMEN: Bowel sounds are positive, soft, nontender, and nondistended. EXTREMITIES: No edema. Has 1+ pulses. LABS: White count of 15.6. Creatinine 1.5. ASSESSMENT: 1. Portal vein thrombosis. 2. Amiodarone-induced hepatitis. 3. Hepatomegaly. 4. Splenomegaly. 5. Malnutrition, moderate, with an albumin of 2.2. 6. Transaminitis. 7. Coagulopathy. 8. Pacemaker. PLAN: The patient is currently on heparin. He is going to continue Lasix. The patient is on a liqu id diet. He is being followed by Dr. Burton Bush. I did speak to him yesterday regarding the patien t's portal vein thrombosis. Overall, prognosis is guarded. I will get Dr. Mendez to evaluate the p atient as well. He did have a full evaluation on the previous admission where a liver ultrasound was done. There was good hepato flow in the portal vein has no DVT was seen. It is unusual for a throm bus to be formed while the patient has been compliant with Eliquis. Silvino Dong MD cc: [id number] TT: 09/19/2016 10:58:08 Confirmation # [id number] Dictation # [id number] charla
[2016-09-19] MEDS: Heparin25000 units/250ml 1/2NS 25,000 UNITS/250 ML BAG IV PRN ×2 (11:06→19:49)
--- NOTE | 2016-09-19 13:10 | PN ---
DATE: 09/19/2016 SUBJECTIVE: The patient is seen lying in bed on telemetry. He continues to have intermittent abdomi nal discomfort. His appetite is poor. Some edema persists. He has been started on intravenous hepa rin because of the finding of portal vein thrombosis on CT and abdominal ultrasound. CURRENT MEDICATIONS: Include IV heparin, Lasix 40 mg daily, and oxycodone. The rest of his oral med ications including carvedilol, losartan, digoxin have been placed on hold because of low blood pressu re. OBJECTIVE: GENERAL: He is a chronically ill appearing middle-aged man. VITAL SIGNS: His blood pressure is 110/60 with a pulse of 70 with a paced rhythm, respirations are 2 2. He is afebrile. HEENT: No JVD. CHEST: Bilateral scattered rhonchi with no rales. HEART: PMI displaced laterally. Heart tones are distant and soft. Systolic murmur is present at lo wer left sternal border and apex. ABDOMEN: Soft, protuberant with moderate right upper quadrant tenderness. Bowel sounds are present. EXTREMITIES: 1+ leg edema. DIAGNOSTIC DATA: Potassium 5.0, BUN and creatinine are 54 and 1.5. White count 15.6, hemoglobin and hematocrit 14.3 and 41.8 with a platelet count of 148,000. AST and ALT 126 and 106 with an alkaline phosphatase of 310. IMPRESSION: 1. Portal vein thrombosis, apparently new. 2. Severe left ventricular systolic dysfunction secondary to ischemic cardiomyopathy. 3. Amiodarone related hepatitis. 4. Hepatosplenomegaly. 5. Renal insufficiency. 6. Status post coronary disease, status post bypass surgery. 7. Status post implantable cardioverter-defibrillator implant. RECOMMENDATIONS: Continue diuresis is advised. IV heparin should be continued for now. Management options for his portal vein thrombosis appear limited. His prognosis appears extremely poor given al l the above. Comfort care should continue. If his prognosis worsens, consideration should be given to a deactivation of his ICD. His daughter, Joyce, cell phone number [phone] was contacted carole beard today and all the above was reviewed in detail with her. We will continue to follow along through his hospital course and make further recommendations as appropriate. Ankit Montero MD cc: [id number] TT: 09/19/2016 13:10:19 Confirmation # [id number] Dictation # [id number] jn
[2016-09-19] MEDS: Digoxin 125 mcg (0.125 mg) Tab PO SCH (14:14)
[2016-09-19 14:15] VITALS: PULSE 70
--- NOTE | 2016-09-19 14:41 | CON ---
DATE: 09/19/[address] Mendez. CHIEF COMPLAINT: Weakness, abdominal pain. HISTORY OF PRESENT ILLNESS: The patient is a 71-year-old male brought to Emergency Room, by his danaomy hter I believe, complaining of worsening weakness initially reported with abdominal discomfort every time he eats he reports. He also reports that he had a fall 3 days prior with a contusion to the rig ht forehead and also ecchymotic changes on his lower extremities as he scraped his knees. With this, he is now sitting up in bed, reporting that he is in no acute distress this visit with his only comp laint with solid food, he has discomfort in the abdominal area. We are now consulted as per Dr. Tegan washington from Dr. Dong for portal vein thrombosis which was picked up on an ultrasound of the abdomen with Dr. Smith recommending hypercoag workup with Dr. Burton Bush also to see the patient. With t his, the patient is otherwise in no acute distress, here for evaluation and treatment. ALLERGIES: No known allergies. MEDICATIONS: Include Eliquis, carvedilol, Lasix, potassium, nitroglycerin, Pamelor, Cozaar, digoxin. PAST MEDICAL HISTORY: Significant for stenting x 9 between [address] Burton Khalil, CABG 5-v essels, mitral valve repair by Dr. Pablo Sharp 2008, [facility] pacemaker in 2008 with pacer defibri llator in 2012. With this, the patient is also reporting a giant cell tumor of the right elbow histo ry. FAMILY HISTORY AND SOCIAL HISTORY: He denies smoking or alcohol use. REVIEW OF SYSTEMS: Essentially negative to questioning except as above. PHYSICAL EXAMINATION: VITAL SIGNS: Temperature 97.4, pulse 70, respirations 18, blood pressure 118/63, pulse ox 96%. HEENT: Unremarkable with abrasion to the right forehead. NECK: Supple. HEART: Regular rate. Paced. LUNGS: Clear. ABDOMEN: Soft. Minimal tenderness to gentle palpation right upper quadrant. EXTREMITIES: No edema. SKIN: Warm, dry, clear. NEUROLOGIC: Awake, alert, and oriented x 3. LABORATORY DATA: The patient's labs were done, white blood cell count 15.6, hemoglobin of 14.3, vinita tocrit 41.8, platelet count 148,000. Chem metabolic panel within normal limits except for BUN of 54, creatinine of 1.5. It was initially a BUN of 63, creatinine of 2.0. He also had a troponin of 0.22 on the 09/17 and 09/18/2016. His T. bili today is 1.9, on admission it was 2.4. AST of 126, ALT of 1 06 with an alkaline phosphatase of 310, total protein 5.5, albumin of 2.3. The patient's PTT on IV heparin is greater than 180, will be monitored and corrected according to pro tocols. The patient's urine showed trace ketones, trace protein. The patient's testing included a chest x-ray done 2 days ago, it was read as dual lead pacemaker, no active disease. An EKG done 2 days ago was read as AV sequential and dual chamber electronic pacemak er. 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 X-ray of the ship and pelvis was done 2 days ago, it was read as negative study. X-ray of tamika dominguez femur on the left showed unremarkable x-rays of the femur; however, he did have an ultrasound of t alberto abdomen done yesterday it was read as impression perihepatic ascites, echogenic liver may be seen in the setting of hepatic parenchymal disease or fatty infiltration, evidence of thrombosed portal ve in, cholelithiasis, gallbladder sludge, gallbladder wall appears mildly thickened, pericholecystic ed bebeto. Positive ultrasound of sonographic Delacruz sign as per ____, correlate clinically for acute chol ecystitis, splenomegaly. Evidence of thrombosis portal vein without demonstrated flow. No focal hep atic mass identified. No intrahepatic bile duct dilatation. ASSESSMENT: Abdominal pain, thrombosed portal vein, perihepatic ascites, hepatosplenomegaly, questio nable amiodarone-induced hepatitis, malnutrition, coagulopathy, pacer, atherosclerotic cardiovascular disease, status post 9 stents between 1996 and 2007, pacer defibrillator. The patient did have a bone marrow biopsy done recently, does not reveal any evidence of lymphoma ___ _ lymphoproliferative disorder, myeloproliferative disease or myelodysplastic syndrome. The patient is known to have enlarged retroperitoneal lymph nodes, possibly inflammatory, questionable Wisdom's esophagus. The patient does have peptic ulcer disease, antral erosions and abnormal liver function tests. PLAN: After conversation with Dr. Mendez will be to do a hypercoagulable workup. We will restart h is Cozaar, nortriptyline and other medications with followup as per Dr. Montero, Dr. Smith and Dr Jose Bush with anticoagulation to continue with heparin in the interim. We will monitor clinical ly and with labs. Titi Aguilar MD cc: [id number] TT: 09/19/2016 14:41:25 Confirmation # [id number] Dictation # [id number] jn
--- NOTE | 2016-09-19 21:20 | PN ---
DATE: 09/19/2016 SUBJECTIVE: This patient was seen and evaluated earlier. Discussed with Dr. Montero and also with Dr. Dong. The patient still complains of some epigastric discomfort, mainly after eating. The patient has been on heparin. PHYSICAL EXAMINATION: VITAL SIGNS: His temperature is 97.6, pulse 70, blood pressure is 122/59. HEENT: Anicteric. NECK: Supple. HEART: S1, S2. LUNGS: Bilateral air entry present, slightly reduced in the base. ABDOMEN: Soft, hepatomegaly present. There is tenderness in the epigastric area. EXTREMITIES: No cyanosis, no clubbing. LABORATORY DATA: Hemoglobin 14.3, hematocrit 41.8. WBC is 15.6, platelets 148. Chemistry, total bilirubin 1.9. AST 126, ALT 106. Alkaline phosphatase 310. Troponin is also elevated at 0.22. IMPRESSION: This is a 71-year-old patient admitted with abdominal pain. The patient has a history of ischemic cardiomyopathy with paroxysmal atrial fibrillation, was on Eliquis before. The patient has gallstones, but common bile duct was normal on ultrasound. The patient was found to have portal vein thrombosis. His other problems include amiodarone-induced hepatitis, chronic kidney disease, coronary artery disease, status post bypass, status post defibrillator placement. RECOMMENDATIONS: I had a detailed discussion with Dr. Burton Bush earlier and also Dr. Montero. The plan is to continue the IV heparin. I have discussed with the patient's daughter also at length. The patient has a gallstone. It appears to be not contributing to the present problem. Overall, the patient's prognosis is very guarded. Thank you very much for allowing us to participate in the care of the patient. Kiana Smith MD cc: [id number] TT: 09/19/2016 21:19:54 Confirmation # [id number] Dictation # [id number] dina GRANDE
[2016-09-20] MEDS: Heparin25000 units/250ml 1/2NS 25,000 UNITS/250 ML BAG IV PRN (06:59)
[2016-09-20 08:39] LABS: ADD MANUAL DIFF? NO
[2016-09-20 08:42] LABS: BASO # 0.02 K/mm3 (0.0-2.0); BASO % 0.1 % (0.0-3.0); EOS # 0.6 (0.0-0.7); GRAN # 13.22 (1.4-6.5); GRAN % 84.2 % (50.0-68.0); HEMATOCRIT 42.6 % (42.0-52.0); LYMPH % 6.5 % (22.0-35.0); MEAN CELL VOLUME 94.7 fL (80.0-105.0); MEAN CORPUSCULAR HGB CONC 33.8 g/dl (31.0-37.0); MEAN PLATELET VOLUME 11.6 fl (7.0-11.0); MONO # 0.8 (0.1-0.6); MONO % 5.2 % (1.0-6.0); PLATELET COUNT 176 10^3/uL (120.0-450.0); WHITE BLOOD COUNT 15.7 10^3/ul (4.5-11.0)
--- NOTE | 2016-09-20 08:46 | PN ---
DATE: 09/20/2016 SUBJECTIVE: The patient is seen lying in bed on telemetry. He continues to have postprandial abdomi nal pain. He remains on liquid diet. He also has some persistent edema. He is very despondent rega rding his current condition and problems. CURRENT MEDICATIONS: Include carvedilol 25 mg b.i.d., IV heparin, digoxin 0.125 mg daily, Lasix 40 m g once daily, and Pamelor, as well as oxycodone. OBJECTIVE: GENERAL: He is a middle-aged man who appears chronically ill. VITAL SIGNS: Blood pressure is 106/60 with pulse of 70 with a paced rhythm. Respirations are 14. H e is afebrile. HEENT: No JVD. CHEST: A few scattered rhonchi heard. HEART: PMI displaced laterally, soft tones noted. ABDOMEN: Protuberant. Bowel sounds are present. Right upper quadrant pain persists. EXTREMITIES: 1+ ankle edema. DIAGNOSTIC DATA: Morning labs are pending. His last PTT was 63.6. IMPRESSION: 1. Abdominal pain, felt likely due to portal vein thrombosis, which appears to be of recent onset. 2. Drug-induced hepatitis secondary to amiodarone. 3. Severe left ventricular systolic dysfunction secondary to ischemic cardiomyopathy. 4. Chronic renal insufficiency. 5. Coronary artery disease, status post prior bypass surgery and percutaneous coronary intervention. 6. Status post implantable cardioverter-defibrillator implant. RECOMMENDATIONS: Current medications should be continued. IV heparin will be continued for now. Pa in control will be optimized. I had a lengthy discussion with his daughter, Joyce, yesterday via phon e regarding her father's multiple medical problems and current condition and prognosis. At this time , comfort care appears most appropriate. We will continue to follow along and adhere to any further recommendations from Dr. Smith and Dr. Burton Bush. Ankit Montero MD cc: [id number] TT: 09/20/2016 08:45:21 Confirmation # [id number] Dictation # [id number] jn
[2016-09-20 09:09] LABS: ALB/GLOB RATIO 0.7 (1.1-1.8); ALKALINE PHOSPHATASE 321 U/L (38-133); ALT/SGPT 124 U/L (7-56); AST/SGOT 145 U/L (15-59); BILIRUBIN,TOTAL 2.8 mg/dL (0.2-1.3); BLOOD UREA NITROGEN 49 mg/dL (7-21); CALCIUM 8.3 mg/dL (8.4-10.5); CARBON DIOXIDE 25 mmol/L (21-33); CHLORIDE 103 mmol/L (95-110); GFR AFRICAN-AMERICAN > 60; GLUCOSE,RANDOM 87 mg/dL (70-110); POTASSIUM 4.8 mmol/L (3.6-5.0); SODIUM 135 mmol/L (132-148); TOTAL PROTEIN 6.1 g/dL (5.8-8.3)
[2016-09-20] MEDS: oxyCODONE 5 mg Immediate Release Tab PO PRN ×2 (11:12→16:53)
[2016-09-20] MEDS: Digoxin 125 mcg (0.125 mg) Tab PO SCH (14:59)
--- NOTE | 2016-09-20 15:00 | PN ---
DATE: 09/20/2016 This is the patient's hospital visit on the telemetry floor. For Dr. Mendez. SUBJECTIVE: The patient is a 71-year-old male brought by his daughter for falls at home, abdominal d iscomfort, postprandial pain with weight loss recently. With this, the patient is now seen sitting u p in bed. He has significant profound compromised hearing with the patient known to have portal vein thrombosis, for which he is on IV heparin now. He developed this despite being on Eliquis with hype rcoag workup, labs being sent for review upon return. Otherwise, the patient is in no acute distress at this time. After conversation with Dr. Smith, we will change his diet to full liquids as he d oes not tolerate solid food. As of this morning, pain recurred. He is not a candidate for hyperal. Therefore, we will give full liquids with oral supplements with Boost or Ensure. Also, his digoxin level is mildly elevated. We will hold digoxin and repeat the labs in the morning after conversation with Dr. Montero yesterday. We will also hold his blood pressure medication as his blood pressure has been low with parameters pl aced on his carvedilol as he reports if he does not take his Coreg and Cozaar regularly, his pacer go es off. He is seen with his daughter at the bedside. OBJECTIVE AND PHYSICAL EXAMINATION: VITAL SIGNS: Temperature 97.2, pulse 71, respirations 16, blood pressure 102/57, pulse ox 96%. HEENT: Unremarkable with significantly compromised hearing. NECK: Supple. HEART: Regular rate, occasional ectopic beat. LUNGS: Occasional rhonchi. ABDOMEN: Soft. Minimal tenderness to right upper quadrant. EXTREMITIES: +1 edema of the feet bilaterally. NEUROLOGIC: Awake and alert with decreased hearing. SKIN: Otherwise, warm, dry and clear with ecchymotic changes to his right scalp and knees. The patient's labs were done. White blood cell count of 15.7, hemoglobin 14.4, hematocrit 42.6, plat elet count 176,000. A chem metabolic panel showing a T-bili of 2.8, AST of 145, ALT of 124, minimall y rising from previous values, possibly due to dietary changes. Alkaline phosphatase 321, BUN of 49, creatinine of 1.4. His PTT was 55.5. Digoxin level of 2.4, which digoxin is now on hold with a rep eat in the morning. 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 After conversation with Dr. Mendez, we will continue his present medical regimen with his Coreg rest arted with parameters. Digoxin is now on hold. Heparin IV to continue along with Lasix on a daily b asis. His Pamelor was restarted, which may be contributing to his abnormal LFTs. We will hold the P amelor in the interim with famotidine low-dose to be restarted if okay with Dr. Smith. Prognosis for this patient is guarded. Other testing was sent including a hypercoag workup, which we will irasema tor upon return. We will advance his diet to full liquids along with oral supplements as he is not a candidate for hyperal at this point. Titi Aguilar MD cc: [id number] TT: 09/20/2016 14:59:28 Confirmation # [id number] Dictation # [id number] en
--- NOTE | 2016-09-20 17:12 | PN ---
DATE: 09/20/2016 SUBJECTIVE: The patient has no complaints of any chest pain, no shortness of breath, no headaches or dizziness. The patient says he continues to have epigastric pain when he eats, but it has been mild because he has been on a liquid diet. He is concerned about not being able to go the bathroom witho ut the bed alarm going off. I advised him that he is a fall risk and this is part of preventing his falls. I had also spoke to the patient's daughter. The patient is going to be a DNR. PHYSICAL EXAMINATION: VITAL SIGNS: Temperature is 97.2, pulse is 71, blood pressure 102/57, respirations 16. GENERAL: The patient comfortable, in no acute distress. HEENT: Anicteric sclerae. Moist mucosa. NECK: No JVD or adenopathy. CARDIAC: S1/S2. No murmurs. No rubs. Regular. RESPIRATORY: Clear to auscultation bilaterally. No wheezes, rales, or rhonchi. Good air entry. ABDOMEN: Bowel sounds are positive, soft, nontender, and nondistended. EXTREMITIES: No edema. Has 1+ pulses. LABS: White count of 15.7, hemoglobin is 14.4, creatinine is 1.4. ASSESSMENT: 1. Portal vein thrombosis. 2. Amiodarone-induced hepatitis. 3. Hepatomegaly. 4. Splenomegaly. 5. Malnutrition, moderate. 6. Transaminitis. 7. Coagulopathy. 8. Pacemaker. 9. Acute kidney injury. PLAN: The patient is currently comfortable. The patient has a poor prognosis. The patient's daught er is aware. The patient is requesting to be placed on a regular diet. I did do this, but it was ch anged back to a liquid diet. The patient is on heparin. He is going to continue with Lasix. He is on Pepcid. The patient's creatinine is 1.4. His acute kidney injury has improved as well. Silvino Dong MD cc: [id number] TT: 09/20/2016 17:11:54 Confirmation # [id number] Dictation # [id number] mn
[2016-09-21] MEDS: oxyCODONE 5 mg Immediate Release Tab PO PRN ×2 (07:43→16:56)
[2016-09-21 07:51] LABS: ADD MANUAL DIFF? NO
[2016-09-21 07:54] LABS: BASO # 0.03 K/mm3 (0.0-2.0); BASO % 0.2 % (0.0-3.0); EOS # 0.6 (0.0-0.7); EOS % 4.3 % (1.5-5.0); GRAN # 11.38 (1.4-6.5); HEMATOCRIT 37.8 % (42.0-52.0); LYMPH % 7.2 % (22.0-35.0); MEAN CELL VOLUME 94.3 fL (80.0-105.0); MEAN CORPUSCULAR HEMOGLOBIN 32.4 pg (25.0-35.0); MEAN CORPUSCULAR HGB CONC 34.4 g/dl (31.0-37.0); MEAN PLATELET VOLUME 12.2 fl (7.0-11.0); MONO # 0.7 (0.1-0.6); MONO % 5.3 % (1.0-6.0); PLATELET COUNT 145 10^3/uL (120.0-450.0); RED CELL DISTRIBUTION WIDTH 16.9 % (11.5-14.5); WHITE BLOOD COUNT 13.7 10^3/ul (4.5-11.0)
--- NOTE | 2016-09-21 08:03 | PN ---
DATE: 09/21/2016 SUBJECTIVE: The patient has no complaints of any chest pain or shortness of breath or headaches. PHYSICAL EXAMINATION: VITAL SIGNS: Temperature 98, pulse is 70, blood pressure is 97/50, respirations 20. GENERAL: The patient comfortable, in no acute distress. HEENT: Anicteric sclerae. Moist mucosa. NECK: No JVD or adenopathy. CARDIAC: S1/S2. No murmurs. No rubs. Regular. RESPIRATORY: Clear to auscultation bilaterally. No wheezes, rales, or rhonchi. Good air entry. ABDOMEN: Bowel sounds are positive, soft, nontender, and nondistended. EXTREMITIES: No edema. Has 1+ pulses. LABORATORY DATA: White count of 15.7. ASSESSMENT: 1. Portal vein thrombosis. 2. Amiodarone-induced hepatitis. 3. Hepatomegaly. 4. Splenomegaly. 5. Malnutrition, moderate. 6. Transaminitis. 7. Coagulopathy. 8. Pacemaker. 9. Acute kidney injury. 10. Do not resuscitate/do not intubate. PLAN: The patient is currently comfortable. He is on carvedilol. The patient is on anticoagulation with heparin. He is on digoxin. The patient is on Percocet for pain. The patient is going to cont inue with Pepcid. Will discontinue telemetry. Silvino Dong MD cc: [id number] TT: 09/21/2016 08:03:28 Confirmation # [id number] Dictation # [id number] mn
[2016-09-21 08:08] LABS: ALB/GLOB RATIO 0.7 (1.1-1.8); ALKALINE PHOSPHATASE 286 U/L (38-133); ALT/SGPT 113 U/L (7-56); AST/SGOT 115 U/L (15-59); BILIRUBIN,TOTAL 2.8 mg/dL (0.2-1.3); BLOOD UREA NITROGEN 46 mg/dL (7-21); CALCIUM 8.3 mg/dL (8.4-10.5); CARBON DIOXIDE 28 mmol/L (21-33); CHLORIDE 103 mmol/L (98-107); GFR AFRICAN-AMERICAN > 60; GLUCOSE,RANDOM 106 mg/dL (70-110); POTASSIUM 4.6 mmol/L (3.6-5.0); SODIUM 135 mmol/L (132-148); TOTAL PROTEIN 5.7 g/dL (5.8-8.3)
--- NOTE | 2016-09-21 08:20 | CP.PCM.PN ---
Subjective - Date & Time of Evaluation Date of Evaluation: 09/21/16 Time of Evaluation: 07:00 - Subjective Subjective: Stable on 2R. + abd. pain. No CP or SOB. V/S noted. AV paced PE: Lungs: clear Cor.: S1S2 Abd.: tender Ext.: mild edema Neuro.: alert Labs noted: Cr.= 1.3, Dig. = 2.1, PTT pending Objective - Vital Signs/Intake and Output Vital Signs (last 24 hours): Temp Pulse Resp BP Pulse Ox 98 F 70 20 97/50 L 96 09/21/16 05:34 09/21/16 05:34 09/21/16 05:34 09/21/16 05:34 09/21/16 05:34 Intake and Output: 09/21/16 09/21/16 06:59 18:59 Intake Total 593 Output Total 400 Balance 193 - Medications Medications: Current Medications Carvedilol (Coreg) 25 mg PO BID [facility] Last Admin: 09/20/16 18:02 Dose: 25 mg Digoxin (Lanoxin) 0.125 mg PO 1400 [facility] Last Admin: 09/20/16 14:59 Dose: Not Given Famotidine (Pepcid) 20 mg PO DAILY [facility] Last Admin: 09/20/16 18:05 Dose: 20 mg Furosemide (Lasix) 40 mg IV DAILY [facility] Last Admin: 09/20/16 10:35 Dose: 40 mg Heparin Sodium/Sodium Chloride (Heparin 61128 Units/250ml 1/2 Normal Saline) 25 ,000 units in 250 mls @ 11.716 mls/hr IV .[id number] PRN; Protocol; 18 UNITS/KG/HR PRN Reason: ADJUST RATE PER PROTOCOL Last Admin: 09/20/16 06:59 Dose: 7.22 units/kg/hr, 4.7 mls/hr Nortriptyline HCl (Pamelor) 25 mg PO HS [facility] Last Admin: 09/19/16 22:07 Dose: 25 mg Oxycodone HCl (Oxycodone Immediate Release Tab) 5 mg PO Q4H PRN PRN Reason: Pain, moderate (4-7) Last Admin: 09/21/16 07:43 Dose: 5 mg - Labs Labs: 09/21/16 07:30 09/20/16 08:37 PT 14.8 Seconds (9.9-11.8) H 09/18/16 17:00 INR 1.37 (0.93-1.08) H 09/18/16 17:00 APTT 55.5 Seconds (23.7-30.8) H 09/20/16 08:37 Assessment and Plan - Assessment and Plan (Free Text) Plan: Assessment: Abd. 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 Dong Await PTT Analgesia D/C digoxin.
--- NOTE | 2016-09-21 12:59 | PN ---
DATE: 09/20/2016 This patient was seen and evaluated earlier today. Discussed with Dr. Titi Aguilar this 71-year- old patient. The patient is still complaining of discomfort in the epigastric area especially after eating. PHYSICAL EXAMINATION: VITAL SIGNS: Temperature is 98.____, pulse 70, blood pressure is 103/63. HEENT: ____. Anicteric. Pupils are equal and reactive to light and accommodation. NECK: Supple. HEART: S1, S2 heard. LUNGS: Bilateral air entry present, slightly reduced in base. ABDOMEN: Soft. There is dullness present at the epigastric area with a little hepatomegaly. EXTREMITIES: Bilateral edema present. NEUROLOGIC: Alert, oriented. LABORATORY DATA: Hemoglobin 14.4, hematocrit 42.6, WBC of 15.7, platelets 176. BUN 49, creatinine is 1.4. LFTs: Total bilirubin is 2.8 (it is increased), AST 145, ALT is 124, alkaline phosphatase 3 21. IMPRESSION: This is a 71-year-old patient with paroxysmal atrial fibrillation, on Eliquis; congestiv e heart failure, admitted with worsening of the abdominal pain. Ultrasound showed portal vein thromb osis; this appears to be acute. Presently on IV heparin. The Eliquis has been discontinued. Histor y of gastric bypass, coronary artery disease, status post gastric bypass, status post defibrillator p lacement. The patient had liver biopsy done for hepatosplenomegaly with elevated the LFTs and steroidal induced hepatitis possibly related to amiodarone which has been discontinued. History of gallstones. Repeat ultrasound showed normal common bile duct. Elevated LFTs are less lik mercedes related to gallstones. The most likely cause to be considered is hepatic congestion plus drug-in duced hepatitis, and also partially related to the portal vein thrombosis. The concern is ____. RECOMMENDATIONS: 1. Continue the IV heparin. Would consider repeating the CT with only p.o. contrast in view of the renal insufficiency. The patient's GFR calculated was only 50%. It is reasonable to consider only r epeating a CT with p.o. contrast. 2. Advised the patient to be on a full liquid diet with nutritional supplement such as Boost or Ensu re. The patient is not able to tolerate regular food which causes him more discomfort and bloating. The overall prognosis of the patient remains poor. A detailed discussion was held with the patient's daughter. Presently, the patient is a DNR/DNI. Thank you very much for allowing us to participate in the care of the patient. Will continue to clos mercedes follow up his care and suggest further recommendations based on clinical course. Kiana Smith MD cc: [id number] TT: 09/21/2016 09:16:14 Confirmation # [id number] Dictation # [id number] mn
--- NOTE | 2016-09-21 13:57 | PN ---
DATE: 09/21/2016 SUBJECTIVE: Seen and examined at the bedside earlier today. The daughter was present, the patient i s asleep but arousable, still complains of pain after eating. No reports of nausea, vomiting. PHYSICAL EXAMINATION: VITAL SIGNS: Temperature is 98, blood pressure is 96/60, pulse 70, respirations 20, 96 nasal cannula . LABORATORY DATA: WBC is 13.7, H and H 13.0 and 37.8, platelets 145. The patient remains on heparin drip per protocol. PTT at 9:45 is 53.7. Sodium 135, K is 4.6, BUN 46, creatinine is 1.3. Total joy irubin is 2.8, AST 115, ALT 113, alkaline phosphatase 286, digoxin is 2.1. This is slightly better c ompared to yesterday's at 2.4. PHYSICAL EXAMINATION: HEENT: Sclerae is icteric. NECK: Supple. CARDIAC: S1, S2. LUNGS: Sounds with decreased breath sounds. Good air entry, no rales or wheeze. ABDOMEN: With bowel sounds, soft, positive epigastric tenderness. No rebound, guarding. ASSESSMENT: The portal vein thrombosis on heparin drip per protocol. He has hepatosplenomegaly, ami odarone drug-induced hepatitis, transaminitis, history of pacemaker and acute renal injury. PLAN: Continue heparin drip per protocol. Monitor for GI bleed. Continue the Percocet for pain. Josette hall is on Pepcid p.o. daily. Discussed with nursing staff Pepcikellee chow. The patient is also on oxycodo ne for pain. The patient is DNR and DNI now. The patient was seen and case discussed with Dr. Den al. Inessa SUTHERLAND cc: [id number] TT: 09/21/2016 13:56:54 Confirmation # [id number] Dictation # [id number] an
--- NOTE | 2016-09-21 18:09 | PN ---
DATE: 09/21/2016 This is the patient's hospital visit on the medical floor. For Dr. Mendez. SUBJECTIVE: The patient is a 71-year-old male seen sitting up in bed, reporting that even though he is on a full liquid diet with supplements the pain in his abdomen still continues postprandially, josue n if he drinks water. He is scheduled for a CT scan, he reports, with further recommendations as per further testing. He continues on heparin IV, with the patient now a DNR/DNI, as per his and family members' request. OBJECTIVE AND PHYSICAL EXAMINATION: VITAL SIGNS: Temperature 98, pulse 70, respirations 20, blood pressure 96/60, pulse ox 96%. HEENT: Unremarkable with poor hearing. NECK: Supple. HEART: Regular rate, occasional ectopic beat. LUNGS: Clear. ABDOMEN: Minimal tenderness to the right upper quadrant to gentle palpation. EXTREMITIES: No edema. SKIN: Warm, dry, and clear. NEUROLOGIC: Awake, alert, and oriented x 3. LABORATORY DATA: The patient's labs were done. White blood cell count of 13.7; hemoglobin 13.0; hem atocrit 37.8; platelet count 145,000; with a chem metabolic panel showing a T-bili of 2.8, ALT of 113 , AST of 115, alk phos 286, BUN of 46, with a normal creatinine of 1.3. Digoxin of 2.1. His PTT was 53.7 as he is on IV heparin. ASSESSMENT: For this patient is that of acute portal vein thrombosis, despite being on Eliquis, amio darone-induced hepatosplenomegaly, coagulopathy, status post pacer defibrillator, acute kidney injury , improving, malnutrition, hearing loss, arteriosclerotic cardiovascular disease, status post stent p lacement, peptic ulcer disease, gastric erosions. PLAN: After conversation with Dr. Smith and Dr. Mendez, we will continue the present medical reg imen, await for labs that were sent regarding hypercoag workup. Heparin is to continue IV. The wojciech ent is now DNR/DNI with prognosis for this patient guarded. He is not a candidate for hyperal with t he patient still developing pain on a full liquid diet. Analgesics help his pain and we will continu e this with oxycodone, with his hypertension medicines with parameters. With the patient's pressure being compromised, we will hold his Pamelor, also, at this point. Titi Aguilar MD cc: [phone] TT: 09/21/2016 18:09:06 Confirmation # [id number] Dictation # [id number] dn
--- NOTE | 2016-09-21 23:25 | PN ---
DATE: 09/21/2016 ADDENDUM This is an addendum to the GI progress report dictated by Inessa Potts NP. I discussed with the patient's daughter who was at bedside. The patient is on IV heparin. Would request for CT scan of the abdomen and pelvis with only oral contrast to further evaluate. We will discuss with Dr. Mendez and also with Dr. Burton Bush after review of the repeat CT regarding the anticoagulation and the further vascular management. Kiana Smith MD cc: [id number] TT: 09/21/2016 23:24:23 Confirmation # [id number] Dictation # [id number] MTDD
[2016-09-22 05:28] LABS: HOMOCYSTEINE 19.1 umol/L (<11.4)
[2016-09-22] MEDS ORDERED: Barium Sulfate Susp 2.1% w/v, 2.0% w/w 450 mL Bottle PO ONE (07:05)
--- NOTE | 2016-09-22 07:40 | PN ---
DATE: 09/22/2016 SUBJECTIVE: The patient is comfortable. He has no complaints of any headaches, no chest pain, no sh ortness of breath. PHYSICAL EXAMINATION: VITAL SIGNS: Temperature is 97, pulse of 70, blood pressure is 107/64, respirations 18, O2 saturatio n 94%. GENERAL: The patient comfortable, in no acute distress. HEENT: Anicteric sclerae. Moist mucosa. NECK: No JVD or adenopathy. CARDIAC: S1/S2. No murmurs. No rubs. Regular. RESPIRATORY: Clear to auscultation bilaterally. No wheezes, rales, or rhonchi. Good air entry. ABDOMEN: Bowel sounds are positive, soft, nontender, and nondistended. EXTREMITIES: No edema. Has 1+ pulses. LABORATORIES: Have been reviewed. ASSESSMENT: 1. Portal vein thrombosis. 2. Amiodarone induced hepatitis. 3. Hepatomegaly. 4. Splenomegaly. 5. Malnutrition, moderate. 6. Transaminitis. 7. Coagulopathy. 8. Pacemaker. 9. Acute kidney injury. 10. Do not resuscitate/do not intubate. PLAN: The patient is currently comfortable. He is on carvedilol. He is going to continue with [facility] id. He is on a heparin drip. The patient is on a liquid diet. I will advance his diet to a regular diet to see if he tolerates. I did speak with Dr. Crawley, the patient's primary doctor, to give her an update on the patient's diagnosis and plan of care. Overall prognosis is guarded. The patient is being followed by hematology as well as GI. We will continue heparin. The patient's treatment is d ifficult as the patient has portal vein thrombus that has formed on Eliquis. I am not sure what is t he proper anticoagulation to use or treatment plan. We will attempt to see if he can tolerate a regu lar diet. Long-term IV parenteral nutrition also is not a good option given that there are complicat ions that can happen. Silvino Dong MD cc: [id number] TT: 09/22/2016 07:39:45 Confirmation # [id number] Dictation # [id number] en
[2016-09-22] MEDS: Heparin25000 units/250ml 1/2NS 25,000 UNITS/250 ML BAG IV PRN (08:23)
--- NOTE | 2016-09-22 10:41 | PN ---
DATE: 09/22/2016 Seen and examined at the bedside earlier today. He just completed the oral contrast for a repeat fol lowup CT scan of abdomen and pelvis. He still complains of abdominal pain in the epigastric area usu ally after eating. He did tolerate most of his solids. He had some pancakes. No nausea or vomiting . He did have a bowel movement, but it was a little hard. No reports of bleeding. VITAL SIGNS: Temperature is 97.1, blood pressure 103/61, pulse 70, respirations 20, 93 nasal cannula . LABORATORY DATA: WBC is 13.7, H and H is 13.0 and 37.8, platelets are 145. PTT is 44.9. PHYSICAL EXAMINATION: HEENT: Sclerae are a little icteric. NECK: Supple. CARDIAC: S1, S2. LUNGS: Decreased breath sounds. Did not hear any rales or wheeze. ABDOMEN: With bowel sounds, soft, positive epigastric tenderness on palpation. No rebound, guarding . EXTREMITIES: He has some mild positive bilateral edema. NEUROLOGIC: Awake, alert. ASSESSMENT: Portal vein thrombosis, amiodarone-induced hepatitis C, he also has hepatosplenomegaly, transaminitis, history of pacemaker, has acute injury. PLAN: Follow up the repeat CT scan of abdomen and pelvis. Continue his regular diet as tolerated. He complains of hard stool, so we will put him on some mild stool softeners. He is getting oxycodone p.r.n., heparin drip as per protocol. We will continue the Pepcid. The patient was seen and case d iscussed with Dr. Smith. Inessa Potts ENA cc: [id number] TT: 09/22/2016 10:41:32 Confirmation # [id number] Dictation # [id number] dina
[2016-09-22] MEDS: oxyCODONE 5 mg Immediate Release Tab PO PRN ×2 (12:37→16:13)
--- NOTE | 2016-09-22 14:45 | CT ---
PROCEDURE: CT Abdomen and Pelvis without intravenous contrast HISTORY: portal vein thrombosis/FU drug induced hepatitis COMPARISON: 08/10/2016 TECHNIQUE: Without contrast.. Contrast Dose: Radiation dose: Total exam DLP = 524 mGy-cm. This CT exam was performed using one or more of the following dose reduction techniques: Automated exposure control, adjustment of the mA and/or kV according to patient size, and/or use of iterative reconstruction technique. FINDINGS: LOWER THORAX: Unremarkable. LIVER: Unremarkable. No gross lesion or ductal dilatation. GALLBLADDER AND BILE DUCTS: Small gallstones PANCREAS: Unremarkable. No gross lesion or ductal dilatation. SPLEEN: Unremarkable. ADRENALS: Unremarkable. No mass. KIDNEYS AND URETERS: Unremarkable. No hydronephrosis. No solid mass. VASCULATURE: Unremarkable. No aortic aneurysm. Portal venous thrombosis cannot be evaluated on the nonenhanced study. BOWEL: Unremarkable. No obstruction. No gross mural thickening. APPENDIX: Unremarkable. Normal appendix. PERITONEUM: There is moderate to severe ascites which is a new finding. There is also mesenteric edema and subcutaneous edema consistent with anasarca. LYMPH NODES: Unremarkable. No enlarged lymph nodes. BLADDER: Unremarkable. REPRODUCTIVE: Unremarkable. BONES: No acute fracture. OTHER FINDINGS: None. IMPRESSION: Moderate to severe ascites. Mesenteric and subcutaneous edema consistent with anasarca.
[2016-09-22 14:56] LABS: HEPARIN-IND PLATELET AB Negative (Negative); RESULT Negative (Negative)
[2016-09-22 16:46] LABS: UFH SRA RESULT Negative (Negative)
[2016-09-22 20:07] LABS: B2 GLYCOPROTEIN I AB(IGA) 14 SAU (<=20); B2 GLYCOPROTEIN I AB(IGG) <9 SGU (<=20); B2 GLYCOPROTEIN I AB(IGM) <9 SMU (<=20)
--- NOTE | 2016-09-22 22:21 | PN ---
DATE: 09/22/2016 LOCATION: The patient is in room 560, bed 2. REASON FOR CONSULTATION: Portal vein thrombosis, amiodarone-induced hepatitis C, hepatosplenomegaly, transaminitis, history of pacemaker with acute injury, seen by me in the past for leukopenia, had a bone marrow aspiration biopsy done to rule out underlying lymphoma, which was negative. SUBJECTIVE: The patient is seen and examined. He was seen and examined at the bedside earlier today . Completed CAT scan with oral contrast of his abdomen and pelvis, which showed significant ascites, mesenteric edema. No other signs of acute pathology. The patient has been complaining of significa nt abdominal pain in the epigastric area, usually after his meals. He tolerates most of his solids; however, he had some pancakes. No nausea, vomiting and bowel movement x 1. No reports of any signif icant bleeding. VITAL SIGNS: Stable. T-max is 98.4, blood pressure is 103/67, pulse is 70, respirations 20, O2 sat is 93% on nasal cannula. LABORATORY DATA: Reveals a white count of 13.7, hemoglobin is 13, hematocrit 37.8, platelet count of 145. PTT is 44.9. PHYSICAL EXAMINATION: GENERAL: The patient is awake, alert, and oriented. HEENT: Head is normocephalic, atraumatic. Conjunctivae pale. Sclerae are anicteric. Examination o f the oropharynx reveals no oropharyngeal lesions. NECK: Supple. There is no adenopathy. No jugular venous distention noted. HEART: Reveals S1 and S2 to be normal. No gallop or murmurs heard. LUNGS: Reveals decreased breath sounds in both bases. No wheezes or rhonchi heard. ABDOMEN: Soft with mild positive epigastric tenderness. No rebound, rigidity or guarding is noted. EXTREMITIES: Reveals no cyanosis, clubbing or edema. ASSESSMENT NOTES AND PLAN: The patient has portal vein thrombosis with amiodarone-induced hepatitis, also has hepatosplenomegaly and hepatitis C, history of pacemaker with acute injury. Agree with the treatment plan of following the patient's labs very carefully. We will continue his current medicat ions and patient has already been placed on stool softeners and oxycodone p.r.n. He is on heparin as per protocol. Continue the current medications. I discussed the findings with the attending, . The patient may have to stay on Lovenox in the short run after being on heparin drip before being switched over, or at the same time being switched over to direct factor Xa inhibitor such as Eliquis. Routine post exam instructions have been given to the patient. The patient will be followed by us very carefully during this hospital stay. Sheryl Mendez MD cc: [id number] TT: 09/22/2016 22:20:36 Confirmation # [id number] Dictation # [id number] mn
[2016-09-23 02:05] LABS: PHOSPHATIDYLSERINE AB IGA <20 U/mL (<20); PHOSPHATIDYLSERINE AB IGM 39 U/mL (<25)
[2016-09-23 07:19] LABS: ALB/GLOB RATIO 0.7 (1.1-1.8); BILIRUBIN,DIRECT 1.4 mg/dL (0.0-0.4); BILIRUBIN,TOTAL 2.7 mg/dL (0.2-1.3); TOTAL PROTEIN 5.5 g/dL (5.8-8.3)
--- NOTE | 2016-09-23 09:09 | US ---
PROCEDURE: Portal vein duplex ultrasound. CLINICAL HISTORY: Follow-up portal vein thrombosis PHYSICIAN(S): Burton Bush M.D. FINDINGS: Occlusive hypoechoic thrombus is once again noted in the extrahepatic portal vein. No recanalization is appreciated. The portal splenic confluence appears patent. The hepatic artery is patent. The liver parenchyma is somewhat heterogeneous. No focal mass is identified. There is a small amount of ascites in the upper abdomen. IMPRESSION: 1. Acute, hypoechoic occlusive thrombus in the extrahepatic portal vein. 2. Small amount of ascites.
--- NOTE | 2016-09-23 09:19 | PN ---
DATE: 09/23/2016 DATE: 09/23/2016 SUBJECTIVE: The patient has no complaints of any chest pain, no shortness of breath. He does have a bdominal pain when he eats. PHYSICAL EXAMINATION: VITAL SIGNS: Temperature is 98.3. Pulse is 70. Blood pressure is 103/62, respirations 18. GENERAL: The patient is comfortable, in no acute distress. HEENT: Anicteric sclerae. Moist mucosa. NECK: No JVD or adenopathy. CARDIAC: S1/S2. No murmurs. No rubs. Regular. RESPIRATORY: Clear to auscultation bilaterally. No wheezes, rales, or rhonchi. Good air entry. ABDOMEN: Bowel sounds are positive, soft, nontender, and nondistended. EXTREMITIES: No edema. Has 1+ pulses. LABORATORY DATA: CT of the abdomen and pelvis done shows [id number] ascites. There is mesenteric and subcutaneous edema consistent with anasarca. ASSESSMENT: 1. Portal vein thrombus. 2. Amiodarone-induced hepatitis. 3. Hepatosplenomegaly. 4. Malnutrition, moderate. 5. Ascites. 6. Transaminitis. 7. Coagulopathy. 8. Pacemaker. 9. Acute kidney injury, resolved. 10. Do not resuscitate/do not intubate. PLAN: The patient is currently comfortable. He was seen by Dr. Mendez. The patient has been on El iquis. An abdominal ultrasound has been ordered. The patient is on Colace. He is going to continue on carvedilol. He is on Lasix. Silvino Dong MD cc: [id number] TT: 09/23/2016 09:18:40 Confirmation # [id number] Dictation # [id number] charla
[2016-09-23] MEDS: oxyCODONE 5 mg Immediate Release Tab PO PRN ×2 (09:43→16:18)
--- NOTE | 2016-09-23 10:25 | PN ---
DATE: 09/23/2016 SUBJECTIVE: The patient is seen lying in bed on 5R. He continues to have abdominal pain and postpra ndial pain. Edema persists and he has had increasing abdominal distention. An abdominal aortic ultr asound this morning showed persistent thrombosis of his portal vein. He remains on IV heparin. CURRENT MEDICATIONS: In addition to the heparin include Coreg 25 mg b.i.d., Lanoxin 0.125 mg daily, Lasix 40 mg daily, Pamelor, and Pepcid. OBJECTIVE: GENERAL: He is a chronically ill-appearing middle-aged man. VITAL SIGNS: His blood pressure is 102/62 with a pulse of 70 and regular. Respirations are 16. He is currently afebrile. HEENT: No JVD. CHEST: Bilateral scattered rhonchi. HEART: PMI displaced laterally with soft tones noted. ABDOMEN: Distended. Moderate diffuse tenderness is present. Bowel sounds are heard. Ascites appea rs present. EXTREMITIES: 1-2+ leg edema is noted. DIAGNOSTIC DATA: Total bilirubin is 2.7, direct bili 1.4. AST and ALT are elevated at 97 and 99, al kaline phosphatase 245. Albumin is 2.3. IMPRESSION: 1. Portal vein thrombosis with no evidence of recannulization on IV heparin. Of note, this did occu r in the setting of chronic Eliquis use, although the efficacy of Eliquis in treatment of portal vein thrombosis appears to have lower efficacy than heparin in some studies recently performed. 2. Ascites and edema likely due to liver disease. 3. Severe left ventricular systolic dysfunction. 4. Coronary artery disease, status post prior bypass surgery. 5. History of ventricular tachycardia status post implantable cardioverter-defibrillator implant. RECOMMENDATIONS: Ultrasound will be reviewed with Dr. Bush. Any alternative treatments for his por rickey vein thrombosis will be discussed including possible infusion of thrombolytics locally. Surgical thrombectomy appears to be excessively high risk given his heart and lung issues. If there are no o ther options for him, his prognosis is extremely poor, and the likelihood of intestinal infarction is high. A DNR order has been placed, and arrangements will be made to deactivate his defibrillator as well. Comfort care and consideration of hospice placement would be appropriate at that time. We wi ll continue to follow along and make further recommendations as appropriate. Ankit Montero MD cc: [id number] TT: 09/23/2016 10:24:53 Confirmation # [id number] Dictation # [id number] jn
[2016-09-23 13:24] LABS: CARDIOLIPIN AB (IGA) <11 APL (<=11)
--- NOTE | 2016-09-23 18:57 | PN ---
DATE: 09/23/2016 The patient was seen and examined at the bedside earlier this afternoon. His ex- is at bedside. The patient still gets abdominal discomfort, mainly in the epigastric area after eating. No nausea or vomiting. He is moving his bowels, but reports that they heard. No reports of any bleeding. He went for an abdominal Doppler this morning and that reports hypoechoic occlusive thrombus in the extr ahepatic portal vein and small amount of ascites. The patient does complain of abdominal distention. He did go for a CT scan as well yesterday and that showed moderate to severe ascites as well as mes enteric and subcutaneous edema consistent with anasarca. LABORATORIES: His liver enzymes are total bilirubin is 2.7, direct bilirubin 1.4, AST 97, ALT 99, al kaline phosphatase is 245. PHYSICAL EXAMINATION: HEENT: Sclera is anicteric. NECK: Supple. CARDIAC: S1, S2. LUNGS: Clear. ABDOMEN: With bowel sounds, soft. It is distended with positive epigastric tenderness. No rebound, guarding. EXTREMITIES: Positive edema. ASSESSMENT: Portal vein thrombosis, amiodarone-induced hepatitis. He also has hepatosplenomegaly, a nasarca, transaminitis, history of pacemaker and improving acute renal failure. PLAN: He remains on the heparin drip per protocol. Will continue the stool softeners. He is on Pep alvarez, Lasix and gets oxycodone for pain. He is also being followed by cardiology and oncology. The patient was seen and case discussed with Dr. Smith. Inessa SUTHERLAND cc: [id number] TT: 09/23/2016 18:57:05 Confirmation # [id number] Dictation # [id number] en
--- NOTE | 2016-09-23 21:36 | PN ---
DATE: 09/23/2016 This is [facility] visit on the medical floor. For Dr. Mendez. SUBJECTIVE: The patient is a 71-year-old male seen lying awake in bed with family at the bedside, st ill reporting his abdominal pain persists with oxycodone helping if is given prior to his attempted m eals. He is not a candidate for Hyperal with the patient status post an abdominal ultrasound earlier today showing an acute hypoechoic occlusive thrombus and extrahepatic portal vein, small amount of a scites. No significant change. He had a CAT scan of the abdomen and pelvis done yesterday. It was arielle d as moderate to severe ascites, mesenteric subcutaneous edema consistent with anasarca. He reports he had a bowel movement today with Colace continued with his medications. OBJECTIVE: PHYSICAL EXAMINATION: VITAL SIGNS: Temperature 97.8, pulse 73, respirations 19, blood pressure 97/59, pulse ox 94%. HEENT: Unremarkable, mildly icteric sclerae. NECK: Supple. HEART: Regular rate. LUNGS: Minimal decreased breath sounds at the bases. ABDOMEN: Distended, positive ascitic fluid wave. EXTREMITIES: Faint +1 edema. NEUROLOGIC: Awake and alert with poor hearing. LABORATORY DATA: The patient's labs were done with a PTT of 60.6 with a T-bili of 2.7, direct biliru bin 1.4, AST of 97, ALT of 99. Homocysteine value of 19. ASSESSMENT: Portal vein thrombosis while on Eliquis, amiodarone-induced hepatitis, hepatosplenomegal y, ascites, malnutrition, history of hypercoagulable state, status post pacer defibrillator and poor hearing. PLAN: The plan for this patient is to continue his oxycodone prior to meals, heparin as per protoco l with continuation possibly changed to Lovenox in the near future with DNR/DNI implemented. He also has a consult with Dr. Campbell for depression with his labs to be repeated in the morning. Titi Aguilar MD cc: [id number] TT: 09/23/2016 21:35:26 Confirmation # [id number] Dictation # [id number] jn
[2016-09-24] MEDS: Heparin25000 units/250ml 1/2NS 25,000 UNITS/250 ML BAG IV PRN ×2 (05:44→08:07)
[2016-09-24 06:40] LABS: ADD MANUAL DIFF? NO
[2016-09-24 06:43] LABS: BASO # 0.02 K/mm3 (0.0-2.0); BASO % 0.2 % (0.0-3.0); EOS # 0.4 (0.0-0.7); EOS % 4.1 % (1.5-5.0); GRAN # 8.33 (1.4-6.5); GRAN % 80.2 % (50.0-68.0); HEMATOCRIT 36.2 % (42.0-52.0); LYMPH # 0.7 (1.2-3.4); LYMPH % 7.1 % (22.0-35.0); MEAN CELL VOLUME 95.5 fL (80.0-105.0); MEAN CORPUSCULAR HEMOGLOBIN 32.5 pg (25.0-35.0); MEAN PLATELET VOLUME 11.9 fl (7.0-11.0); MONO # 0.9 (0.1-0.6); MONO % 8.4 % (1.0-6.0); PLATELET COUNT 141 10^3/uL (120.0-450.0); RED CELL DISTRIBUTION WIDTH 17.3 % (11.5-14.5); WHITE BLOOD COUNT 10.4 10^3/ul (4.5-11.0)
[2016-09-24 07:18] LABS: ALB/GLOB RATIO 0.7 (1.1-1.8); ALKALINE PHOSPHATASE 264 U/L (38-133); ALT/SGPT 93 U/L (7-56); AST/SGOT 83 U/L (15-59); BILIRUBIN,DIRECT 1.5 mg/dL (0.0-0.4); BILIRUBIN,TOTAL 2.5 mg/dL (0.2-1.3); BLOOD UREA NITROGEN 36 mg/dL (7-21); CALCIUM 8.2 mg/dL (8.4-10.5); CARBON DIOXIDE 30 mmol/L (21-33); CHLORIDE 101 mmol/L (98-107); GFR AFRICAN-AMERICAN > 60; GLUCOSE,RANDOM 111 mg/dL (70-110); POTASSIUM 4.8 mmol/L (3.6-5.0); SODIUM 135 mmol/L (132-148); TOTAL PROTEIN 5.6 g/dL (5.8-8.3)
[2016-09-24] MEDS: oxyCODONE 5 mg Immediate Release Tab PO PRN ×3 (08:18→20:35)
--- NOTE | 2016-09-24 10:16 | PN ---
DATE: 09/24/2016 SUBJECTIVE: The patient has no complaints of any chest pain, no shortness of breath, no headaches, n o dizziness. PHYSICAL EXAMINATION: VITAL SIGNS: Temperature is 97.8, pulse of 72, blood pressure 110/63, respirations 20, O2 saturation 94%. Height is 5 feet 8 inches, weight is 145 pounds, BMI is 22.1. GENERAL: The patient lying in bed, flat, and in no apparent distress. HEAD AND NECK EXAM: Atraumatic, normocephalic. Conjunctivae are pink. Throat clear and mouth with moist mucosa. Oropharynx benign. EYES: Extraocular movements are intact. PERRLA. NECK: Supple. No JVD, thyromegaly, or adenopathy. No bruits. HEART: S1 and S2 regular rate and rhythm. No murmurs, rubs, or gallops. LUNGS: Clear to auscultation bilaterally. No wheezing rales or rhonchi appreciated. No retraction s on exam. ABDOMEN: Soft, nontender, nondistended. Bowel sounds are positive in all quadrants. No rebound. No hepatosplenomegaly. EXTREMITIES: No cyanosis, clubbing, or edema. NEUROLOGIC: No facial asymmetry, tongue is midline, no uvula deviation. Power is 5/5 in upper extr emity and 5/5 in lower extremity. Sensation is normal in upper extremity and lower extremity. PSYCHIATRIC: Awake, alert, oriented x 3. No anxiety or depression symptoms. Good insight. Loli l affect. GENITOURINARY: No CVA tenderness VASCULAR: 2+ pulses in carotid and pedal pulses. SKIN: No erythema or abnormal nodules noted. SPINE: Normal curvature. LYMPHADENOPATHY: No anterior cervical or posterior cervical adenopathy. No inguinal adenopathy. Abdominal ultrasound done shows an acute hypoechogenic occlusive thrombus in the extrahepatic portal vein with a small amount of ascites. ASSESSMENT: 1. Portal vein thrombus. 2. Amiodarone-induced hepatitis 3. Hepatosplenomegaly 4. Malnutrition, moderate. 5. Ascites. 6. Transaminitis. 7. Coagulopathy. 8. Pacemaker. 9. Acute kidney injury, resolved. 10. Do not resuscitate/do not intubate. PLAN: The patient is currently comfortable. The plan is for the patient to undergo hospice. Dr. Ashwin youssef will have the patient's defibrillator taken off. The patient is do not resuscitate/do not int ubate. The patient is currently on heparin. The patient is on Pamelor. This will be continued. He is on his oxycodone for pain. He is on digoxin. He is on a regular diet and takes pain medications when he has pain when he eats. Overall prognosis is poor. Silvino Dong MD cc: [id number] TT: 09/24/2016 10:15:31 Confirmation # [id number] Dictation # [id number] en
--- NOTE | 2016-09-24 16:40 | PN ---
DATE: 09/24/2016 Seen and examined at the bedside earlier today. The patient still reports abdominal pain after eatin g. No nausea or vomiting. He is having bowel movements but with complaints that is hard stool but n o bleeding. He is on stool softeners b.i.d. No acute overnight events reported. VITAL SIGNS: Temperature is 97.8, blood pressure is 110/63, pulse is 72, respirations are 20, 94 on room air. LABORATORY DATA: WBC 10.4, H and H is 12.3 and 36.2, platelets are 141. PTT is 41.9. Sodium 135, K 4.8, BUN is 36, creatinine is 1.1. Total bilirubin 2.5, direct bili is 1.5. AST 83, ALT 93, alkali ne phosphatase is 264. PHYSICAL EXAMINATION: HEENT: Sclera is anicteric. NECK: Supple. CARDIAC: S1, S2. LUNGS: Sounds are clear. No rales or wheeze. ABDOMEN: With bowel sounds, soft, distended. Epigastric tenderness. No rebound or guarding. EXTREMITIES: Positive bilateral edema. NEUROLOGIC: Awake, alert, and oriented. ASSESSMENT: Portal vein thrombosis, amiodarone-induced hepatitis, hepatosplenomegaly, ascites, trans aminitis, history of pacemaker. PLAN: Continue diet as tolerated. The patient is for hospice evaluation. The patient is requesting to have the defibrillator turned off. There is going to be a meeting as per the patient. We will c ontinue the stool softeners and we can increase to 3 times a day and monitor the stools. The patient is on oxycodone for pain. He remains on the heparin drip. The patient was seen and case discussed with Dr. Smith. Inessa SUTHERLAND cc: [id number] TT: 09/24/2016 16:39:56 Confirmation # [id number] Dictation # [id number]
--- NOTE | 2016-09-24 20:57 | PN ---
DATE: 09/24/[address] Mendez. SUBJECTIVE: The patient is a 71-year-old male seen lying awake in bed, reporting that his abdominal pain is now modestly worsened despite oxycodone given prior to meals when the pain is more significan t. With this, after conversation with Dr. Mendez, we will ask for morphine 1 mg IV to be given prio r to meals to see if this may help his pain, so that nutrition will not be compromised. The patient is not a candidate for hyperal with the patient known to have a thrombus in the portal vein despite b eing on Eliquis. With this the patient has also hard of hearing, with the patient known to suffer fr om amiodarone-induced hepatitis. He also reports that he has asked Dr. Montero to turn off his pace maker as he is a DNR/DNI patient at this point. PHYSICAL EXAMINATION: VITAL SIGNS: Temperature 98.2, pulse 71, respirations 20, blood pressure 113/65, pulse ox of 94%. HEENT: Unremarkable. NECK: Supple. HEART: Regular rate. LUNGS: Clear. ABDOMEN: Minimal tenderness to gentle palpation. EXTREMITIES: No edema. SKIN: Warm, dry and clear. NEUROLOGIC: Awake, alert. He has decreased hearing. LABORATORY DATA: The patient's labs were done. White blood cell count of 10.4, hemoglobin 12.3, hem atocrit 36.2, platelet count 141,000 with a chem metabolic panel showing a T-bili of 2.5, AST of 83, ALT of 93. Alkaline phosphatase 264, BUN of 36, creatinine 1.1, PTT is 41.9. 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 ASSESSMENT: Amiodarone-induced hepatitis, portal vein thrombosis, malnutrition, intractable pain, st atus post pacer defibrillator, hypercoagulable state, poor hearing, ascites. PLAN: The patient is to continue present medical regimen with a trial of morphine 1 mg subQ prior me als to see if this will help his meal-induced pain. Prognosis for this patient unfortunately is poo. Will monitor clinically and with labs, will also continue heparin IV. Titi Paduszynski MD cc: [id number] TT: 09/24/2016 20:56:14 Confirmation # [id number] Dictation # [id number] jn
[2016-09-25 07:07] LABS: ALB/GLOB RATIO 0.7 (1.1-1.8); BILIRUBIN,DIRECT 1.5 mg/dL (0.0-0.4); BILIRUBIN,TOTAL 2.7 mg/dL (0.2-1.3); TOTAL PROTEIN 5.7 g/dL (5.8-8.3)
--- NOTE | 2016-09-25 07:55 | PN ---
DATE: 09/25/2016 SUBJECTIVE: The patient has no complaints of any chest pain, no shortness of breath, no headaches. PHYSICAL EXAMINATION: VITAL SIGNS: Temperature is 98.2, pulse of 71, blood pressure is 113/65, respiration is 20. GENERAL: The patient comfortable, in no acute distress. HEENT: Anicteric sclerae. Moist mucosa. NECK: No JVD or adenopathy. CARDIAC: S1/S2. No murmurs. No rubs. Regular. RESPIRATORY: Clear to auscultation bilaterally. No wheezes, rales, or rhonchi. Good air entry. ABDOMEN: Bowel sounds are positive, soft, nontender, and nondistended. EXTREMITIES: No edema. Has 1+ pulses. LABORATORIES: White count of 10.4, hemoglobin 12.3. Creatinine is 1.1. ASSESSMENT: 1. Portal vein thrombosis. 2. Amiodarone-induced hepatitis 3. Hepatosplenomegaly. 4. Malnutrition, moderate. 5. Ascites. 6. Transaminitis. 7. Coagulopathy. 8. Acute kidney injury, resolved. 9. History of ventricular tachycardia, status post defibrillator implant. 10. Coronary artery disease, status post coronary artery bypass graft. 11. Cardiomyopathy with an ejection fraction 15%-20%. 12. Do not resuscitate. PLAN: The patient is currently comfortable. He had been on anticoagulation with Eliquis, but develo ped a portal vein thrombus. The patient may not be able to give himself Lovenox shots and so I think Coumadin may be a better option. I did speak to Dr. Mendez regarding this issue. It is difficult to say what is the proper treatment for this patient given that he had been on Eliquis as an anticoag ulant. There are also discussions about end of life care and the patient is do not resuscitate. Int erventional radiology with Dr. Burton Bush was consulted and the patient is at high risk for thrombol ytic therapy. The patient is on carvedilol. He is going to continue with heparin at this point. Th e patient is on digoxin. He is on morphine for pain. He is also receiving oxycodone for pain. He h as a very poor quality of life given that he has pain when he is eating and needs narcotics for pain control. He is going to continue his Pamelor. He is being followed by multiple consultants. Silvino Dong MD cc: [id number] TT: 09/25/2016 07:55:03 Confirmation # [id number] Dictation # [id number] en
[2016-09-25] MEDS: Morphine 2 mg/ml ISec IVP SCH ×3 (08:30→16:51)
[2016-09-25] MEDS: oxyCODONE 10 mg Immediate Release Tab PO PRN ×2 (08:37→16:48)
[2016-09-25] MEDS: Heparin25000 units/250ml 1/2NS 25,000 UNITS/250 ML BAG IV PRN (08:46)
--- NOTE | 2016-09-25 13:18 | CP.PCM.CON ---
History of Present Illness - History of Present Illness History of Present Illness: Palliative consult requested by Dr Josette Dong Reason: Goals of care/hospice discussion 71 year old male admitted with abdominal swelling and discomfort, fatigue and dyspnea. Workup revealed portal vein thrombosis. He is high risk for any surgical intervention. PMHX: COPD, CHF,ischemic cardiomyopathy, EF 15%,ICD, s/p coronary stents, bilateral hearing loss, GI bleed,amiodarone induced hepatitis. Social History: Former smoker, denies alcohol and rug use. lives alone. His daughter Joyce Saleem is POA Family History: Father had emphysema. Mother from cerebral aneurysm. One brother after suffering an CT. he has tow other siblings in good health Advance Care Planning: He does not have an Advanced Directive.He is DNR/DNI Past Patient History - Infectious Disease Hx of Infectious Diseases: None - Tetanus Immunizations Tetanus Immunization: Unknown - Past Social History Smoking Status: Former Smoker - CARDIAC Hx Cardiac Disorders: (bypass and mitral valve repair) Hx Congestive Heart Failure: Yes Hx Hypercholesterolemia: Yes Hx Internal Defibrillator: Yes Hx Pacemaker: Yes (LEFT CHEST WALL) Hx Peripheral Edema: Yes (+1 pitting both feet) Other/Comment: total of 9 stents between [address]ur carlson,bypas 5 vessels and mitral valve repair by dr ruthann lim on 07/25/20088 to 08/31/2008, [facility] pacemaker by dr lisa echeverria 07/25/2008, [facility] em[facility] pacemaker/ defibrillator by dr echeverria 03/17/2013 and 05/19/2013. vascular sx - PULMONARY Hx Respiratory Disorders: No - NEUROLOGICAL Hx Neurological Disorder: Yes HX Cerebrovascular Accident: Yes - HEENT Hx HEENT Problems: Yes (WEARS RX GLASSES) Hx Deafness: Yes (bilateral hearing aids) - RENAL Hx Chronic Kidney Disease: No - ENDOCRINE/METABOLIC Hx Endocrine Disorders: No - HEMATOLOGICAL/ONCOLOGICAL Hx Blood Disorders: Yes (blood type o+) Hx Anemia: Yes (blood transfusion) - INTEGUMENTARY Hx Dermatological Problems: Yes Other/Comment: multiple red bruises to right hand, r forehead abrasion, left knee red and swollen with abrasions, rle multiple red scabs - MUSCULOSKELETAL/RHEUMATOLOGICAL Hx Falls: Yes - GASTROINTESTINAL Hx Gastrointestinal Disorders: No Hx Gall Bladder Disease: Yes (GALLSTONES) - GENITOURINARY/GYNECOLOGICAL Hx Genitourinary Disorders: Yes (OVERACTIVE BLADDER) - PSYCHIATRIC Hx Substance Use: No - SURGICAL HISTORY Hx Coronary Stent: Yes (9) Hx Open Heart Surgery: Yes Other/Comment: 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 - ANESTHESIA Hx Anesthesia: Yes Hx Anesthesia Reactions: No Hx Malignant Hyperthermia: No Meds Allergies/Adverse Reactions: Allergies Allergy/AdvReac Type Severity Reaction Status Date / Time No Known Allergies Allergy Verified 08/10/16 21:16 - Medications Medications: Current Medications Carvedilol (Coreg) 6.25 mg PO BID [facility] Last Admin: 09/25/16 10:06 Dose: 6.25 mg Digoxin (Lanoxin) 0.125 mg PO 1400 [facility] Last Admin: 09/20/16 14:59 Dose: Not Given Docusate Sodium (Colace) 100 mg PO BID [facility] Last Admin: 09/25/16 10:06 Dose: 100 mg Famotidine (Pepcid) 20 mg PO DAILY [facility] Last Admin: 09/25/16 10:06 Dose: 20 mg Heparin Sodium/Sodium Chloride (Heparin 27403 Units/250ml 1/2 Normal Saline) 25 ,000 units in 250 mls @ 11.716 mls/hr IV .[id number] PRN; Protocol; 18 UNITS/KG/HR PRN Reason: ADJUST RATE PER PROTOCOL Last Admin: 09/25/16 08:46 Dose: 11.21 units/kg/hr, 7.3 mls/hr Morphine Sulfate (Morphine) 1 mg IVP AC [facility] Last Admin: 09/25/16 11:57 Dose: 1 mg Nortriptyline HCl (Pamelor) 25 mg PO HS [facility] Last Admin: 09/19/16 22:07 Dose: 25 mg Oxycodone HCl (Oxycodone Immediate Release Tab) 10 mg PO Q4H PRN PRN Reason: Pain, moderate (4-7) Last Admin: 09/25/16 08:37 Dose: 10 mg Physical Exam - Constitutional Appears: Cachectic, Chronically Ill - Head Exam Head Exam: NORMAL INSPECTION - Eye Exam Eye Exam: Normal appearance, PERRL - ENT Exam ENT Exam: Mucous Membranes Moist - Respiratory Exam Respiratory Exam: Decreased Breath Sounds, Rhonchi - Cardiovascular Exam Cardiovascular Exam: +S1, +S2, Systolic Murmur - GI/Abdominal Exam GI & Abdominal Exam: Distended, Soft, Tenderness Additional comments: hepatomegaly - Extremities Exam Additional comments: 2 + edema of both lower extremities - Neurological Exam Neurological exam: Alert, Oriented x3 - Skin Skin Exam: Dry, Pallor - Additional Findings Additional findings: Palliative performance scale rating 40 % Results - Vital Signs Recent Vital Signs: Last Vital Signs Temp 98.1 F 09/25/16 07:30 Pulse 60 09/25/16 10:06 Resp 22 09/25/16 07:30 BP 146/78 09/25/16 10:06 Pulse Ox 98 09/25/16 07:30 - Labs Result Diagrams: 09/24/16 06:30 09/24/16 06:30 Labs: Laboratory Results - last 24 hr 09/25/16 09/25/16 09/25/16 00:25 06:30 06:30 APTT 53.9 H 42.9 H Total Bilirubin 2.7 H Direct Bilirubin 1.5 H AST 84 H ALT 88 H Alkaline Phosphatase 266 H Total Protein 5.7 L Albumin 2.3 L Globulin 3.3 Albumin/Globulin Ratio 0.7 L Assessment & Plan - Assessment and Plan (Free Text) Assessment: 71 year old male admitted with thrombosis of portal vein,abdominal pain, distention, post parandial pain, constipation, decreased appetite. Extensive comorbidities, see PMH. Patient states his pain is steady at level of 5. Increases after meals. Patient is alert, oriented. Patient expressed understanding of his current medical situation and poor prognosis. Patient recognizes he is at high risk for surgical intervention (thrombolectomy). He also verbalized acceptance of the fact that he is nearing end of life. Patient has agreed to DNR/DNI. He has agreed to having ICD turned off. Patient states that he does not want to be hospitalized in the future and prefers to be kept comfortable. Patient having a very hard time accepting that he can no longer live independently at home. He states he is unable to afford multimedia manager rn primary care. His daughter is unable to care for him in her home. Options for hospice care explained in detail. Transition to hospice facility offered. Patient is undecided. Patient's daughter who was present during our conversation is very insistent that he be evaluated for [facility] hospice services. I explained that patient does not meet criteria for acute symptom management under GIP criteria at this time. Family wants some time to consider option that were discussed. Psychosocial support give. executive kitchen manager aware of families needs and will work with them to identify appropriate hospice facility. Time spent in discussion with patient/daughter regarding goals of care, explanation of hospice services and end of life counseling , 45 minutes Plan: Pain management: Change to Oxycodone ER 10 mg twice dialy. Keep Morphine 1 mg as needed for breakthrough pain. Stop Oxycodone 10 mg IR Continue to monitor opioid induced constipation. Patient is currently on bowel regimen with Colace 100mg twice daily. Patient states he is had several small bowel movements. Would add Miralax 17 gms daily. Will assist with end of life care planning - Date & Time Date: 09/25/16 Time: 11:00
--- NOTE | 2016-09-25 19:38 | PN ---
DATE: 09/25/2016 Seen and examined at the bedside earlier today. The physiotherapist was at the bedside shutting the patient's pacemaker as he had requested. The daughter was at the bedside. The patient's pain medic ine increased. He was seen by palliative nurse. He still gets abdominal discomfort after eating, bu t with the additional pain med it was a little bit more tolerable. No reports of nausea, vomiting or overt GI bleed. VITAL SIGNS: Temperature is 98.1, blood pressure is 130/72, pulse 70, respirations 20, 99 on room ai r. LABORATORY DATA: Total bilirubin is 2.7, direct bilirubin 1.5, AST 84, ALT 88, alkaline phosphatase is 256. PHYSICAL EXAMINATION: HEENT: Sclerae is icteric. NECK: Supple. CARDIAC: S1, S2. LUNGS: Decreased breath sounds but good air entry. ABDOMEN: With bowel sounds, softly distended. Some tenderness noted. EXTREMITIES: Positive bilateral edema. NEUROLOGIC: Awake, alert, and oriented. ASSESSMENT: Portal vein thrombosis, amiodarone-induced hepatitis, hepatosplenomegaly, ascites, trans aminitis, history of defibrillator which has now been turned off as the patient requests, coronary ar allison disease status post coronary artery bypass graft. PLAN: The patient remains on heparin drip per protocol. Diet as tolerated. He is on bowel regimen of Colace b.i.d. We added MiraLax daily. Monitor stool. The patient is on morphine and oxycodone. He is also on Pepcid. The patient was seen by the palliative care team and family is to make a deci tonie on further end of life care plan. The patient was seen and case discussed with Dr. Smith. Inessa Austines ENA cc: [phone] TT: 09/25/2016 19:37:26 Confirmation # [id number] Dictation # [id number] charla
[2016-09-25] MEDS ORDERED: Alum-Mag Hydrox-Simethicone Susp (30 mL) PO STA (20:12)
--- NOTE | 2016-09-25 20:12 | CP.PCM.PN ---
Subjective - Date & Time of Evaluation Date of Evaluation: 09/25/16 Time of Evaluation: 20:11 - Subjective Subjective: Patient was seen at bedside because he complained of heart burn. Has no other complaints now. Denies chest pain, sob, nausea, sweating , palpitation. Medical record was reviewed. 71 year old white male was admitted with abdominal pain. Has PMH of CAD,HTN,dyslipidemia,amiodarone induced hepatitis, malnutrition, pacemaker insertion. Objective - Vital Signs/Intake and Output Vital Signs (last 24 hours): Temp Pulse Resp BP Pulse Ox 98.1 F 70 20 130/72 99 09/25/16 16:00 09/25/16 17:35 09/25/16 16:00 09/25/16 17:35 09/25/16 16:00 Intake and Output: 09/25/16 09/26/16 18:59 06:59 Intake Total 187 Balance 187 - Medications Medications: Current Medications Carvedilol (Coreg) 6.25 mg PO BID [facility] Last Admin: 09/25/16 17:35 Dose: 6.25 mg Digoxin (Lanoxin) 0.125 mg PO 1400 [facility] Last Admin: 09/20/16 14:59 Dose: Not Given Docusate Sodium (Colace) 100 mg PO BID [facility] Last Admin: 09/25/16 17:35 Dose: 100 mg Famotidine (Pepcid) 20 mg PO DAILY [facility] Last Admin: 09/25/16 10:06 Dose: 20 mg Heparin Sodium/Sodium Chloride (Heparin 26360 Units/250ml 1/2 Normal Saline) 25 ,000 units in 250 mls @ 11.716 mls/hr IV .[id number] PRN; Protocol; 18 UNITS/KG/HR PRN Reason: ADJUST RATE PER PROTOCOL Last Admin: 09/25/16 08:46 Dose: 11.21 units/kg/hr, 7.3 mls/hr Morphine Sulfate (Morphine) 1 mg IVP AC [facility] Last Admin: 09/25/16 16:51 Dose: 1 mg Nortriptyline HCl (Pamelor) 25 mg PO HS [facility] Last Admin: 09/19/16 22:07 Dose: 25 mg Oxycodone HCl (Oxycodone Immediate Release Tab) 10 mg PO Q4H PRN PRN Reason: Pain, moderate (4-7) Last Admin: 09/25/16 16:48 Dose: 10 mg Polyethylene Glycol (Miralax) 17 gm PO DAILY [facility] - Labs Labs: 09/24/16 06:30 09/24/16 06:30 PT 14.8 Seconds (9.9-11.8) H 09/18/16 17:00 INR 1.37 (0.93-1.08) H 09/18/16 17:00 APTT 69.2 Seconds (23.7-30.8) H 09/25/16 19:00 - Constitutional Appears: Well, No Acute Distress - Eye Exam Eye Exam: Normal appearance - ENT Exam ENT Exam: Normal External Ear Exam - Neck Exam Neck Exam: Normal Inspection - Respiratory Exam Respiratory Exam: NORMAL BREATHING PATTERN - Cardiovascular Exam Cardiovascular Exam: absent: JVD - GI/Abdominal Exam GI & Abdominal Exam: Distended (Abdominal distension positive.) - Rectal Exam Rectal Exam: Deferred - Extremities Exam Extremities Exam: Normal Inspection - Back Exam Back Exam: NORMAL INSPECTION - Neurological Exam Neurological Exam: Alert, Oriented x3 - Psychiatric Exam Psychiatric exam: Normal Affect, Normal Mood - Skin Skin Exam: Normal Color Assessment and Plan - Assessment and Plan (Free Text) Assessment: A/P:Heart burn. CAD. HTN. Dyslipidemia. Poor venous access. Mylanta 30 CC PO now. # 22 angiocath was inserted in right forearm.
--- NOTE | 2016-09-25 22:43 | PN ---
DATE: 09/25/2016 The patient is in room 560, bed 2. REASON FOR CONSULTATION: The patient had been seen by me in the past for leukocytosis, anemia and ab normal liver functions. The patient has had a steady progressive downhill course. 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 The patient was having significant post prandial pain whenever he eats anything more than liquids. It had been temporized with giving the lyndsay peña medication. Pain medication just prior to eating, that seems to alleviate to some degree the p ain. The patient's case was discussed with the pilot and the PMD and at the family and the lyndsay peña's request, patient's pacemaker is being shut down as requested. Daughter was at the bedside. The patient's pain medications have been increased. Palliative nurses have seen him. The patient is examined at the bedside. VITAL SIGNS: Stable. T-max is 98.4, blood pressure is 130/70, pulse is 70, respirations 22, O2 sat is 99% on room air. LABORATORY DATA: Reveals total bilirubin of 2.7, direct bili of 1.5, AST is 84, ALT is 88, alkaline phosphatase is 256. CBC is unchanged. PHYSICAL EXAMINATION: HEENT: The patient is icteric. NECK: Supple. There is no adenopathy. HEART: Reveals S1 and S2 to be normal. LUNGS: Reveals decreased breath sounds at the bases on both sides. ABDOMEN: Soft. There is epigastric tenderness noted without any rebound. No masses per se are felt . There is no evidence of acute abdomen. EXTREMITIES: Positive for bilateral edema. NEUROLOGIC: Higher functions are normal. No focal deficits are noted. ASSESSMENT NOTES AND PLAN: The patient has portal vein thrombosis on Eliquis, amiodarone-induced hep atitis, hepatosplenomegaly, ascites, transaminitis, defibrillator which is being turned off today, lyndsay peña's request; coronary artery disease status post coronary artery bypass graft. Still on intraven ous heparin. Discussed the findings with Dr. Dong. I do not think I have any other options at t his time. The patient remains on intravenous heparin drip protocol. Diet is as tolerated. He is ge tting pain medicines just before the meals and a bowel regimen of Colace 100 b.i.d. along with MiraLa x. He is on morphine and oxycodone for pain. He is on Pepcid. We will see if Carafate can be also added to the regimen to help with his pain. We will also check with gastrointestinal about adding a drug to increase motility, such as small amounts of Reglan. Routine post-exam instructions have been given to the patient and agreed with supportive care at least to alleviate his pain and keep his anders lity of life better even though we are not treating him aggressively. Sheryl Mendez MD cc: [id number] TT: 09/25/2016 22:43:06 Confirmation # [id number] Dictation # [id number] sn
[2016-09-26] MEDS: Heparin25000 units/250ml 1/2NS 25,000 UNITS/250 ML BAG IV PRN (01:19)
[2016-09-26 08:26] LABS: ALB/GLOB RATIO 0.7 (1.1-1.8); BILIRUBIN,DIRECT 1.4 mg/dL (0.0-0.4); BILIRUBIN,TOTAL 2.5 mg/dL (0.2-1.3); TOTAL PROTEIN 5.7 g/dL (5.8-8.3)
[2016-09-26] MEDS: Morphine 2 mg/ml ISec IVP SCH ×3 (08:42→16:31)
[2016-09-26] MEDS: POLYETHYLENE GLYCOL 3350 17 GM/Dose PACKET PO SCH (10:29)
--- NOTE | 2016-09-26 12:03 | PN ---
DATE: 09/26/2016 SUBJECTIVE: The patient is a 71-year-old, seen and examined, lying in bed, seems to be comfortable, complaining of abdominal distention, on heparin drip, does not have good appetite. PHYSICAL EXAMINATION: VITAL SIGNS: He is afebrile, pulse 70, respirations 20, and blood pressure 113/70. LUNGS: Bilateral fair airflow, no rhonchi or crackle. HEART: S1, S2 audible. ABDOMEN: Soft, distended with fluid thrill. EXTREMITIES: Bilateral legs +1 edema. LABORATORY EXAMINATION: WBC is 10.4, hemoglobin 12, hematocrit 36, platelets 141. His PTT is 65.8. Chemistry: Sodium 135, potassium 4.8, chloride 101, CO2 of 30, BUN 36, creatinine 1.1, blood sugar of 111. His total bili 2.5. Direct bili 1.4, AST 84, ALT 78. Alk phos is 264. ASSESSMENT: 1. Portal vein thrombosis, on heparin. 2. Coagulopathy. 3. Abnormal liver function tests and hepatosplenomegaly. 4. Amiodarone-induced hepatitis. 5. Probably cirrhotic ascites. 6. Status post defibrillator placement. 7. Coronary artery disease, status post open heart surgery multiple years ago. 8. Cardiomyopathy with poor ejection fraction of 15-20%. PLAN: The patient is currently on heparin. He is on digoxin, Coreg, Colace, and famotidine. The pr ognosis is poor. He is DNR. Princess Lyles MD cc: [phone] TT: 09/26/2016 12:02:46 Confirmation # [id number] Dictation # [id number] tn
--- NOTE | 2016-09-26 14:06 | PN ---
DATE: 09/26/2016 SUBJECTIVE: The patient is seen sitting in bed on 5R. He continues to have difficulty eating with frequent postprandial pain. He remains on IV heparin. CURRENT MEDICATIONS: Include Colace, carvedilol 6.25 mg b.i.d., IV heparin, digoxin currently on hold, morphine, oxycodone, as well as Pamelor and Pepcid 20 mg daily. OBJECTIVE: GENERAL: He is a frail appearing, middle-aged man. VITAL SIGNS: His blood pressure is 112/70, the pulse is 70 and regular, respirations are 16, he is afebrile. HEENT: Temporal wasting noted. CHEST: A few scattered rhonchi. HEART: PMI displaced laterally with soft tones noted. ABDOMEN: Distended. Bowel sounds are present. Mild diffuse tenderness is present. EXTREMITIES: 1+ leg edema. DIAGNOSTIC DATA: PTT is 66. AST, ALT 84 and 78. Bilirubin is 2.5 with direct bilirubin 1.4. IMPRESSION: 1. Postprandial pain secondary to intestinal ischemia precipitated by portal vein thrombosis. 2. Severe ischemic cardiomyopathy. 3. Coronary artery disease, status post prior bypass surgery. RECOMMENDATIONS: Continued supportive care is advised at the present time. Comfort care is recommended. Digoxin will be discontinued. The rest of his cardiac medications will continue unchanged as his portal vein has not recannulated. Consideration could be given to discontinuation of heparin. Hospice evaluation is in progress. We will follow along as needed. Ankit Montero MD cc: [phone] TT: 09/26/2016 14:06:05 Confirmation # [id number] Dictation # [id number] dina GRANDE
[2016-09-26] MEDS: oxyCODONE 10 mg Immediate Release Tab PO PRN (14:34)
--- NOTE | 2016-09-27 01:06 | PN ---
DATE: 09/26/2016 The patient is in room 560, bed 2. PROBLEMS: The patient has portal vein thrombosis on IV heparin, history of coagulopathy, abnormal LF Ts, consistent with amiodarone related to cirrhosis, hepatosplenomegaly status post reactivation of h is defibrillator, coronary artery disease status post coronary artery bypass surgery, cardiomyopathy with ejection fraction which is 10% to 15% and significant epigastric discomfort and pain aggravated by even taking solid foods. He can tolerate only liquids. He is on pain medicines which seems to al leviate his discomfort, especially when he has to eat. Appetite, however, is poor. PHYSICAL EXAMINATION: VITAL SIGNS: Stable. The patient is afebrile, heart rate is 20 and blood pressure is 113/70. LUNGS: Reveals to be relatively clear with decreased breath sounds at the bases. HEART: Reveals S1 and S2 to be audible. No gallop or murmur is heard. ABDOMEN: Soft. The patient has epigastric tenderness. EXTREMITIES: Reveals bilateral pedal edema, which is 1+. LABORATORY DATA: Reveals a white count of 10.4, hemoglobin 12, hematocrit 36 and platelet count of 1 41. PTT 65.8. Chemistry: Sodium is 135, K of 4.8, chloride is 101, CO2 of 30, BUN of 36 and creati nine 1.1. His total bilirubin is 2.5 with direct bilirubin of 1.4. ASSESSMENT NOTES AND PLAN: I discussed in detail with Dr. Montero who has previously spoken to Dr. Burton Bush of vascular intervention as well. The patient had been on Eliquis for development of por rickey vein thrombosis. At this point, since the patient is not doing well, he is a DO NOT RESUSCITATE and patient's family discussing about possible hospice, will keep him on heparin until further decis ions are made. No other significant choices are on hand. He may have to go home on Lovenox on the o ther hand if he is sent home if he decides to continue treatments with anticoagulation. In the meant vivian, the patient is a DNR. Prognosis is poor. We will discuss with primary attending on Wednesday. Sheryl Mendez MD cc: [phone] TT: 09/27/2016 00:12:40 Confirmation # [id number] Dictation # [id number] sn 09/27/2016 00:05:29
[2016-09-27] MEDS: oxyCODONE 10 mg Immediate Release Tab PO PRN (07:12)
[2016-09-27] MEDS: Morphine 2 mg/ml ISec IVP SCH ×3 (08:05→16:37)
[2016-09-27] MEDS: POLYETHYLENE GLYCOL 3350 17 GM/Dose PACKET PO SCH (10:33)
[2016-09-27] MEDS: Heparin25000 units/250ml 1/2NS 25,000 UNITS/250 ML BAG IV PRN (11:45)
--- NOTE | 2016-09-27 15:29 | PN ---
DATE: 09/27/2016 The patient is a 71-year-old, seen and examined, sitting in chair, eating his lunch. He does not hav e good appetite. However, he ate almost 50% of his lunch and complained of pain as soon as he eats. PHYSICAL EXAMINATION: VITAL SIGNS: He is afebrile, pulse 60, respirations 22, blood pressure 150/87. LUNGS: Bilaterally decreased breath sounds at bases. HEART: S1, S2 audible. ABDOMEN: Soft, distended with fluid thrill. EXTREMITIES: Bilateral legs +2 edema. LABORATORY EXAMINATION: WBCs 10.4, hemoglobin 12.3, hematocrit 36, platelets 141. PTT is 68.1. Bharati bibi: There is no new chemistry available today. However, his total bilirubin 5, his AST 84, ALT 78. ASSESSMENT: 1. Hypoalbuminemia with bilateral leg edema. 2. Portal vein thrombosis, on heparin. 3. Amiodarone-induced hepatitis. 4. Coronary artery disease, status post open heart surgery. 5. Dilated cardiomyopathy with ejection fraction of 15%-20%. PLAN: At this poin, we will keep patient comfortable. He is on heparin. Hs analgesics have been re cently increased. gentle laxative. He is on beta aron, MiraLax and he is getting Pepcid. We will follow up his electrolytes, CBC and PT, PTT in a.m. Princess Lyles MD cc: [phone] TT: 09/27/2016 15:28:47 Confirmation # [id number] Dictation # [id number] en
--- NOTE | 2016-09-27 22:21 | PN ---
DATE: 09/27/2016 SUBJECTIVE: This patient was seen and evaluated earlier. On examination, patient is complaining of still abdominal discomfort on pain medication. PHYSICAL EXAMINATION: VITAL SIGNS: Afebrile, heart rate 70, blood pressure 132/52 ABDOMEN: Distended, ascites present. EXTREMITIES: Bilateral pitting edema present. HEART: S1, S2 heard. LUNGS: Bilateral air entry present, reduced at the base. LABORATORY DATA: Hemoglobin is 12, hematocrit 36, PTT is 65.8. IMPRESSION: This 71-year-old patient with multiple medical problems, coronary artery disease, conges tive heart failure, has a poor ejection fraction, status post defibrillator, which was deactivated no w, history of portal vein thrombosis while on Eliquis and patient presently on heparin, history of pa roxysmal atrial fibrillation. PLAN: The patient is presently DNR. The family is discussing about hospice care. Prognosis is poor for this pleasant gentleman and Dr. Mendez's note was reviewed. The options were discussed. Kiana Smith MD cc: [phone] TT: 09/27/2016 22:20:17 Confirmation # [id number] Dictation # [id number] belle
--- NOTE | 2016-09-28 07:47 | PN ---
DATE: 09/28/2016 SUBJECTIVE: The patient has no complaints of any chest pain, no shortness of breath, no headache. Josette hall does have pain on eating. He says his narcotics do help with his pain management. PHYSICAL EXAMINATION: VITAL SIGNS: Temperature is 97.9, pulse of 70, blood pressure is 122/62, respirations 22. GENERAL: The patient comfortable, in no acute distress. HEENT: Anicteric sclerae. Moist mucosa. NECK: No JVD or adenopathy. CARDIAC: S1/S2. No murmurs. No rubs. Regular. RESPIRATORY: Clear to auscultation bilaterally. No wheezes, rales, or rhonchi. Good air entry. ABDOMEN: Bowel sounds are positive, soft, nontender, and nondistended. EXTREMITIES: No edema. Has 1+ pulses. ASSESSMENT: 1. Portal vein thrombosis. 2. Amiodarone-induced hepatitis. 3. Hepatosplenomegaly. 4. Malnutrition, moderate. 5. Ascites. 6. Transaminitis. 7. Acute kidney injury, resolved. 8. Ventricular tachycardia, status post defibrillator implant. 9. Coronary artery disease, status post coronary artery bypass graft. 10. Cardiomyopathy with an ejection fraction of 15%-20%. 11. Do not resuscitate. PLAN: The patient is currently comfortable. He is being followed by Dr. Mendez and Dr. Sarah khan om hematology and GI respectively. The patient has a poor prognosis. There are discussions about ho spice. The patient is on carvedilol. He is going to continue with Colace. He is on oxycodone for p ain. The patient is on a regular diet. Silvino Dong MD cc: [phone] TT: 09/28/2016 07:46:22 Confirmation # [id number] Dictation # [id number] en
[2016-09-28] MEDS: Morphine 2 mg/ml ISec IVP SCH (08:28)
[2016-09-28] MEDS ORDERED: Morphine 2 mg/ml ISec IVP SCH (08:51)
[2016-09-28] MEDS ORDERED: Morphine 4 mg/ml ISec IV ONE (09:00)
[2016-09-28] MEDS: POLYETHYLENE GLYCOL 3350 17 GM/Dose PACKET PO SCH (10:07)
--- NOTE | 2016-09-28 11:18 | CP.PCM.PN ---
Subjective - Date & Time of Evaluation Date of Evaluation: 09/28/16 Time of Evaluation: 09:00 - Subjective Subjective: Alert, weak, periods of confusion. Complains of abdominal pain after eating meals. In no acute distress Objective - Vital Signs/Intake and Output Vital Signs (last 24 hours): Temp Pulse Resp BP Pulse Ox 97.8 F 65 22 105/57 L 97 09/28/16 07:30 09/28/16 10:06 09/28/16 07:30 09/28/16 10:06 09/28/16 07:30 Intake and Output: 09/28/16 09/28/16 06:59 18:59 Intake Total 840 Output Total 525 Balance 315 - Medications Medications: Current Medications Carvedilol (Coreg) 6.25 mg PO BID [facility] Last Admin: 09/28/16 10:06 Dose: Not Given Digoxin (Lanoxin) 0.125 mg PO 1400 [facility] Last Admin: 09/20/16 14:59 Dose: Not Given Docusate Sodium (Colace) 100 mg PO BID [facility] Last Admin: 09/28/16 10:06 Dose: Not Given Famotidine (Pepcid) 20 mg PO DAILY [facility] Last Admin: 09/28/16 10:08 Dose: 20 mg Heparin Sodium/Sodium Chloride (Heparin 54524 Units/250ml 1/2 Normal Saline) 25 ,000 units in 250 mls @ 11.716 mls/hr IV .[id number] PRN; Protocol; 18 UNITS/KG/HR PRN Reason: ADJUST RATE PER PROTOCOL Last Admin: 09/27/16 11:45 Dose: 11.21 units/kg/hr, 7.297 mls/hr Morphine Sulfate (Morphine) 4 mg IV AC [facility] Nortriptyline HCl (Pamelor) 25 mg PO [facility] Last Admin: 09/19/16 22:07 Dose: 25 mg Oxycodone HCl (Oxycodone Immediate Release Tab) 10 mg PO Q4H PRN PRN Reason: Pain, moderate (4-7) Last Admin: 09/27/16 07:12 Dose: 10 mg Polyethylene Glycol (Miralax) 17 gm PO DAILY [facility] Last Admin: 09/28/16 10:07 Dose: Not Given - Labs Labs: 09/24/16 06:30 09/24/16 06:30 PT 14.8 Seconds (9.9-11.8) H 09/18/16 17:00 INR 1.37 (0.93-1.08) H 09/18/16 17:00 APTT 57.5 Seconds (23.7-30.8) H 09/28/16 05:00 - Constitutional Appears: Cachectic, Chronically Ill - Head Exam Additional comments: healing right temporal abrasion - Eye Exam Eye Exam: Normal appearance, PERRL - ENT Exam ENT Exam: Mucous Membranes Moist, Normal Oropharynx - Neck Exam Neck Exam: Normal Inspection - Respiratory Exam Respiratory Exam: Decreased Breath Sounds, NORMAL BREATHING PATTERN - Cardiovascular Exam Cardiovascular Exam: REGULAR RHYTHM, +S1, +S2 - GI/Abdominal Exam GI & Abdominal Exam: Distended, Tenderness, Normal Bowel Sounds - Extremities Exam Extremities Exam: Pedal Edema - Back Exam Back Exam: NORMAL INSPECTION - Skin Skin Exam: Dry, Pallor Assessment and Plan - Assessment and Plan (Free Text) Assessment: 71 year old male admitted with portal vein thrombus, post parandial epigastric pain, cachexia, ascites.History of liver cirrhosis, coagulopathy, dilated cardiomyopathy, ICD which has been deactivated. He is DNR/DNI. Patient has pain level at about 5 throughout the day, pain escalates after meals. The patient is slightly confused today. He is weak and unsteady on his feet. He is aware of his prognosis and wants to go home with hospice care. He is reminded that he can not care for himself. Patient's daughter unable to care for her father in his home as she has a young family and lives in [facility]. Daughter in discussion with correctional casework specialist and social executive secretary social welfare, planning for discharge to either her home with hospice services or placement in a hospice facility near her. Plan: Recommendations; Pain Management: Would add Oxycodone ER 10 mg twice daily. Continue Morphine IR 10 mg prior to meals Continue current bowel regimen, Miralax 17 gms dialy, Colace 100mg twice daily. Monitor for opioid induced constipation. Will assist with end of life care planning
[2016-09-28] MEDS: Morphine 4 mg/ml ISec IV SCH ×2 (11:53→16:10)
[2016-09-28] MEDS: Heparin25000 units/250ml 1/2NS 25,000 UNITS/250 ML BAG IV PRN (18:46)
[2016-09-29] MEDS: Morphine 4 mg/ml ISec IV SCH (08:00)
[2016-09-29] MEDS: POLYETHYLENE GLYCOL 3350 17 GM/Dose PACKET PO SCH (10:28)
[2016-09-29] MEDS: Morphine 4 mg/ml ISec IV PRN ×2 (12:01→17:00)
--- NOTE | 2016-09-29 13:01 | PN ---
DATE: 09/29/2016 Seen and examined at the bedside earlier today. The patient complained of loose stool. He had an ac cident earlier this morning at 4:00 a.m. He was very upset. His Colace and MiraLax were not given. He still gets the epigastric discomfort after eating. His pain medications have been increased. No nausea or vomiting. The patient states he just wants to go home. VITAL SIGNS: Temperature is 98.2, blood pressure 120/78, pulse 78, respirations 20, 96 on room air. BLOOD WORK: No new labs are noted. PHYSICAL EXAMINATION: HEENT: Sclerae is anicteric. NECK: Supple. CARDIAC: S1, S2. LUNGS: Sounds with decreased breath sounds but good air entry, no rales or wheeze. ABDOMEN: With bowel sounds. He is distended. Positive epigastric tenderness. No rebound or guardi ng. EXTREMITIES: Positive bilateral lower edema. NEUROLOGIC: Awake, alert, and oriented. ASSESSMENT: Portal vein thrombosis, amiodarone-induced hepatitis, hepatosplenomegaly, malnutrition, ascites, transaminitis, history of defibrillator which has been turned off, coronary artery disease w ith a coronary artery bypass graft. The patient had episode of diarrhea. PLAN: We will, right now, hold on the MiraLax and stool softeners. He remains on heparin drip right now. He is getting oxycodone. He is also on morphine and fentanyl. It looks like the family was t alking to social media executive and deciding on a hospice facility. His daughter was at the bedside. Arrang ements, I believe, are being made for patient to go to [place]. The patient was seen and case discussed with Dr. Smith. Inessa SUTHERLAND cc: [phone] TT: 09/29/2016 13:01:21 Confirmation # [id number] Dictation # [id number] sn
--- NOTE | 2016-09-29 15:52 | PN ---
DATE: 09/29/2016 SUBJECTIVE: The patient has no complaints of any chest pain, no shortness of breath, no headaches or dizziness. He says his pain is not well controlled. He is asking to have more pain medications. PHYSICAL EXAMINATION: VITAL SIGNS: Temperature is 98.2, pulse is 78, blood pressure is 120/78, respirations are 20. GENERAL: The patient comfortable, in no acute distress. HEENT: Anicteric sclerae. Moist mucosa. NECK: No JVD or adenopathy. CARDIAC: S1/S2. No murmurs. No rubs. Regular. RESPIRATORY: Clear to auscultation bilaterally. No wheezes, rales, or rhonchi. Good air entry. ABDOMEN: Bowel sounds are positive, soft, nontender, and nondistended. EXTREMITIES: No edema. Has 1+ pulses. ASSESSMENT: 1. Portal vein thrombosis. 2. Amiodarone-induced hepatitis. 3. Hepatosplenomegaly. 4. Malnutrition. 5. Diabetes. 6. Transaminitis. 7. Acute kidney injury, resolved. 8. Ventricular tachycardia, status post defibrillator. 9. Cardiomyopathy with an EF of 15%-20%. 10. Coronary artery disease, status coronary artery bypass graft. PLAN: The patient is currently comfortable. I will increase his morphine to every hours. I s poke to the patient's daughter at the bedside to give her an update. The patient is on Pepcid. He is going to continue with oxycodone as well. I started him on fentanyl patch to help better control hi s pain, medications long-term. He is on carvedilol. I also spoke with Estella Ward, nurse, and [facility] o the director social service and housing case manager. I filled out forms for [facility]. The patient is curren tly comfortable. We will continue the patient on heparin for now. Silvino Dong MD cc: [id number] TT: 09/29/2016 15:52:26 Confirmation # [id number] Dictation # [id number] dina
[2016-09-29] MEDS: Heparin25000 units/250ml 1/2NS 25,000 UNITS/250 ML BAG IV PRN (17:08)
--- NOTE | 2016-09-30 01:22 | PN ---
DATE: 09/29/2016 ADDENDUM This is an addendum to the GI progress report dictated by Inessa Potts APN. The patient has signific ant abdominal distention and abdominal discomfort. The patient has been on pain medication, morphine on a p.r.n. basis. On intravenous heparin. Supportive care. On examination, abdomen is significantly distended. Continue the current supportive comfort care. T he patient has a defibrillator now turned off. The patient is also DNR/DNI. Kiana Smith MD cc: [id number] TT: 09/30/2016 01:21:56 Confirmation # [id number] Dictation # [id number] dn
[2016-09-30] MEDS: Morphine 4 mg/ml ISec IV PRN ×3 (04:28→14:25)
--- NOTE | 2016-09-30 08:57 | PN ---
DATE: 09/30/2016 SUBJECTIVE: The patient has no complaints of any headaches or dizziness, no nausea. He says that th e fentanyl patch does help improve the pain. PHYSICAL EXAMINATION: VITAL SIGNS: Temperature is 97.7, pulse is 71, blood pressure 116/70, respirations 22. GENERAL: The patient comfortable, in no acute distress. HEENT: Anicteric sclerae. Moist mucosa. NECK: No JVD or adenopathy. CARDIAC: S1/S2. No murmurs. No rubs. Regular. RESPIRATORY: Clear to auscultation bilaterally. No wheezes, rales, or rhonchi. Good air entry. ABDOMEN: Bowel sounds are positive, soft, nontender, and nondistended. EXTREMITIES: No edema. Has 1+ pulses. LABORATORY DATA: White count of 10.4, hemoglobin 12.3, creatinine is 1.1. ASSESSMENT: 1. Portal vein thrombosis. 2. Amiodarone-induced hepatitis 3. Hepatosplenomegaly. 4. Malnutrition. 5. Diabetes type 2. 6. Transaminitis. 7. Acute kidney injury, resolved. 8. Cardiomyopathy with an ejection fraction of 15-20%. 9. Automatic implantable cardioverter-defibrillator. 10. Coronary artery disease, status post coronary artery bypass graft. PLAN: The patient is on Colace. He is going to continue on fentanyl patch. The patient is on digox in. He is going to be on MiraLax for constipation. He is on oxycodone for breakthrough pain. He is also on IV morphine for breakthrough pain. He is on Pepcid daily. He is on Pamelor. He is on a re gular diet. Silvino Dong MD cc: [id number] TT: 09/30/2016 08:56:22 Confirmation # [id number] Dictation # [id number] tn
--- NOTE | 2016-09-30 09:03 | PN ---
DATE: 09/30/2016 SUBJECTIVE: The patient is seen lying in bed on 5R. He remains uncomfortable with persistent abdomi nal pain. His appetite is poor. He wishes to go home at this point in time. He is reluctant to go to a hospice facility near his daughter as he feels this would be a burden to her. CURRENT MEDICATIONS: Include carvedilol 6.25 mg b.i.d., Duragesic patch, intravenous heparin, morphi ne and oxycodone p.r.n. as well as nortriptyline 25 mg at bedtime and Pepcid 20 mg daily. PHYSICAL EXAMINATION: GENERAL: He is a cachectic appearing middle-aged man. VITAL SIGNS: Blood pressure 116/70, the pulse of 70, respirations are 14. He is afebrile. HEENT: Temporal wasting noted. HEENT: No JVD. CHEST: A few scattered rhonchi noted. HEART: PMI displaced laterally with soft tones present. ABDOMEN: Soft, distended. Bowel sounds are present. EXTREMITIES: 1+ leg edema. DIAGNOSTIC DATA: No blood work pending from this morning. IMPRESSION: 1. Abdominal pain, likely secondary to mesenteric ischemia related to a portal vein thrombosis. 2. Congestive heart failure class II-III at this time, chronic, systolic, fairly compensated. 3. Known coronary artery disease, status post prior myocardial infarction and prior bypass surgery. 4. Status post implantable cardioverter-defibrillator which has been deactivated given his do not re suscitate status. 5. Rest of problems as noted. RECOMMENDATIONS: Continued comfort care is advisable. Digoxin will be withheld. Disposition plans are pending based upon the patient's wishes and family arrangements. As noted, a DNR is in place. I will be happy to follow along as needed. Ankit Montero MD cc: [id number] TT: 09/30/2016 09:02:48 Confirmation # [id number] Dictation # [id number] belle
[2016-09-30] MEDS: POLYETHYLENE GLYCOL 3350 17 GM/Dose PACKET PO SCH (10:33)
[2016-09-30 16:37] VITALS: O2SAT 97
[2016-10-01] MEDS: Heparin25000 units/250ml 1/2NS 25,000 UNITS/250 ML BAG IV PRN (06:06)
--- NOTE | 2016-10-01 07:02 | PN ---
DATE: 10/01/2016 SUBJECTIVE: The patient says his pain is controlled with the medication. He has no complaints of an y chest pain. No shortness of breath, no headaches. PHYSICAL EXAMINATION: VITAL SIGNS: Temperature is 98.9, pulse of 76, blood pressure 132/84, respirations 18. GENERAL: The patient comfortable, in no acute distress. HEENT: Anicteric sclerae. Moist mucosa. NECK: No JVD or adenopathy. CARDIAC: S1/S2. No murmurs. No rubs. Regular. RESPIRATORY: Clear to auscultation bilaterally. No wheezes, rales, or rhonchi. Good air entry. ABDOMEN: Bowel sounds are positive, soft, nontender, and nondistended. EXTREMITIES: No edema. Has 1+ pulses. LABORATORY DATA: White count of 10.4, hemoglobin 12.3, creatinine is 1.1. ASSESSMENT: 1. Portal vein thrombosis. 2. Amiodarone-induced hepatitis. 3. Hepatosplenomegaly. 4. Malnutrition. 5. Diabetes type 2. 6. Transaminitis. 7. Acute kidney injury, resolved. 8. Cardiomyopathy with an ejection fraction of 15-20%. 9. Automatic implantable cardioverter defibrillator. 10. Coronary artery disease, status post coronary artery bypass graft. PLAN: The patient is comfortable. He has his AICD that has been deactivated The patient is on long- acting fentanyl patch for pain control. He is on carvedilol. He is going to continue with his hepar in. He is on morphine for pain for breakthrough as well as oxycodone. He is on a regular diet. Silvino Dong MD cc: [id number] TT: 10/01/2016 07:01:28 Confirmation # [id number] Dictation # [id number] tn
[2016-10-01 07:54] VITALS: BP 109/57; PULSE 71; RESP 12; TEMP 97
[2016-10-01] MEDS ORDERED: Scopolamine 1.5 mg/24 hr Patch TD SCH (08:15)
[2016-10-01] MEDS: Morphine 4 mg/ml ISec IV PRN (09:14)
[2016-10-01] MEDS: POLYETHYLENE GLYCOL 3350 17 GM/Dose PACKET PO SCH (09:26)
--- NOTE | 2016-10-01 09:59 | CP.PCM.PN ---
<Marylu Ward F - Last Filed: 10/01/16 11:57> Subjective - Date & Time of Evaluation Date of Evaluation: 10/01/16 Time of Evaluation: 10:00 - Subjective Subjective: Unresponsive,shallow, irregular breathing. Objective - Vital Signs/Intake and Output Vital Signs (last 24 hours): Temp Pulse Resp BP Pulse Ox 97.0 F L 71 12 109/57 L 97 10/01/16 07:30 10/01/16 07:30 10/01/16 07:30 10/01/16 07:30 10/01/16 07:30 Intake and Output: 10/01/16 10/01/16 06:59 18:59 Intake Total 685 Output Total 550 Balance 135 - Medications Medications: Current Medications Acetaminophen (Tylenol 650 Mg Supp) 650 mg RC Q4H PRN PRN Reason: Fever >100.4 F Fentanyl (Duragesic) 1 patch TD Q72H [facility] Last Admin: 09/29/16 10:33 Dose: 1 patch Morphine Sulfate (Morphine) 4 mg IV Q4 PRN PRN Reason: Pain, moderate (4-7) Last Admin: 10/01/16 09:14 Dose: 4 mg Scopolamine (Transderm-Scop) 1 patch TD Q3D [facility] Last Admin: 10/01/16 09:13 Dose: 1 patch - Labs Labs: 09/24/16 06:30 09/24/16 06:30 PT 14.8 Seconds (9.9-11.8) H 09/18/16 17:00 INR 1.37 (0.93-1.08) H 09/18/16 17:00 APTT 56.0 Seconds (23.7-30.8) H 10/01/16 06:40 - Constitutional Appears: Cachectic, Chronically Ill - Eye Exam Eye Exam: Scleral icterus - ENT Exam ENT Exam: Mucous Membranes Moist - Respiratory Exam Respiratory Exam: Decreased Breath Sounds Additional comments: irregular,shallow - Cardiovascular Exam Cardiovascular Exam: +S1, +S2 - GI/Abdominal Exam GI & Abdominal Exam: Distended, Soft, Diminished Bowel Sounds - Extremities Exam Additional comments: 2+bilateral lower extremity edema, decreases pulses - Neurological Exam Neurological Exam: Altered - Skin Skin Exam: Dry, Pallor Assessment and Plan - Assessment and Plan (Free Text) Assessment: 71 year old male admitted with portal vein thrombus, hepatospleenomegaly, cardiomyopathy, XENIA. ICD deactivated. Patient is DNR/DNI. He is unresponsive, shallow irregular breathing Patients daughter Joyce at bedside. Signs and symptoms of impending explained. Daughter aware that patient is nearing end of life. Daughter expresses acceptance of situation. Daughter requesting that patient receive comfort care only. She has asked that we stop all medication/ testing. Daughter agrees to continue medications for pain and symptom management. Psychosocial support given. Spiritual support offered. Time spent in discussion with daughter regrading end of life counseling, 30 minutes Plan: Discussed with Dr. Josette Dong, who is in agreement, Comfort measures only. Discontinue heparin,oral medications, laboratory testing. Continue Fentanyl 25 mcg, Morphine 4 mg every 4 hours as needed for pain. Scopolamine transdermal patch. Tylenol 650 mg RC for fever over 100 F <Lisa Natarajan - Last Filed: 10/05/16 15:15> Objective - Vital Signs/Intake and Output Vital Signs (last 24 hours): Temp Pulse Resp BP Pulse Ox 97.0 F L 71 12 109/57 L 97 10/01/16 07:30 10/01/16 07:30 10/01/16 07:30 10/01/16 07:30 10/01/16 07:30 Intake and Output: 10/01/16 10/01/16 06:59 18:59 Intake Total 685 Output Total 550 Balance 135 - Medications Medications: Current Medications Acetaminophen (Tylenol 650 Mg Supp) 650 mg RC Q4H PRN PRN Reason: Fever >100.4 F Fentanyl (Duragesic) 1 patch TD Q72H [facility] Last Admin: 09/29/16 10:33 Dose: 1 patch Morphine Sulfate (Morphine) 4 mg IV Q4 PRN PRN Reason: Pain, moderate (4-7) Last Admin: 10/01/16 09:14 Dose: 4 mg Scopolamine (Transderm-Scop) 1 patch TD Q3D [facility] Last Admin: 10/01/16 09:13 Dose: 1 patch - Labs Labs: 09/24/16 06:30 09/24/16 06:30 PT 14.8 Seconds (9.9-11.8) H 09/18/16 17:00 INR 1.37 (0.93-1.08) H 09/18/16 17:00 APTT 56.0 Seconds (23.7-30.8) H 10/01/16 06:40 Attending/Attestation - Attestation Notes (Text): 10/05/16 15:13 Sariry,I entered this note by mistake.
--- NOTE | 2016-10-01 11:23 | CP.PCM.PRO ---
Pronouncement of Note - Clinical Findings Physical Exam: No Response Verbal/Painful Stimuli, Absent Peripheral Pulses{ Carotid & Femoral}, Absent Heart & Breath Sounds, No Pupillary Light Reflex, No Corneal Reflex, Pupils Fixed & Dilated, Absence of Vital Signs - Pronouncement Time Time of Pronouncement of : 10:57 Additional Comments: Pt has DNR/DNI orders on file - Notifications Pronouncement Notifications: Family Notified, Atending Notified Phototypesetting Equipment Monitor Notified: No - Autopsy Autopsy Requested: No - [place] [id number]
--- NOTE | 2016-10-11 14:23 | DS ---
This is a 71-year-old male who had come into the hospital with abdominal pain. He had an extensive w orkup that showed he had a portal vein thrombosis and had failed anticoagulation with Eliquis. He wa s placed on heparin. There were multiple discussions about advanced directives, end of life care. T he patient wanted to be comfortable and the family agreed. The patient . [facility] He was comfortable. Please see the note that was dictated on 10/01/2016 for details and disc harge diagnoses. Silvino Dong MD cc: [id number] TT: 10/11/2016 14:23:13 en
== END 2016-10-01 10:57 | DRG 442 ==
LOC: ED 10:24 → ERH 13:34 → 2RSO 16:17 → 5RNO 09-21 11:58
PROVIDERS: ADMIT Internal Medicine Nephrology; ATTEND Internal Medicine Nephrology
DX: I81 Portal vein thrombosis (principal); K75.89 Other specified inflammatory liver diseases; T46.2X5A Adverse effect of other antidysrhythmic drugs, initial encounter; K55.9 Vascular disorder of intestine, unspecified; I47.2 Ventricular tachycardia; N17.9 Acute kidney failure, unspecified; E44.0 Moderate protein-calorie malnutrition; R64 Cachexia; I42.0 Dilated cardiomyopathy; I48.0 Paroxysmal atrial fibrillation; K27.9 Peptic ulcer, site unspecified, unspecified as acute or chronic, without hemorrhage or perforation; I50.20 Unspecified systolic (congestive) heart failure; I13.0 Hypertensive heart and chronic kidney disease with heart failure and stage 1 through stage 4 chronic kidney disease, or unspecified chronic kidney disease; R18.8 Other ascites; K74.60 Unspecified cirrhosis of liver; J44.9 Chronic obstructive pulmonary disease, unspecified; E78.5 Hyperlipidemia, unspecified; G89.29 Other chronic pain; I25.5 Ischemic cardiomyopathy; I25.10 Atherosclerotic heart disease of native coronary artery without angina pectoris; B19.20 Unspecified viral hepatitis C without hepatic coma; R16.2 Hepatomegaly with splenomegaly, not elsewhere classified; R74.0 Nonspecific elevation of levels of transaminase and lactic acid dehydrogenase [LDH]; K80.20 Calculus of gallbladder without cholecystitis without obstruction; N18.9 Chronic kidney disease, unspecified; H91.93 Unspecified hearing loss, bilateral; K59.00 Constipation, unspecified; D64.9 Anemia, unspecified; R26.81 Unsteadiness on feet; E11.22 Type 2 diabetes mellitus with diabetic chronic kidney disease; Z66 Do not resuscitate; Z51.5 Encounter for palliative care; S00.83XA Contusion of other part of head, initial encounter; W19.XXXA Unspecified fall, initial encounter; Y93.89 Activity, other specified; Y99.8 Other external cause status; Y92.099 Unspecified place in other non-institutional residence as the place of occurrence of the external cause; I25.2 Old myocardial infarction; Z95.810 Presence of automatic (implantable) cardiac defibrillator; Z95.5 Presence of coronary angioplasty implant and graft; Z87.891 Personal history of nicotine dependence; Z95.1 Presence of aortocoronary bypass graft; Z86.010 Personal history of colon polyps; Z79.01 Long term (current) use of anticoagulants; Z98.84 Bariatric surgery status; Z82.49 Family history of ischemic heart disease and other diseases of the circulatory system; Z82.5 Family history of asthma and other chronic lower respiratory diseases